=== PATIENT | female | born 1965 | race Caucasian/White ===

== ENCOUNTER 2018-08-25 11:34 | Outpatient (REF) | payer BC, MEDICAID, SELFPAY ==
[2018-08-25 15:22] LABS: Iron 40 ug/dL (50-175); Total Iron Binding Capacity 299 ug/dL (250-450); Transferrin Sat 13 % (15-50)
[2018-08-25 15:38] LABS: Anion Gap 6.8 mmol/L (3-11); BUN 13 mg/dL (7-18); CO2 30.2 mmol/L (21.0-32.0); CREATININE 1.04 mg/dL (0.55-1.02); Calcium 9.1 mg/dL (8.5-10.1); Chloride 105 mmol/L (98-107); Estimated GFR 55.65 (mL/min/1.73m2); Ferritin 47 ng/mL (8-388); Glucose 89 mg/dL (70-100); Magnesium 1.7 mg/dL (1.8-2.4); Sodium 142 mmol/L (136-145); TSH (W/Ref FT4) 1.64 uIU/mL (0.358-3.74); Vitamin B12 371 pg/mL (193-986)
== END 2018-08-25 11:54 ==
LOC: NCHCN 11:34
PROVIDERS: PCP Internal Medicine; Visit Provider Nurse Practitioner Family
DX: R10.30 Lower abdominal pain, unspecified (principal); G47.62 Sleep related leg cramps; R06.3 Periodic breathing; M54.89 Other dorsalgia; I10 Essential (primary) hypertension; F41.8 Other specified anxiety disorders; K30 Functional dyspepsia; E66.9 Obesity, unspecified; I50.9 Heart failure, unspecified; I25.2 Old myocardial infarction
CPT/HCPCS: 80048; 82607; 82728; 83540; 83550; 83735; 84443

== ENCOUNTER 2018-09-21 01:38 | Outpatient (CLI) | payer BC, MEDICAID, SELFPAY ==
--- NOTE | 2018-09-21 13:11 | DI.US_ITS ---
SYMPTOM/DIAGNOSIS: SUPRAPUBIC PAIN, R10.30 PELVIC ULTRASOUND: Transabdominal and transvaginal examination was performed. The uterus measures 7.5 cm long by 3/2 cm AP by 5.3 cm. transverse. There is an intrauterine device in good position within the endometrial canal. There is a 1.9 x 1.7 x 1.9 cm hypoechoic mass in the right fundal region of the uterus likely reflecting a fibroid The right ovary measures 1.9 x 1.1 x 1.0 cm. The left ovary measures 1.8 x 1 x 1.6 cm. The ovaries are unremarkable. No free pelvic fluid or hydronephrosis is identified. IMPRESSION: 1. 19 cm uterine fibroid 2. IUD in good position.
--- NOTE | 2018-09-21 13:56 | MERGE_ITS ---
*[facility]* *[facility]* [address] [place] [address] Date of study: 09/21/2018 Transthoracic Echocardiography M-mode, complete 2D, complete spectral Doppler, and color Doppler *STUDY CONCLUSIONS* Summary: 1. Left ventricle: The cavity size was normal. Wall thickness was at the upper limits of normal. Systolic function was normal. The estimated ejection fraction was 60-65%. Wall motion was normal; there were no regional wall motion abnormalities. 2. Right ventricle: The cavity size was normal. Systolic function was normal. 3. Left atrium: The atrium was moderately dilated. 4. Mitral valve: Mildly calcified annulus. Mildly thickened leaflets. There was mild regurgitation. 5. Pulmonary arteries: Pulmonary systolic pressure was increased, in the range of 40mm Hg to 45mm Hg. 6. Inferior vena cava: The vessel was patent and normal in size. The respirophasic diameter changes were in the normal range (greater than or equal to 50%), consistent with normal central venous pressure. *PATIENT PRESENTATION* Height: 152.4cm ((60in) ) S/D Pressure: 108 / 66 Weight: 99.8kg ((219.5lb) ) BSA: 2.12m^2 Test start time: 02:10 PM. Test stop time: 02:50 PM. CONSULTING Monty Gibbs MD PERFORMING Unknown ORDERING Leila Ayoub Aprn REFERRING Leila Ayoub Aprn PERFORMING [facility] [employer]TE[employer]CUITS INSPECTOR RT Pita (R)(CT), ADDY *PROCEDURE DATA* Procedure information: The patient was identified by two identifiers. This study was interpreted by [facility]. Pertinent images and digital data are archived for permanent storage and are available for subsequent review. No prior study was available for comparison. Study status: Routine. Transthoracic echocardiography. M-mode, complete 2D, complete spectral Doppler, and color Doppler. A Transthoracic Echocardiogram was performed. Scanning was performed from the parasternal, apical, subcostal, and suprasternal notch acoustic windows. Images were obtained using an [id number] cardiac ultrasound machine. Image quality was adequate. Study completion: The patient tolerated the procedure well. There were no complications. History: PMH: Impaired LV EF following NSTEMI ; LVRF40% I50.9 HX of NSTEMI due to hypoxia *CARDIAC ANATOMY* Left ventricle: The cavity size was normal. Wall thickness was at the upper limits of normal. Systolic function was normal. The estimated ejection fraction was 60-65%. Wall motion was normal; there were no regional wall motion abnormalities. Findings consistent with diastolic dysfunction. There was no evidence of elevated ventricular filling pressure by Doppler parameters. Aortic valve: Trileaflet; normal thickness leaflets. Mobility was not restricted. Doppler: Transvalvular velocity was within the normal range. There was no stenosis. There was no significant regurgitation. VTI ratio of LVOT to aortic valve: 0.64. Valve area (VTI): 2.1cm^2. Indexed valve area (VTI): 1cm^2/m^2. Peak velocity ratio of LVOT to aortic valve: 0.65. Valve area (Vmax): 2.1cm^2. Indexed valve area (Vmax): 1cm^2/m^2. Mean velocity ratio of LVOT to aortic valve: 0.65. Valve area (Vmean): 2.1cm^2. Indexed valve area (Vmean): 1cm^2/m^2. Mean gradient (S): 8.4mm Hg. Peak gradient (S): 15.8mm Hg. Aorta: Aortic root: The aortic root was normal in size. Ascending aorta: The ascending aorta was normal in size. Mitral valve: Mildly calcified annulus. Mildly thickened leaflets. Mobility was not restricted. Doppler: Transvalvular velocity was within the normal range. There was no evidence for stenosis. There was mild regurgitation. Valve area by pressure half-time: 2.9cm^2. Indexed valve area by pressure half-time: 1.4cm^2/m^2. Peak gradient (D): 4.5mm Hg. Left atrium: The atrium was moderately dilated. Right ventricle: The cavity size was normal. Systolic function was normal. Pulmonic valve: The pulmonary valve appears to be grossly normal. Doppler: Transvalvular velocity was within the normal range. There was no evidence for stenosis. There was trivial regurgitation. Tricuspid valve: Structurally normal valve. Doppler: Transvalvular velocity was within the normal range. There was no evidence for stenosis. There was mild regurgitation. Pulmonary artery: The main pulmonary artery was normal-sized. Pulmonary systolic pressure was increased, in the range of 40mm Hg to 45mm Hg. Right atrium: The atrium was normal in size. Pericardium: There was no pericardial effusion. Systemic veins: Inferior vena cava: Well visualized. The vessel was patent and normal in size. The respirophasic diameter changes were in the normal range (greater than or equal to 50%), consistent with normal central venous pressure. Baseline ECG: Normal sinus rhythm. Measurements Left ventricle Value Reference LV ID, ED, PLAX 5.5 cm 3.5 - 6.0 LV ID, ES, PLAX 3.7 cm 2.1 - 4.0 LV PW thickness, ED, PLAX 1.0 cm LV end-diastolic volume, 1-p A2C 108 ml LV ejection fraction, 1-p A2C 61 % LV end-diastolic volume, 1-p A4C 105 ml LV ejection fraction, 1-p A4C 68 % LV e', lateral 0.085 m/sec LV E/e', lateral 13 LV e', medial 0.078 m/sec LV E/e', medial 14 LV e', average 0.081 m/sec LV E/e', average 13 Ventricular septum Value Reference IVS thickness, ED, PLAX 1.1 cm LVOT Value Reference LVOT ID, A-P 2.0 cm LVOT area 3.2 cm^2 LVOT peak velocity, S 1.29 m/sec LVOT mean velocity, S 0.9 m/sec LVOT VTI, S 27.7 cm LVOT peak gradient, S 6.6 mm Hg LVOT mean gradient, S 3.7 mm Hg Stroke volume (SV), LVOT DP 90 ml Stroke index (SV/bsa), LVOT DP 42 ml/m^2 Aortic valve Value Reference Aortic valve peak velocity, S 2 m/sec Aortic valve mean velocity, S 1.39 m/sec Aortic valve VTI, S 43.0 cm Aortic mean gradient, S 8.4 mm Hg Aortic peak gradient, S 15.8 mm Hg VTI ratio, LVOT/AV 0.64 Aortic valve area, VTI 2.1 cm^2 Velocity ratio, peak, LVOT/AV 0.65 Aortic valve area, peak velocity 2.1 cm^2 Velocity ratio, mean, LVOT/AV 0.65 Aortic valve area, mean velocity 2.1 cm^2 Aortic valve area/bsa, mean velocity 1 cm^2/m^2 Aorta Value Reference Aortic root ID, ED 2.8 cm Ascending aorta ID, A-P, S 3.5 cm Left atrium Value Reference LA ID, A-P, ES 4.3 cm LA ID/bsa, A-P 2.0 cm/m^2 <=2.2 LA area, ES, A4C (H) 27.7 cm^2 8.8 - 23.4 LA volume/bsa, ES, 1-p A4C 50 ml/m^2 LA/aortic root ratio 1.5 Mitral valve Value Reference Mitral E-wave peak velocity 1.06 m/sec Mitral A-wave peak velocity 1.21 m/sec Mitral deceleration time (H) 263 ms 150 - 230 Mitral pressure half-time 76 ms Mitral peak gradient, D 4.5 mm Hg Mitral E/A ratio, peak 0.88 Mitral valve area, PHT, DP 2.9 cm^2 Pulmonary veins Value Reference Pulmonary vein peak velocity, S 0.53 m/sec Pulmonary vein peak velocity, D 0.34 m/sec Pulmonary vein velocity ratio, peak, 1.56 S/D Pulmonary vein A-wave reversal peak 0.26 m/sec velocity Pulmonary vein A-wave reversal 191 ms duration Tricuspid valve Value Reference Tricuspid regurg peak velocity 3.2 m/sec Tricuspid peak RV-RA gradient 41 mm Hg Right atrium Value Reference RA area, ES, A4C 16.6 cm^2 8.3 - 19.5 Legend: (L) and (H) torres values outside specified reference range. I have personally reviewed the images and have reviewed and edited the reported findings. Electronically signed by Lila Lawrence 09/21/2018 15:17
== END 2018-09-21 01:58 ==
PROVIDERS: PCP Internal Medicine; Visit Provider Nurse Practitioner Family
DX: I50.9 Heart failure, unspecified (principal); I34.0 Nonrheumatic mitral (valve) insufficiency; I25.2 Old myocardial infarction; R10.30 Lower abdominal pain, unspecified; D25.9 Leiomyoma of uterus, unspecified; Z97.5 Presence of (intrauterine) contraceptive device
CPT/HCPCS: 76830; 76856; 93306

== ENCOUNTER 2018-12-08 15:53 | Outpatient (REF) | payer BC, MEDICAID, SELFPAY ==
[2018-12-08 21:27] LABS: Magnesium 1.8 mg/dL (1.8-2.4)
== END 2018-12-08 16:13 ==
LOC: NCHCN 15:53
PROVIDERS: PCP Internal Medicine; Visit Provider Nurse Practitioner Family
DX: D25.9 Leiomyoma of uterus, unspecified (principal); I27.21 Secondary pulmonary arterial hypertension; R06.83 Snoring; E87.6 Hypokalemia; I10 Essential (primary) hypertension; K30 Functional dyspepsia; E66.9 Obesity, unspecified
CPT/HCPCS: 83735

== ENCOUNTER 2019-02-02 14:41 | Outpatient (REF) | payer BC, MEDICAID, SELFPAY ==
[2019-02-02 21:10] LABS: Magnesium 1.8 mg/dL (1.8-2.4); Potassium 3.9 mmol/L (3.5-5.1)
[2019-02-02 21:17] LABS: HCT 37.1 % (36.0-46.0); HGB 12.2 g/dL (12.0-15.5); Mean Corp. HGB Concentration 32.9 g/dL (32.0-36.0); Mean Corpuscular Hemoglobin 29.2 pg (27.0-33.0); Mean Corpuscular Volume 88.8 fL (80-95); Mean Platelet Volume 12.3 fL (8.0-11.0); Platelet Count 245 x1000/uL (130-400); RBC 4.18 m/cumm (4.00-5.20); RBC Distribution Width 13.3 % (11.7-14.6); White Blood Cell Count 8.36 k/cumm (4.4-10.8)
[2019-02-02 21:27] LABS: Iron 72 ug/dL (50-175)
== END 2019-02-02 15:01 ==
LOC: NCHCN 14:41
PROVIDERS: PCP Internal Medicine; Visit Provider Nurse Practitioner Family
DX: I10 Essential (primary) hypertension (principal); R51 Headache; E83.42 Hypomagnesemia; I27.21 Secondary pulmonary arterial hypertension; R42 Dizziness and giddiness; G47.62 Sleep related leg cramps
CPT/HCPCS: 85027; 83540; 83735; 84132

== ENCOUNTER 2019-02-23 01:05 | Outpatient (CLI) | payer BC, MEDICAID, SELFPAY ==
--- NOTE | 2019-02-23 13:41 | DI.MAMMO_ITS ---
SYMPTOM/DIAGNOSIS: SCREENING, Z12.31, FAMILY HX, Z80.3 MAMMOGRAMS: Mammograms were interpreted according to the usual protocol including computer analysis with CAD system, tomosynthesis and C view imaging. Comparison with prior examinations. Breast density B. No suspicious masses or microcalcifications are seen. There is no definite evidence of malignancy. IMPRESSION: Negative mammogram. Routine screening is recommended. Category I. MQSA ASSESSMENT OF FINDINGS: Negative. Category 1. Patient will receive a letter notifying them of these results. BI-RADS category B. There are scattered areas of fibroglandular density.
== END 2019-02-23 01:25 ==
PROVIDERS: PCP Internal Medicine; Visit Provider Nurse Practitioner Family
DX: Z12.31 Encounter for screening mammogram for malignant neoplasm of breast (principal); Z80.3 Family history of malignant neoplasm of breast
CPT/HCPCS: 77063; 77067

== ENCOUNTER 2019-04-21 00:44 | Outpatient (CLI) | payer BC, MEDICAID, SELFPAY ==
--- NOTE | 2019-04-21 09:03 | DI.MRI_ITS ---
SYMPTOM/DIAGNOSIS: LOW BACK PAIN WITH SCIATICA, HO FUSION, BILAT LEG PAIN LUMBAR SPINE MRI: Comparison is made with plain films dated 01/05/15. T 1, T 2 and STIR sagittal, T 1 coronal and T 1 and T 2 axial sequences were performed. Disc spaces are seen at the L 5-S 1 level which create mild artifact. The L 1-2 and L 2-3 disc levels appear normal. At L 3-4, there is mild loss of disc height and mild concentric disc bulging. There are mild facet degenerative changes but no significant neural foraminal narrowing. There is mild central canal stenosis mainly secondary to facet degenerative changes. At L 4-5, there is mild concentric disc bulging. There are prominent facet degenerative changes which cause mild neural foraminal encroachment on the right but no significant encroachment on the left. There is significant narrowing of the transverse dimension of the canal at this level. A laminectomy is noted at L 5. There is mild narrowing of the AP dimension of the central canal and mild bilateral neural foraminal narrowing. IMPRESSION: Mild central canal stenosis at L 3-4. Moderate central canal stenosis at L 4-5 secondary to prominent facet degenerative changes encroaching into the canal. Post surgical changes at L 5-S 1. There is mild central canal stenosis at this level as well.
== END 2019-04-21 01:04 ==
PROVIDERS: PCP Internal Medicine; Visit Provider Nurse Practitioner Family
DX: M54.40 Lumbago with sciatica, unspecified side (principal); M79.604 Pain in right leg; M79.605 Pain in left leg; M48.07 Spinal stenosis, lumbosacral region; M47.27 Other spondylosis with radiculopathy, lumbosacral region
CPT/HCPCS: 72148

== ENCOUNTER 2019-05-18 15:48 | Outpatient (REF) | payer BC, MEDICAID, SELFPAY ==
[2019-05-18 21:43] LABS: Abs Immature Grans 0.08 k/cumm (0.0-0.09); Absolute Basophil Count 0.05 k/cumm (0.0-0.2); Absolute Eosinophil Count 0.41 k/cumm (0.0-0.7); Absolute Lymphocyte Count 2.23 k/cumm (1.2-3.4); Absolute Monocyte Count 0.74 k/cumm (0.11-0.7); Absolute Neutrophil Count 5.78 k/cumm (1.2-6.7); Basophils % 0.5; Eosinophils % 4.4; HCT 33.7 % (36.0-46.0); HGB 10.6 g/dL (12.0-15.5); Immature Grans % 0.9; Mean Corp. HGB Concentration 31.5 g/dL (32.0-36.0); Mean Corpuscular Volume 92.1 fL (80-95); Mean Platelet Volume 11.5 fL (8.0-11.0); Neutrophils % 62.2; Platelet Count 222 x1000/uL (130-400); RBC 3.66 m/cumm (4.00-5.20); RBC Distribution Width 13.8 % (11.7-14.6); White Blood Cell Count 9.29 k/cumm (4.4-10.8)
[2019-05-18 21:51] LABS: Iron 56 ug/dL (50-175)
[2019-05-18 22:01] LABS: Hemoglobin A1C 5.9 % (4.5-6.2)
[2019-05-18 22:02] LABS: ALT 14 U/L (14-59); AST 16 U/L (15-37); Albumin 3.6 g/dL (3.4-5.0); Alkaline Phosphatase 141 U/L (46-116); Anion Gap 5.5 mmol/L (3-11); BUN 12 mg/dL (7-18); Bilirubin, Total 0.3 mg/dL (0.2-1.0); CO2 31.5 mmol/L (21.0-32.0); CREATININE 1.11 mg/dL (0.55-1.02); Calcium 8.6 mg/dL (8.5-10.1); Chloride 106 mmol/L (98-107); Cholesterol 192 mg/dL (50-200); Estimated GFR 51.42 (mL/min/1.73m2); Glucose 103 mg/dL (70-100); HDL Cholesterol 36 mg/dL (40-60); Magnesium 1.7 mg/dL (1.8-2.4); Sodium 143 mmol/L (136-145); TSH (W/Ref FT4) 2.62 uIU/mL (0.36-3.74); Total Protein 7.2 g/dL (6.4-8.2); Triglyceride 462 mg/dL (30-150)
[2019-05-18 22:14] LABS: LDL CHOLESTEROL 94 mg/dL (<100)
== END 2019-05-18 16:08 ==
LOC: NCHCN 15:48
PROVIDERS: Nurse Practitioner Family; PCP Internal Medicine; Visit Provider Nurse Practitioner Family
DX: E83.42 Hypomagnesemia (principal); I10 Essential (primary) hypertension; R51 Headache; I27.21 Secondary pulmonary arterial hypertension; R42 Dizziness and giddiness; R06.83 Snoring; J68.2 Upper respiratory inflammation due to chemicals, gases, fumes and vapors, not elsewhere classified; Z86.2 Personal history of diseases of the blood and blood-forming organs and certain disorders involving the immune mechanism
CPT/HCPCS: 80053; 80061; 83721; 83036; 83540; 83735; 84443; 85025

== ENCOUNTER 2019-06-22 07:55 | Outpatient (CLI) | payer BC, MEDICAID, SELFPAY ==
[2019-06-22 08:03] VITALS: BP 118/76; PULSE 87; RESP 22; TEMP 37.5; O2SAT 96
[2019-06-22 08:45] VITALS: BP 138/84; PULSE 83; RESP 22; O2SAT 97
--- NOTE | 2019-06-22 08:47 | PDOC.PAIN_ITS ---
Pain Clinic Procedure Note Procedure Note Procedure Note: PROCEDURE NOTE CAUDAL EPIDURAL STERIOID INJECTION Date of Service: June 22, 2019 Patient: SERG YATES Provider: CANDELARIO ADHIKARI MD SERG YATES has been [facility] for caudal epidural steroid injection. Pre-operative diagnosis: post laminectomy syndrome, lumbar radiculopathy Post-operative diagnosis: same as above COMMENTS: Referring provider: Adrianna Lgauna APRN Symptoms: back and leg pain, left more than right today Imaging reviewed: MRI L spine SERG was interviewed and the medical record was reviewed. There were no medical, pharmacologic, radiographic or other structural contraindications to attempting fluoroscopically guided epidural steroid injection. Risks and expected side effects as well as potential benefit of the procedure were reviewed with Ms YATES, and her voiced concerns were addressed. The printed consent form was signed and witnessed. Standard time-out procedure was performed. Ms YATES was placed in the prone position on the fluoroscopy table and automated blood pressure cuff and pulse oximeter applied. The skin entry point for entering/approaching the epidural space by a caudal approach through the sacral hiatus ed identified with surgical skin marking. Following thorough chlorhexidine preparation x 2 of the skin and draping and 1% lidocaine infiltration of the skin entry point and subcutaneous tissues, a 17 gauge Touhy needle was placed under fluoroscopic guidance into the epidural space. Needle tip placement and depth were aided and confirmed by fluoroscopy in the lateral and AP position. There was no paresthesia or return of blood or CSF through the needle. 1 cc of Omnipaque 240 was injected with clear epidural spread confirmed with fluoroscopy. An Arrow 19G radio-opaque epidural catheter was advanced into the epidural space to the L5-S1 level and 0.5 cc of Omnipaque 240 was injected with clear epidural spread. 80 mg of Depomedrol was injected. There was no unusual discomfort expressed by SERG . The needle and catheter were then flushed with 1 cc of 1% Lidocaine and 1cc of preservative free normal saline, they were removed without difficulty. (48 cc of Omnipaque was wasted) Ms YATES's vital signs were stable throughout the procedure and were as recorded in the docflowsheet by the nursing staff. If given, dosages of intravenous drugs for anxiolysis and analgesia were documented in MAR. Follow up plans and appointments were discussed with Ms ESPINOZAE. Post procedure instruction was given as documented in nursing documentation and mónica duarte met discharge criteria, she was [facility] from the [facility]. COMMENTS: No apparent complications. This procedure can be completed up to 3 times per 12 months. Follow-up with Adrianna Laguna on prn basis. I personally completed the entire procedure. CANDELARIO ADHIKARI MD [employer]/[facility] [employer] [facility] ABPN - Subspecialty board certification in Pain Medicine
--- NOTE | 2019-06-22 08:47 | DI.RAD_ITS ---
EXAM: XR PAIN CLINIC LUMBAR SP 2V CLINICAL HISTORY: lumbar epidural steroid injection, LUMBAR RADICULOPATHY TECHNIQUE: Realtime digital imaging was performed. COMPARISON: No exams were available for comparison FINDINGS: Fluoroscopy was utilized by Dr. Barriga during the performance of a lumbar epidural steroid injection. Pl ease refer to the procedure report for complete details. FLUORO TIME: 20.7 seconds
[2019-06-22] MEDS: Omnipaque 240 MG/ML 50 ML BTL IJ (08:55)
[2019-06-22] MEDS: methylPREDNISolone ACETATE 80 MG/ML VIAL IM (08:57)
== END 2019-06-22 08:15 ==
PROVIDERS: PCP Internal Medicine; Visit Provider Internal Medicine
DX: M54.16 Radiculopathy, lumbar region (principal); M96.1 Postlaminectomy syndrome, not elsewhere classified
CPT/HCPCS: 62323; 72100; J1040; Q9967

== ENCOUNTER 2019-10-07 08:01 | Day surgery (SDC) | payer BC, MEDICAID, SELFPAY ==
[2019-10-07 08:32] VITALS: BP 128/88; PULSE 96; RESP 20; TEMP 36.4; O2SAT 94
[2019-10-07] MEDS: Lactated Ringers 1,000 ML 80 ML IV (09:05)
--- NOTE | 2019-10-07 10:41 | NUR.NOTE ---
Addendum entered by Tiesha Cintron 10/07/19 10:52: 1015: Gustavo Hinojosa CRNA, cancelled pt's procedure today. [employer] in touch with pt's PCP and PCP to contact pt. with cardiology consult later today. [employer] educated pt. if she takes nitro or has chest pain she needs to call 911/go to ER. Pt. and sister aware. DC paperwork completed. Inhaler returned to pt. Pt. states she is ready to leave, pt. ambulated from [facility] accompanied by her sister. Original Note: Nursing Note:[id number]:: Gustavo Hinojosa CRNA, made aware of pt's report of chest pain on Friday10/03/19,pt. reporting she took one nitro with no relief , took one more and chest pain relieved. Pt. also reporting she is more SOB lately. Pt. states she is using her inhaler more and that she cant even walk to BR without getting SOB. 1015: Gustavo Carpenter
== END 2019-10-07 08:21 ==
PROVIDERS: PCP Internal Medicine; Visit Provider Urology
DX: R69 Illness, unspecified (principal)

== ENCOUNTER 2019-10-11 12:10 | Outpatient (REF) | payer BC, MEDICAID, SELFPAY ==
[2019-10-13 14:08] LABS: 2-Hydroxy Ethyl Flurazepam Not Detected ng/mL (Cutoff: 10); 6-monoacetylmorphine Not Detected ng/mL (Cutoff: 25); Alpha-Hydroxy Midazolam Not Detected ng/mL (Cutoff: 10); Alpha-Hydroxy Triazolam Not Detected ng/mL (Cutoff: 10); Alpha-Hydroxyalprazolam Not Detected ng/mL (Cutoff: 10); Alpha-OH-alprazolam Glucuronid Not Detected ng/mL (Cutoff: 50); Alprazolam Not Detected ng/mL (Cutoff: 10); Amphetamines Negative ng/mL (Cutoff: 500); Barbiturates Negative ng/mL (Cutoff: 200); Buprenorphine Not Detected ng/mL (Cutoff: 5); Chlordiazepoxide Not Detected ng/mL (Cutoff: 10); Clobazam Not Detected ng/mL (Cutoff: 10); Clonazepam Not Detected ng/mL (Cutoff: 10); Cocaine Negative ng/mL (Cutoff: 150); Codeine Not Detected ng/mL (Cutoff: 25); Comment Normal; Creatinine, U 62.8 mg/dL; Diazepam Not Detected ng/mL (Cutoff: 10); Dihydrocodeine Not Detected ng/mL (Cutoff: 25); EDDP Not Detected ng/mL (Cutoff: 25); Fentanyl Not Detected ng/mL (Cutoff: 2); Flurazepam Not Detected ng/mL (Cutoff: 10); Hydrocodone Not Detected ng/mL (Cutoff: 25); Hydromorphone Not Detected ng/mL (Cutoff: 25); Hydromorphone-3-beta-glucuroni Not Detected ng/mL (Cutoff: 100); Lorazepam Not Detected ng/mL (Cutoff: 10); Lorazepam Glucuronide Not Detected ng/mL (Cutoff: 50); Meperidine Not Detected ng/mL (Cutoff: 25); Methadone Not Detected ng/mL (Cutoff: 25); Midazolam Not Detected ng/mL (Cutoff: 10); Morphine Not Detected ng/mL (Cutoff: 25); N-Desmethylclobazam Not Detected ng/mL (Cutoff: 200); N-desmethyltapentadol Not Detected ng/mL (Cutoff: 50); Naloxone Not Detected ng/mL (Cutoff: 25); Norfentanyl Not Detected ng/mL (Cutoff: 2); Norhydrocodone Not Detected ng/mL (Cutoff: 25); Normeperidine Not Detected ng/mL (Cutoff: 25); Noroxycodone Not Detected ng/mL (Cutoff: 25); Noroxymorphone Not Detected ng/mL (Cutoff: 25); O-desmethyltramadol Not Detected ng/mL (Cutoff: 25); Oxazepam Glucuronide Not Detected ng/mL (Cutoff: 50); Phencyclidine Negative ng/mL (Cutoff: 25); Prazepam Not Detected ng/mL (Cutoff: 10); Propoxyphene Not Detected ng/mL (Cutoff: 25); Specific Gravity 1.006; Tapentadol Not Detected ng/mL (Cutoff: 25); Temazepam Not Detected ng/mL (Cutoff: 10); Temazepam Glucuronide Not Detected ng/mL (Cutoff: 50); Tetrahydrocannabinol Presumptive Positive ng/mL (Cutoff: 50); Tramadol Not Detected ng/mL (Cutoff: 25); Triazolam Not Detected ng/mL (Cutoff: 10); Zolpidem Phenyl-4-Carboxy acid Not Detected ng/mL (Cutoff: 10); pH 5.9
[2019-10-13 16:00] LABS: Carboxy-THC Interpretation Positive.; Delta-9 CarboxyThc by LC-MS/MS 158 ng/mL (Cutoff:<3)
== END 2019-10-11 12:30 ==
LOC: LBN 12:10
PROVIDERS: PCP Internal Medicine; Visit Provider Nurse Practitioner Family
DX: M96.1 Postlaminectomy syndrome, not elsewhere classified (principal); Z79.899 Other long term (current) drug therapy
CPT/HCPCS: 80307; 80347; 80349; 80364

== ENCOUNTER 2019-10-27 12:43 | Inpatient (IN) | payer BC, MEDICAID, SELFPAY ==
[2019-10-27] VITALS (89 sets, daily range): BP systolic 87–148; BP diastolic 43–90; PULSE 92–186; RESP 11–25; TEMP 36.3–37.3; O2SAT 88–100
--- NOTE | 2019-10-27 12:45 | DI.CT_ITS ---
EXAM: CT HEAD WO CLINICAL HISTORY: Alteredmental status COMPARISON: No exams were available for comparison FINDINGS: Noncontrast cranial CT was performed. No calvarial fracture seen. Orbital and temporal bone structu res appear intact. Mastoid air cells and paranasal sinuses are well aerated as visualized. Ventricu lar system is normal in appearance. No evidence of acute intracranial hemorrhage, mass effect, or mi dline shift. IMPRESSION: No evidence of acute intracranial process.
--- NOTE | 2019-10-27 12:55 | DI.RAD_ITS ---
EXAM: XR CHEST 1V IN DI DEPT CLINICAL HISTORY: altered TECHNIQUE: COMPARISON: PORTABLE AP CHEST from 06/14/2010 FINDINGS: Portable AP chest was obtained. There is a poor inspiration. There is crowding of pulmonary marking s, minimal interstitial process not entirely excluded. No focal consolidation seen. Question mild c ardiomegaly, probably normal cardiac size allowing for AP view and poor inspiration. IMPRESSION: No definite acute process.
--- NOTE | 2019-10-27 12:58 | W.ED.GENAD ---
Discharge Plan Disposition Patient Disposition: [facility] INPATIENT Condition: Stable Discharge Details Chief Complaint: GenMedical Clinical Impression: Overdose of sedative or hypnotic, Altered mental status Admit Date/Time: 10/27/19 15:34 Admit Provider: Fatimah Sheppard Attending Provider: Fatimah Sheppard Primary Care Provider: Monty Gibbs ED Provider: Sam Nash Discharge Data Discharge Date/Time-TO BE ENTERED AT DEPARTURE: 10/27/19 16:20 Medical Decision Making 53-year-old female with a past medical history of insomnia, hypertension, previous LA, mental health issues, depression, previous suicide attempts, obesity, presents today for altered mental status. Last known well was last night. This morning a wellness check was performed, the patient was noted by EMS to be found stuck between her bed and the wall which was a small enclosed space. She was altered. On the table near this area there was per EMS a bong or some form of smoking paraphernalia, as well as her clonazepam and her quetiapine, but EMS did not note that the bottles were empty. No other history is available. EMS did check blood sugar at the scene and this was normal. No evidence of foul play. No other complaints at this time. No other modifying factors. Exam demonstrates no focal evidence of trauma, GCS is 11, notably altered but she does respond to questioning painful stimuli. Gag reflex is intact. She does complain of pain in her left hip and knee, however it is difficult to ascertain more information in regards to this. Initially on her first presentation her blood pressure was low in the 90s systolic, however upon all subsequent checks it is been notably elevated in the 120s to 130s systolic. Bedside limited ultrasound shows a small trace pericardial effusion and fat pad, no signs of pericardial tamponade. Body habitus does make exam challenging. Differential is notably broad, but includes sepsis, overdose, intracranial pathology. Per EMS and family the patient's baseline does include chronic slurred speech. We will evaluate for potential is abnormalities and etiologies to cause her symptoms, monitor closely and reassess. This time there is no indication for intubation. 3 PM I have spoken with the patient's daughter, and patient's daughter states that the patient has a history of previous suicide attempts, in the past she has tried to take pills to end her life. Although the patient denies this in her slightly altered state at this time, with the clonazepam, quitaprine as well as the daughters high concern that she may have taken x-rays of her medications, I am concerned that this may certainly be the case. Currently I cannot see any source of clear infectious etiology. CT scan per radiology is negative for acute process. I did get a lumbar spine x-ray to evaluate for abscess or mass as upon review of records she has had some notably confrontational recent visits to the back pain clinic, however she is also received some injections but has not followed up secondary to her leaving the practice and the confrontational visits. However per radiology there is no evidence of significant abnormality. X-rays of the hip and knee are negative for acute process. Laboratory work-up does show a notably elevated lactic acid however anion gap is relatively unremarkable at 14, and pH is minimally acidotic at 7.3. Bicarb is 24. Carboxyhemoglobin normal, CPK normal, renal function is stable. Ammonia normal, troponin EKG are normal, QRS is not prolonged, QT is not overly prolonged. Salicylates and acetaminophen are negative. Flu negative. Urine drug screen is positive for tricyclics benzos and THC. Alcohol negative. Patient remains in a sedated state, she has sonorous respirations, gag reflex is intact. She still responds to questions and stimulation. Suspect that she overdosed on a sedative hypnotic combination. This time I do feel that she is still stable, I do not see an indication for intubating currently. We will contact the hospitalist and discussed for admission. 4 PM Discussed the case with Dr. Sheppard, she agrees with the assessment and plan. Dr. Sheppard will place orders for admission. Recommend ICU. I have extensively reviewed the treatment plan with the patient. I have addressed all patient concerns at this time. I have also discussed the plan with the admitting physician and they agree with the current assessment and plan and have agreed to assume responsibility for the patient. All parties demonstrate verbal understanding and agreement with our assessment and plan at this time. EKG 12: 49 Rate 100, sinus rhythm, WV 166, QTc 462, QRS 98, no significant ST elevations or depressions, no evidence of STEMI. HPI General Date/Time Provider Initiated Documentation: 10/27/19 12:58. HPI Narrative: 53-year-old female with a past medical history of insomnia, hypertension, previous LA, mental health issues, depression, previous suicide attempts, obesity, presents today for altered mental status. Last known well was last night. This morning a wellness check was performed, the patient was noted by EMS to be found stuck between her bed and the wall which was a small enclosed space. She was altered. On the table near this area there was per EMS a bong or some form of smoking paraphernalia, as well as her clonazepam and her quetiapine, but EMS did not note that the bottles were empty. No other history is available. EMS did check blood sugar at the scene and this was normal. No evidence of foul play. No other complaints at this time. No other modifying factors. Related Data Home Medications Medication Instructions Recorded Confirmed cholecalciferol (vitamin D3) 1,000 unit PO HS 03/02/13 10/27/19 Spiriva with HandiHaler 2 puff INHALATION DAILY 12/13/15 10/27/19 atorvastatin [Lipitor] 40 mg PO HS 12/13/15 10/27/19 Fish Oil 1 ea PO DAILY 02/02/18 10/27/19 Narcan 4 mg NS PRN #2 spray 02/02/18 10/07/19 Probiotic 1 ea PO DAILY 02/02/18 10/27/19 Vyvanse 70 mg PO QAM 02/02/18 10/27/19 albuterol sulfate [Proventil HFA] 1 - 2 puff INHALATION Q4H PRN 02/02/18 10/27/19 inhaler amlodipine 10 mg PO DAILY tab-cap 02/02/18 10/27/19 aspirin 81 mg PO DAILY tab 02/02/18 10/27/19 famotidine 20 mg PO DAILY tab-cap 02/02/18 10/27/19 fluticasone propion-salmeterol 1 puff INHALATION BID disk 02/02/18 10/27/19 [Advair Diskus] nitroglycerin [Nitrostat] 0.4 mg SUBLINGUAL DIRECTED PRN 02/02/18 10/27/19 omeprazole 20 mg PO DAILY tab-cap 02/02/18 10/27/19 propranolol 40 mg PO BID 02/02/18 10/28/19 darifenacin [Enablex] 15 mg PO DAILY 02/04/18 10/27/19 furosemide 20 mg tablet 10 mg PO DAILY tab 02/26/19 10/27/19 potassium chloride 20 mEq 20 meq PO BID 02/26/19 10/27/19 tablet,extended release zolpidem 5 mg tablet 5 mg PO QHS PRN 02/26/19 10/27/19 clonazepam 0.5 mg tablet 0.5 mg PO TID tab 04/14/19 10/27/19 quetiapine 400 mg tablet 200 mg PO QHS tab 04/14/19 10/27/19 mirabegron 50 mg tablet,extended 50 mg PO DAILY #90 tab-cap 09/28/19 10/27/19 release 24 hr vortioxetine [Trintellix] 10 mg PO DAILY 10/07/19 10/11/19 acetaminophen [Tylenol Arthritis 650 mg PO Q8H 10/27/19 10/27/19 Pain] magnesium chloride [Mag 64] 64 mg PO BID 10/27/19 10/27/19 elhdrihg-jis-oxig-FA-lutein 1 tab PO DAILY 10/27/19 10/27/19 [[employer]] topiramate [Topamax] 50 mg PO DAILY 10/27/19 10/27/19 pregabalin 100 mg PO TID 10/28/19 10/28/19 vilazodone 40 mg PO BID 10/28/19 10/28/19 Previous Rx's Medication Instructions Recorded mirabegron 50 mg tablet,extended 50 mg PO DAILY #90 tab-cap 09/28/19 release 24 hr Allergies Allergy/AdvReac Type Severity Reaction Status Date / Time sertraline [From Zoloft] Allergy Severe Agitation Verified 10/27/19 12:49 lisinopril Allergy Intermediate lips swell Unverified 10/27/19 12:49 General Stated Complaint: GenMedical IVAN: 3 Review of Systems All systems reviewed & are unremarkable except as noted in HPI and below PFSH Social History (Updated 10/11/19 @ 11:54 by Na Cannon) Smoking/Tobacco Use Status: Never Alcohol Intake: never Drug use: Daily Substance use type: marijuana Details: marijuana: half joint Household members: none Housing: apartment Do you feel safe at home: Yes Do you feel safe in your relationship?: Yes Exam Narrative Exam Narrative: 1.Const: Well-nourished, Well-developed, appearing stated age, obese 2.Eyes: PERRL, no conjunctival injection, and symmetrical lids. Pupils are not pinpoint 3.ENT: Atraumatic external nose and ears. Neck: Symmetric, trachea midline, No thyromegaly. Notably dry mucous membranes patient demonstrates good movement of cervical neck. There is no nuchal rigidity, no nuchal tenderness. Patient is able to flex the neck without any difficulty or significant pain. Negative Kernig's and Brudzinski sign. 4.CVS: +S1/S2, No murmurs or gallops. Peripheral pulses 2+ and equal in all extremities. Brisk capillary refill in all extremities. 5.RESP: Unlabored respiratory effort. Sonorous respirations, otherwise clear to auscultation bilaterally. 6.GI: Soft, Nontender/Nondistended, No hepatosplenomegaly. No guarding or rebound. 7.MSK: Normocephalic/Atraumatic, Extremities w/o deformity. No cyanosis or clubbing, Normal movement of all extremities. Patient does complain of pain in the left hip and left knee with movements, however due to mental status it is difficult to fully elicit focality to this. 8.Skin: Warm, Dry. No rashes or lesions. Negative Nikolsky sign. No large vesicles or bulla. No palpable purpura. No oral lesions. No mucosal lesions. No evidence of severe cellulitis. No evidence of vaccine preventable rash. 9.Neuro: GCS of 11 secondary to eye response only to pain, inappropriate words, and otherwise obeys commands and localizes the pain. Patient appears notably sedated, gag reflex is intact at this time. No upward movement of toes for Babinski reflex, no hyperreflexia. No asterixis. Patient is able to hold the upper extremities up for greater than 10 seconds, lower extremities are more difficult to elicit strength testing secondary to exam noncompliance. Words are slightly slurred. Course Vital Signs Vital signs: Vital Signs Temperature 37.3 C 10/27/19 12:43 Pulse 105 H 10/27/19 12:43 Respiratory Rate 18 10/27/19 12:43 Blood Pressure 92/58 L 10/27/19 12:43 Pulse Oximetry 97 10/27/19 12:43 Temperature 37.3 C 10/27/19 12:43 Temperature Source Tympanic 10/27/19 12:43 Pulse 105 H 10/27/19 12:43 Respiratory Rate 18 10/27/19 12:43 Blood Pressure 92/58 L 10/27/19 12:43 Blood Pressure Position Sitting 10/27/19 12:43 Pulse Oximetry 97 10/27/19 12:43 Oxygen Delivery Method Room Air 10/27/19 12:43 Oxygen Flow Rate 0 10/27/19 12:43 Pain Level 6 10/27/19 12:43 Lab/Test Results Lab/Test Results: 10/27/19 12:55 Blood Blood Culture - Pending 10/27/19 12:55 Blood Blood Culture - Pending
--- NOTE | 2019-10-27 13:00 | DI.CT_ITS ---
EXAM: CT LUMBAR SPINE WO CLINICAL HISTORY: altered, recent lumbar spine injections COMPARISON: No exams were available for comparison FINDINGS: Noncontrast CT examination of the lumbar spine was performed. Visualized lung bases show minimal ate lectasis. There are prominent hypertrophic degenerative changes of the facet joints and endplates th roughout the lumbar region. Vertebroplasty noted at L5-S1. Posterior laminectomy and fusion noted at the lumbosacral junction. No gross acute bony erosion, abscess, or space-occupying lesion identified. IMPRESSION: No evidence of acute process. If there is a clinical suspicion of epidural abscess, additional evalu ation with MRI would be recommended.
[2019-10-27] MEDS: Normal Saline 1,000 ML 1000 ML IV (13:05)
[2019-10-27] MEDS: Ondansetron 4 MG/2 ML VIAL IVP (13:10)
[2019-10-27 13:14] LABS: Carboxyhemoglobin 1.7 %; Lactate 6.2 mmol/L (0.6-1.4)
[2019-10-27 13:15] LABS: BE (Venous) -2.9 mmol/L (-3-3); HCO3 (Venous) 24 mmol/L (22-28); O2 Sat (Venous) 87 % (70-80); TCO2 (Venous) 22 mmol/L (22-29); pCO2 (Venous) 48 mm/Hg (34-47); pO2 (Venous) 61 mm/Hg (28-44)
[2019-10-27 13:18] LABS: Abs Immature Grans 0.06 k/cumm (0.0-0.09); Absolute Eosinophil Count 0.01 k/cumm (0.0-0.7); Absolute Lymphocyte Count 0.96 k/cumm (1.2-3.4); Basophils % 0.2; Eosinophils % 0.1; HCT 36.4 % (36.0-46.0); HGB 11.4 g/dL (12.0-15.5); Immature Grans % 0.5 %; Lymphocytes % 7.5; Mean Corp. HGB Concentration 31.3 g/dL (32.0-36.0); Mean Corpuscular Hemoglobin 27.8 pg (27.0-33.0); Mean Corpuscular Volume 88.8 fL (80-95); Mean Platelet Volume 10.7 fL (8.0-11.0); Monocytes % 6.3; Neutrophils % 85.4; Platelet Count 236 x1000/uL (130-400); RBC Distribution Width 15.4 % (11.7-14.6); White Blood Cell Count 12.77 k/cumm (4.4-10.8)
[2019-10-27 13:20] LABS: Absolute Basophil Count 0.03 k/cumm (0.0-0.2); Absolute Neutrophil Count 10.91 k/cumm (1.2-6.7)
[2019-10-27] MEDS: Naloxone 0.4 MG/ML VIAL IVP (13:20)
--- NOTE | 2019-10-27 13:26 | NUR.NOTE ---
narcan given as orderd , no change , pt continues to snore but does speak when spoken to Nursing Note:
[2019-10-27 13:29] LABS: Creatine Kinase 70 U/L (26-192)
[2019-10-27 13:32] LABS: Ammonia < 10 umol/L (11-32); Salicylate 2.8 mg/dL (2.8-20.0)
[2019-10-27 13:33] LABS: PTT Activated 25.7 sec (21.0-31.4); Prothrombin Time 10.4 sec (9.3-11.0)
[2019-10-27 13:37] LABS: ALT 21 U/L (14-59); AST 16 U/L (15-37); Albumin 3.3 g/dL (3.4-5.0); Alkaline Phosphatase 169 U/L (46-116); Anion Gap 14.7 mmol/L (3-11); BUN 13 mg/dL (7-18); Bilirubin, Total 0.4 mg/dL (0.2-1.0); CO2 24.3 mmol/L (21.0-32.0); CREATININE 1.27 mg/dL (0.55-1.02); Calcium 9.1 mg/dL (8.5-10.1); Chloride 105 mmol/L (98-107); ETHANOL BLOOD < 3.0 mg/dL (<3); Estimated GFR 44.02 (mL/min/1.73m2); Glucose 218 mg/dL (74-106); Lipase 61 U/L (73-393); NT-proBNP 296 pg/mL (<300); Potassium 3.6 mmol/L (3.5-5.1); Sodium 144 mmol/L (136-145); TSH (W/Ref FT4) 2.58 uIU/mL (0.36-3.74); Total Protein 7.9 g/dL (6.4-8.2)
[2019-10-27 13:42] LABS: Acetaminophen < 2 ug/mL (10-30)
[2019-10-27 13:47] LABS: Troponin I < 0.05 ng/Ml (<0.06)
[2019-10-27 13:53] LABS: Bilirubin Negative (Negative); Blood Negative (Negative); Clarity Clear (Clear); Glucose Negative (Negative); Ketones Negative (Negative); Leukocyte Esterase Negative (Negative); Nitrite Negative (Negative); Specific Gravity 1.025 (1.005-1.025); Urobilinogen 0.2 EU/dL (Up TO 0.2)
[2019-10-27 14:02] LABS: *AMPHETAMINES SCREEN URINE Negative (Negative); *BARBITURATES SCREEN URINE Negative (Negative); *BENZODIAZEPINES SCREEN URINE POSITIVE (Negative); Cannabinoids THC POSITIVE (Negative); Cocaine Screen,Urine Negative (Negative); METHADONE URINE SCREEN Negative (Negative); OPIATES URINE SCREEN Negative (Negative)
[2019-10-27 14:07] LABS: Tricyclic Antidepressants POSITIVE (Negative)
--- NOTE | 2019-10-27 14:55 | DI.RAD_ITS ---
EXAM: XR HIP LT COMPLETE AP PELVIS CLINICAL HISTORY: altered, left hip pain TECHNIQUE: COMPARISON: XR KNEE LT 3V AP,LAT,SONI from 10/27/2019 FINDINGS: Three views of the left hip and pelvis were obtained. There are bilateral hip replacements in positio n. The components appear well seated. No other significant bony abnormality seen. Three views of the knee were obtained. There is a total knee joint replacement in position. Component s appear well seated. No other significant bony abnormality seen. IMPRESSION:
--- NOTE | 2019-10-27 16:08 | NUR.NOTE ---
Nursing Note: PT care report transferred to Lynsey EPSTEIN in the ICU. All Pt care information, treatments, and interventions provided to receiving RN. At the time of transfer the patient is alert and oriented, vitals stable.
--- NOTE | 2019-10-27 16:10 | HPE_ITS ---
Date of service: 10/27/19 Time of Service: 16:10 Assessment and Plan Assessment and plan (1) Toxic metabolic encephalopathy: Status: Acute Assessment and plan: likely due to suspected overdose. Doubt [employer] pathology or underlying infection, but checking procalcitonin/CRP. Admitted to the ICU. NPO. Monitor mental status. I do not think that her pH/CO2 are big factors here - not in CO2 narcosis. Can protect airway - will monitor without intubation. No evidence to suggest a CVA. (2) Overdose: Status: Suspected Assessment and plan: Has history thereof. Will require a mental health evaluation once mental status improves. Obtain EKG. MOnitor on tele. Trend troponins, Lactate. (3) COPD (chronic obstructive pulmonary disease): Status: Chronic Assessment and plan: Not in acute exacerbation. Provide prn nebs. (4) CAD (coronary artery disease): Status: Chronic Assessment and plan: S/p NSTEMI. Trend troponins, checking EKG. Cardiac monitoring. (5) RADAMES on CPAP: Status: Chronic Assessment and plan: I think it will be safe to place the patient on CPAP tonight; however, for now, would abstain given recent vomiting in the ED. (6) Leucocytosis: Status: Acute Assessment and plan: No evidence of infection, but checking procalcitonin just in case. Could be simply a reactive process. Will hold off abx for now. (7) Elevated lactic acid level: Status: Acute Assessment and plan: Appears to be decreasing significantly with a little oxygen supplementation and otherwise on its own. Continue to trend. (8) Hyperglycemia: Status: Acute Assessment and plan: Check A1C. Provide SSI. Suspect has DM. (9) Depression: Status: Acute Assessment and plan: Mental health consult once awake/mental status improves (10) DVT prophylaxis: Status: Acute Assessment and plan: Heparin SC (11) Discharge planning issues: Status: Acute Assessment and plan: Full code. Admitted to ICU. Critical Care Time 45 minutes. History of Present Illness History of Present Illness Chief Complaint: Altered mental status Narrative: Ms Matson is a 53 year old female with PMHx of prior overdose attempt, depression/anxiety, COPD, RADAMES on CPAP, CAD s/p NSTEMI, morbid obesity, who was found wedged between the bed and the wall, altered. GCS score in the ED 11, arousable, but falls promptly asleep with snoring. When awake, was spitting at staff, so a face shield was placed on her. EMS did see a smoking device with wha t appears to be clonazepam and quetiapine. The patient is arousable enough to report hip pain to the ED provider, but falls promptly back asleep. She is arousable to loud voice and painful stimuli, but cannot answer any questions. Reported hip pain in ED, but not to me. Nausea/vomiting in ED x 1. I am unable to verify her medications. Review of Systems Unobtainable due to mental status [facility] Social History (Updated 10/11/19 @ 11:54 by Na Cannon) Smoking/Tobacco Use Status: Never Alcohol Intake: never Drug use: Daily Substance use type: marijuana Details: marijuana: half joint Household members: none Housing: apartment Do you feel safe at home: Yes Do you feel safe in your relationship?: Yes Meds Home Medications and Allergies Home Medications Medication Instructions Recorded Confirmed Type cholecalciferol (vitamin D3) 1,000 unit PO HS 03/02/13 10/27/19 History Spiriva with HandiHaler 2 puff INHALATION DAILY 12/13/15 10/27/19 History atorvastatin [Lipitor] 40 mg PO HS 12/13/15 10/27/19 History Fish Oil 1 ea PO DAILY 02/02/18 10/27/19 History Narcan 4 mg NS PRN #2 spray 02/02/18 10/07/19 History Probiotic 1 ea PO DAILY 02/02/18 10/27/19 History Vyvanse 70 mg PO QAM 02/02/18 10/27/19 History albuterol sulfate [Proventil HFA] 1 - 2 puff INHALATION Q4H PRN 02/02/18 10/27/19 History inhaler amlodipine 10 mg PO DAILY tab-cap 02/02/18 10/27/19 History aspirin 81 mg PO DAILY tab 02/02/18 10/27/19 History famotidine 20 mg PO DAILY tab-cap 02/02/18 10/27/19 History fluticasone propion-salmeterol 1 puff INHALATION BID disk 02/02/18 10/27/19 History [Advair Diskus] nitroglycerin [Nitrostat] 0.4 mg SUBLINGUAL DIRECTED PRN 02/02/18 10/27/19 History omeprazole 20 mg PO DAILY tab-cap 02/02/18 10/27/19 History propranolol 20 mg PO BID 02/02/18 10/27/19 History darifenacin [Enablex] 15 mg PO DAILY 02/04/18 10/27/19 History furosemide 20 mg tablet 10 mg PO DAILY tab 02/26/19 10/27/19 History potassium chloride 20 mEq 20 meq PO BID 02/26/19 10/27/19 History tablet,extended release zolpidem 5 mg tablet 5 mg PO QHS PRN 02/26/19 10/27/19 History clonazepam 0.5 mg tablet 0.5 mg PO TID tab 04/14/19 10/27/19 History quetiapine 400 mg tablet 200 mg PO QHS tab 04/14/19 10/27/19 History mirabegron 50 mg tablet,extended 50 mg PO DAILY #90 tab-cap 09/28/19 10/27/19 Rx release 24 hr vortioxetine [Trintellix] 10 mg PO DAILY 10/07/19 10/11/19 History acetaminophen [Tylenol Arthritis 650 mg PO Q8H 10/27/19 10/27/19 History Pain] magnesium chloride [Mag 64] 64 mg PO BID 10/27/19 10/27/19 History owmveeog-sxm-ohlq-FA-lutein 1 tab PO DAILY 10/27/19 10/27/19 History [[employer]] topiramate [Topamax] 50 mg PO DAILY 10/27/19 10/27/19 History Allergies Allergy/AdvReac Type Severity Reaction Status Date / Time sertraline [From Zoloft] Allergy Severe Agitation Verified 10/27/19 12:49 lisinopril Allergy Intermediate lips swell Unverified 10/27/19 12:49 Exam Narrative Exam Narrative: General: Obese female, asleep, arousable, not answering coherently, falls back asleep, snoring loudly. Does not appear to have any apneic episodoes. Neurological: Lethargic, arousable, not staying awake long enough to answer questions, no obvious focal deficits Psychiatric: difficult to assess given mental status Skin: dry/intact HEENT: Atraumatic, normocephalic, opens eyes to command, EOMI, pupils equal, round, not constricted, 3 mm in diameter, dry MM, unable to perform a good oropharyngeal exam due to mental status, no goiter or JVD Cardiovascular: RRR, no m/r/g Lungs: CTAB, snoring loudly Gastrointestinal: soft, nontender, nondistended Genitourinary: did not yet have a davis Extremities: trace edema B feet, no c/c. 1+ pedal pulses B Results Imaging Additional studies: CT head: official read pending; per my read, wnl. CXR: official read pending; per my read, No obvious infiltrate; ?mild vs poor inspiratory effort CT lumbar spine: official read pending. Per ED provider conversation with radiology, reportedly nml study - specifically, no abscess. XR hip, pelvis, knee: official reads pending. Per my read, XR L knee shows intact hardware with preserved joint space, and xr L hip/pelvis shows intact B hip replacements, ? [address]? EKG: reportedly wnl; it is unavailable for my review. I am ordering a repeat EKG. Labs Result diagrams: 10/27/19 13:00 10/27/19 13:00 Labs: Laboratory Results - last 24 hr 10/27/19 10/27/19 10/27/19 13:00 13:00 13:00 WBC RBC Hgb Hct MCV MCH MCHC RDW Plt Count MPV Immature Gran % Neutrophils % Lymphocytes % Monocytes % Eosinophils % Basophils % Absolute Neutrophils Absolute Lymphocytes Absolute Monocytes Absolute Eosinophils Absolute Basophils PT INR APTT VBG pH VBG pCO2 VBG pO2 VBG HCO3 VBG Total CO2 VBG O2 Saturation VBG Base Excess Carboxyhemoglobin % Sodium 144 Potassium 3.6 Chloride 105 Carbon Dioxide 24.3 Anion Gap 14.7 H BUN 13 Creatinine 1.27 H Estimated GFR/1.73 m2 44.02 Glucose 218 H Lactate Calcium 9.1 Total Bilirubin 0.4 AST 16 ALT 21 Alkaline Phosphatase 169 H Ammonia < 10 L Creatine Kinase Troponin I < 0.05 NT-Pro-B Natriuret Pep Total Protein 7.9 Albumin 3.3 L Lipase 61 TSH Urine Color Urine Clarity Urine pH Ur Specific [place] Urine Protein Urine Ketones Urine Blood Urine Nitrite Urine Bilirubin Urine Urobilinogen Ur Leukocyte Esterase Urine Glucose Salicylates 2.8 Urine Opiates Screen Urine Methadone Screen Acetaminophen < 2 Ur Barbiturates Screen Ur Tricyclics Screen Ur Amphetamines Screen U Benzodiazepines Scrn Urine Cocaine Screen Ur THC Screen Ethyl Alcohol < 3.0 10/27/19 10/27/19 10/27/19 13:00 13:00 13:00 WBC RBC Hgb Hct MCV MCH MCHC RDW Plt Count MPV Immature Gran % Neutrophils % Lymphocytes % Monocytes % Eosinophils % Basophils % Absolute Neutrophils Absolute Lymphocytes Absolute Monocytes Absolute Eosinophils Absolute Basophils PT INR APTT VBG pH 7.30 L VBG pCO2 48 H VBG pO2 61 H VBG HCO3 24 VBG Total CO2 22 VBG O2 Saturation 87 H VBG Base Excess -2.9 Carboxyhemoglobin % Sodium Potassium Chloride Carbon Dioxide Anion Gap BUN Creatinine Estimated GFR/1.73 m2 Glucose Lactate 6.2 H* Calcium Total Bilirubin AST ALT Alkaline Phosphatase Ammonia Creatine Kinase Troponin I NT-Pro-B Natriuret Pep 296 Total Protein Albumin Lipase TSH 2.58 Urine Color Urine Clarity Urine pH Ur Specific [place] Urine Protein Urine Ketones Urine Blood Urine Nitrite Urine Bilirubin Urine Urobilinogen Ur Leukocyte Esterase Urine Glucose Salicylates Urine Opiates Screen Urine Methadone Screen Acetaminophen Ur Barbiturates Screen Ur Tricyclics Screen Ur Amphetamines Screen U Benzodiazepines Scrn Urine Cocaine Screen Ur THC Screen Ethyl Alcohol 10/27/19 10/27/19 10/27/19 13:00 13:00 13:00 WBC 12.77 H RBC 4.10 Hgb 11.4 L Hct 36.4 MCV 88.8 MCH 27.8 MCHC 31.3 L RDW 15.4 H Plt Count 236 MPV 10.7 Immature Gran % 0.5 Neutrophils % 85.4 Lymphocytes % 7.5 Monocytes % 6.3 Eosinophils % 0.1 Basophils % 0.2 Absolute Neutrophils 10.91 H Absolute Lymphocytes 0.96 L Absolute Monocytes 0.80 H Absolute Eosinophils 0.01 Absolute Basophils 0.03 PT 10.4 INR 1.0 APTT 25.7 VBG pH VBG pCO2 VBG pO2 VBG HCO3 VBG Total CO2 VBG O2 Saturation VBG Base Excess Carboxyhemoglobin % 1.7 Sodium Potassium Chloride Carbon Dioxide Anion Gap BUN Creatinine Estimated GFR/1.73 m2 Glucose Lactate Calcium Total Bilirubin AST ALT Alkaline Phosphatase Ammonia Creatine Kinase Troponin I NT-Pro-B Natriuret Pep Total Protein Albumin Lipase TSH Urine Color Urine Clarity Urine pH Ur Specific [place] Urine Protein Urine Ketones Urine Blood Urine Nitrite Urine Bilirubin Urine Urobilinogen Ur Leukocyte Esterase Urine Glucose Salicylates Urine Opiates Screen Urine Methadone Screen Acetaminophen Ur Barbiturates Screen Ur Tricyclics Screen Ur Amphetamines Screen U Benzodiazepines Scrn Urine Cocaine Screen Ur THC Screen Ethyl Alcohol 10/27/19 10/27/19 10/27/19 13:00 13:20 13:20 WBC RBC Hgb Hct MCV MCH MCHC RDW Plt Count MPV Immature Gran % Neutrophils % Lymphocytes % Monocytes % Eosinophils % Basophils % Absolute Neutrophils Absolute Lymphocytes Absolute Monocytes Absolute Eosinophils Absolute Basophils PT INR APTT VBG pH VBG pCO2 VBG pO2 VBG HCO3 VBG Total CO2 VBG O2 Saturation VBG Base Excess Carboxyhemoglobin % Sodium Potassium Chloride Carbon Dioxide Anion Gap BUN Creatinine Estimated GFR/1.73 m2 Glucose Lactate Calcium Total Bilirubin AST ALT Alkaline Phosphatase Ammonia Creatine Kinase 70 Troponin I NT-Pro-B Natriuret Pep Total Protein Albumin Lipase TSH Urine Color Yellow Urine Clarity Clear Urine pH 6.0 Ur Specific [place] 1.025 Urine Protein Negative Urine Ketones Negative Urine Blood Negative Urine Nitrite Negative Urine Bilirubin Negative Urine Urobilinogen 0.2 Ur Leukocyte Esterase Negative Urine Glucose Negative Salicylates Urine Opiates Screen Negative Urine Methadone Screen Negative Acetaminophen Ur Barbiturates Screen Negative Ur Tricyclics Screen Positive A Ur Amphetamines Screen Negative U Benzodiazepines Scrn Positive A Urine Cocaine Screen Negative Ur THC Screen Positive A Ethyl Alcohol Last Vital Signs Temp 37.3 C 10/27/19 12:43 Pulse 96 H 10/27/19 16:00 Resp 14 10/27/19 16:01 BP 127/72 10/27/19 16:00 Pulse Ox 95 10/27/19 16:01
[2019-10-27 16:25] LABS: HCO3 28 mmol/L (22-28); pCO2 50 mmHg (34-47); pH 7.35 (7.35-7.45); pO2 84 mmHg (83-108); sO2 95 % (94-98); tCO2 26 mmol/L (22-29)
[2019-10-27 16:29] LABS: FIO2 21 %; Site Left Radial
[2019-10-27 16:33] LABS: Lactate 2.5 mmol/L (0.6-1.4)
[2019-10-27 18:08] LABS: Procalcitonin < 0.1 ng/mL
[2019-10-27 18:11] LABS: Magnesium 1.9 mg/dL (1.8-2.4)
[2019-10-27] MEDS: Heparin 5,000 UNITS/ML VIAL 5000 UNITS SC (18:34)
[2019-10-27] MEDS: Normal Saline 1,000 ML 100 ML IV (18:45)
[2019-10-27 19:11] LABS: Lactate 1.2 mmol/L (0.6-1.4)
[2019-10-28] VITALS (31 sets, daily range): BP systolic 96–155; BP diastolic 57–107; PULSE 51–109; RESP 1–25; TEMP 36.7–37.5; O2SAT 88–97
[2019-10-28] MEDS: Normal Saline 1,000 ML 100 ML IV ×2 (04:22→13:54)
[2019-10-28] MEDS: Heparin 5,000 UNITS/ML VIAL 5000 UNITS SC ×3 (06:20→21:25)
[2019-10-28 07:02] LABS: Abs Immature Grans 0.06 k/cumm (0.0-0.09); Absolute Basophil Count 0.01 k/cumm (0.0-0.2); Absolute Eosinophil Count 0.08 k/cumm (0.0-0.7); Absolute Lymphocyte Count 1.58 k/cumm (1.2-3.4); Absolute Monocyte Count 0.85 k/cumm (0.11-0.7); Absolute Neutrophil Count 7.52 k/cumm (1.2-6.7); Basophils % 0.1; Eosinophils % 0.8; HCT 30.8 % (36.0-46.0); HGB 9.5 g/dL (12.0-15.5); Immature Grans % 0.6 %; Lymphocytes % 15.6; Mean Corp. HGB Concentration 30.8 g/dL (32.0-36.0); Mean Corpuscular Hemoglobin 27.7 pg (27.0-33.0); Mean Corpuscular Volume 89.8 fL (80-95); Mean Platelet Volume 10.8 fL (8.0-11.0); Monocytes % 8.4; Neutrophils % 74.5; Platelet Count 213 x1000/uL (130-400); RBC 3.43 m/cumm (4.00-5.20); RBC Distribution Width 15.6 % (11.7-14.6)
[2019-10-28 07:21] LABS: Anion Gap 7.6 mmol/L (3-11); BUN 12 mg/dL (7-18); CO2 27.4 mmol/L (21.0-32.0); CREATININE 1.06 mg/dL (0.55-1.02); Calcium 8.2 mg/dL (8.5-10.1); Chloride 110 mmol/L (98-107); Estimated GFR 54.23 (mL/min/1.73m2); Glucose 119 mg/dL (74-106); Magnesium 1.8 mg/dL (1.8-2.4); Potassium 3.7 mmol/L (3.5-5.1); Sodium 145 mmol/L (136-145)
[2019-10-28 07:31] LABS: Hemoglobin A1C 6.6 % (3.8-5.6)
[2019-10-28 08:23] LABS: Diff Comment RBC Morph Reviewed
[2019-10-28 08:24] LABS: Anisocytosis 1+; Hypochromasia 1+; Polychromasia Present
[2019-10-28] MEDS: Acetaminophen 650 MG SUPP PR (09:05)
[2019-10-28] MEDS: Normal Saline Flush 10 ML SYR IVP ×2 (09:06→12:32)
[2019-10-28] MEDS: Albuterol/Ipratropium 3 ML UPD VIAL UPD ×2 (09:06→12:32)
--- NOTE | 2019-10-28 11:04 | PGE_ITS ---
Date of Service Date of service: 10/28/19 Time of Service: 11:04 Assessment and Plan Assessment and plan (1) Toxic metabolic encephalopathy: Status: Acute Assessment and plan: due to overdose of clonazepam, quetiapine, and zolpidem. Markedly improved. No evidence for infection or [employer] pathology. Ok to start feeding after RUQ US. Consult mental health. Will likely need inpatient psychiatric hospitalization. (2) Overdose: Status: Acute Assessment and plan: Patient admits to intentional overdose of clonazepam, seroquel, ambien with the intent to kill herself. Per my conversation with Olga at [facility] [employer], the patient's anticholinergic and [employer] depression symptoms should indeed be resolving right now. She did recommend us monitoring her for tachycardia, urinary retention, constipation. Continue IVF. Mental health consulted. Repeat EKG. Continue cardiac monitoring. Will keep in ICU at this time. (3) COPD (chronic obstructive pulmonary disease): Status: Chronic Assessment and plan: Not in acute exacerbation. Provide prn nebs. (4) CAD (coronary artery disease): Status: Chronic Assessment and plan: with h/o NSTEMI. No evidence of ACS on this admission. (5) RADAMES on CPAP: Status: Chronic Assessment and plan: Written for CPAP at night. (6) Leucocytosis: Status: Resolved Assessment and plan: Reactive. No indication to start abx at this time. (7) Elevated lactic acid level: Status: Resolved Assessment and plan: Likely result of overdose/transient hypoxia/dehydration. Resolved. (8) Hyperglycemia: Status: Acute Assessment and plan: Does have DM based on A1C. Will require diabetes education. Not a candidate for metformin due to h/o lactic acidosis. (9) Depression: Status: Acute Assessment and plan: S/p suicide attempt. Mental health consulted (10) DVT prophylaxis: Status: Acute Assessment and plan: Heparin SC (11) Discharge planning issues: Status: Acute Assessment and plan: Full code. Keep in ICU. Critical Care Time 60 minutes. Subjective Subjective Interval history since last seen: Ms Matson is awake today and is able to tell what happened. She states that 2 days ago she took a bunch of clonopin (we are calculating 74 pills or 37 mg) and 28 of the 400 mg and 32 x 50 mg (a total of 11 grams) of seroquel. To me, she denies taking anything else not the way that she was prescribed it, but our calculations show she may have taken 25 mg of zolpidem as well. She did this intentionally in an attempt to kill herself because she just discovered that her boyfriend was cheating on her. Obviously, my antidepressant wasn't working. Trintellix or whatever. She reports RUQ pain x 2 weeks. Denies dizziness, chest pain, shortness of breath, nausea. Last BM 3 days ago, she states. In ventricular quadrogeminy at this time, asymptomatic. Exam Narrative Exam Narrative: General: Obese female, awake, able to tell her story, does still see somewhat sleepy. A&Ox2 Neurological: no focal deficits Psychiatric: anxious/depressed Skin: dry/intact HEENT: EOMI, dry MM, clear oropharynx, no submandibular or cervical lymphadenopathy, no goiter or JVD Cardiovascular: RRR, no m/r/g Lungs: CTAB Gastrointestinal: soft, tender in RUQ, nondistended Genitourinary: has a davis - clear yellow urine Extremities: trace edema B feet, no c/c. 1+ pedal pulses B Objective Objective Clinical Data: Abnormal lab results 10/27/19 10/27/19 10/27/19 Range/Units 13:00 13:00 13:00 WBC (4.4-10.8) k/cumm RBC (4.00-5.20) m/cumm Hgb (12.0-15.5) g/dL Hct (36.0-46.0) % MCHC (32.0-36.0) g/dL RDW (11.7-14.6) % Absolute Neutrophils (1.2-6.7) k/cumm Absolute Lymphocytes (1.2-3.4) k/cumm Absolute Monocytes (0.11-0.7) k/cumm ABG pCO2 (34-47) mmHg VBG pH (7.35-7.45) VBG pCO2 (34-47) mm/Hg VBG pO2 (28-44) mm/Hg VBG O2 Saturation (70-80) % Chloride (98-107) mmol/L Anion Gap 14.7 H (3-11) mmol/L Creatinine 1.27 H (0.55-1.02) mg/dL Glucose 218 H (74-106) mg/dL Hemoglobin A1c (3.8-5.6) % Lactate 6.2 H* (0.6-1.4) mmol/L Calcium (8.5-10.1) mg/dL Alkaline Phosphatase 169 H (46-116) U/L Ammonia < 10 L (11-32) umol/L C-Reactive Protein (0.0-0.3) mg/dL Albumin 3.3 L (3.4-5.0) g/dL Ur Tricyclics Screen (Negative) U Benzodiazepines Scrn (Negative) Ur THC Screen (Negative) 10/27/19 10/27/19 10/27/19 Range/Units 13:00 13:00 13:20 WBC 12.77 H (4.4-10.8) k/cumm RBC (4.00-5.20) m/cumm Hgb 11.4 L (12.0-15.5) g/dL Hct (36.0-46.0) % MCHC 31.3 L (32.0-36.0) g/dL RDW 15.4 H (11.7-14.6) % Absolute Neutrophils 10.91 H (1.2-6.7) k/cumm Absolute Lymphocytes 0.96 L (1.2-3.4) k/cumm Absolute Monocytes 0.80 H (0.11-0.7) k/cumm ABG pCO2 (34-47) mmHg VBG pH 7.30 L (7.35-7.45) VBG pCO2 48 H (34-47) mm/Hg VBG pO2 61 H (28-44) mm/Hg VBG O2 Saturation 87 H (70-80) % Chloride (98-107) mmol/L Anion Gap (3-11) mmol/L Creatinine (0.55-1.02) mg/dL Glucose (74-106) mg/dL Hemoglobin A1c (3.8-5.6) % Lactate (0.6-1.4) mmol/L Calcium (8.5-10.1) mg/dL Alkaline Phosphatase (46-116) U/L Ammonia (11-32) umol/L C-Reactive Protein (0.0-0.3) mg/dL Albumin (3.4-5.0) g/dL Ur Tricyclics Screen Positive A (Negative) U Benzodiazepines Scrn Positive A (Negative) Ur THC Screen Positive A (Negative) 10/27/19 10/27/19 10/27/19 Range/Units 16:13 16:13 16:22 WBC (4.4-10.8) k/cumm RBC (4.00-5.20) m/cumm Hgb (12.0-15.5) g/dL Hct (36.0-46.0) % MCHC (32.0-36.0) g/dL RDW (11.7-14.6) % Absolute Neutrophils (1.2-6.7) k/cumm Absolute Lymphocytes (1.2-3.4) k/cumm Absolute Monocytes (0.11-0.7) k/cumm ABG pCO2 50 H (34-47) mmHg VBG pH (7.35-7.45) VBG pCO2 (34-47) mm/Hg VBG pO2 (28-44) mm/Hg VBG O2 Saturation (70-80) % Chloride (98-107) mmol/L Anion Gap (3-11) mmol/L Creatinine (0.55-1.02) mg/dL Glucose (74-106) mg/dL Hemoglobin A1c (3.8-5.6) % Lactate 2.5 H* (0.6-1.4) mmol/L Calcium (8.5-10.1) mg/dL Alkaline Phosphatase (46-116) U/L Ammonia (11-32) umol/L C-Reactive Protein 9.10 H (0.0-0.3) mg/dL Albumin (3.4-5.0) g/dL Ur Tricyclics Screen (Negative) U Benzodiazepines Scrn (Negative) Ur THC Screen (Negative) 10/28/19 10/28/19 10/28/19 Range/Units 06:08 06:08 06:08 WBC (4.4-10.8) k/cumm RBC 3.43 L (4.00-5.20) m/cumm Hgb 9.5 L (12.0-15.5) g/dL Hct 30.8 L (36.0-46.0) % MCHC 30.8 L (32.0-36.0) g/dL RDW 15.6 H (11.7-14.6) % Absolute Neutrophils 7.52 H (1.2-6.7) k/cumm Absolute Lymphocytes (1.2-3.4) k/cumm Absolute Monocytes 0.85 H (0.11-0.7) k/cumm ABG pCO2 (34-47) mmHg VBG pH (7.35-7.45) VBG pCO2 (34-47) mm/Hg VBG pO2 (28-44) mm/Hg VBG O2 Saturation (70-80) % Chloride 110 H (98-107) mmol/L Anion Gap (3-11) mmol/L Creatinine 1.06 H (0.55-1.02) mg/dL Glucose 119 H D (74-106) mg/dL Hemoglobin A1c 6.6 H (3.8-5.6) % Lactate (0.6-1.4) mmol/L Calcium 8.2 L (8.5-10.1) mg/dL Alkaline Phosphatase (46-116) U/L Ammonia (11-32) umol/L C-Reactive Protein (0.0-0.3) mg/dL Albumin (3.4-5.0) g/dL Ur Tricyclics Screen (Negative) U Benzodiazepines Scrn (Negative) Ur THC Screen (Negative) Vital Signs Temperature 37.4 C 10/28/19 08:09 Temperature Source Tympanic 10/28/19 08:09 Pulse 99 H 10/28/19 06:01 Pulse 101 H 10/28/19 06:02 Respiratory Rate 20 10/28/19 06:02 Respiratory Effort 10/28/19 08:09 Respiratory Depth Normal 10/28/19 08:09 Respiratory Pattern Normal 10/28/19 00:09 Blood Pressure 140/80 10/28/19 06:01 Blood Pressure Mean 95 10/28/19 06:01 Blood Pressure Position Supine 10/28/19 04:08 Pulse Oximetry 94 L 10/28/19 06:02 Oxygen Delivery Method Nasal Cannula 10/28/19 08:09 Oxygen Flow Rate 1 10/28/19 04:08 Pain Level 6 10/28/19 08:09 Intake & Output 10/27/19 10/27/19 10/28/19 11:59 23:59 11:59 Intake Total 1000 / 1000 961.667 / 961.667 Output Total 675 / 675 600 / 600 Balance 325 / 325 361.667 / 361.667 Weight 123.8 kg 124.7 kg Intake: IV 1000 / 1000 961.667 / 961.667 Output: Urine 675 / 675 600 / 600 Other: Urine Color Yellow Light Dian Straw Urine Appearance Clear Clear Comment Davis cath in place draining clear light dian urine. davis cath in place and patent. Laboratory Results WBC 10.10 k/cumm (4.4-10.8) 10/28/19 06:08 RBC 3.43 m/cumm (4.00-5.20) L 10/28/19 06:08 Hgb 9.5 g/dL (12.0-15.5) L 10/28/19 06:08 Hct 30.8 % (36.0-46.0) L 10/28/19 06:08 MCV 89.8 fL (80-95) 10/28/19 06:08 MCH 27.7 pg (27.0-33.0) 10/28/19 06:08 MCHC 30.8 g/dL (32.0-36.0) L 10/28/19 06:08 RDW 15.6 % (11.7-14.6) H 10/28/19 06:08 Plt Count 213 x1000/uL (130-400) 10/28/19 06:08 MPV 10.8 fL (8.0-11.0) 10/28/19 06:08 Immature Gran % 0.6 % 10/28/19 06:08 Neutrophils % 74.5 10/28/19 06:08 Lymphocytes % 15.6 10/28/19 06:08 Monocytes % 8.4 10/28/19 06:08 Eosinophils % 0.8 10/28/19 06:08 Basophils % 0.1 10/28/19 06:08 Absolute Neutrophils 7.52 k/cumm (1.2-6.7) H 10/28/19 06:08 Absolute Lymphocytes 1.58 k/cumm (1.2-3.4) 10/28/19 06:08 Absolute Monocytes 0.85 k/cumm (0.11-0.7) H 10/28/19 06:08 Absolute Eosinophils 0.08 k/cumm (0.0-0.7) 10/28/19 06:08 Absolute Basophils 0.01 k/cumm (0.0-0.2) 10/28/19 06:08 Differential Comment Rbc morph reviewed 10/28/19 06:08 RBC Morphology See below 10/28/19 06:08 Polychromasia Present 10/28/19 06:08 Hypochromasia 1+ 10/28/19 06:08 Anisocytosis 1+ 10/28/19 06:08 PT 10.4 sec (9.3-11.0) 10/27/19 13:00 INR 1.0 (0.9-1.1) 10/27/19 13:00 APTT 25.7 sec (21.0-31.4) 10/27/19 13:00 ABG Sample Site Left radial 10/27/19 16:22 ABG pH 7.35 (7.35-7.45) 10/27/19 16:22 ABG pCO2 50 mmHg (34-47) H 10/27/19 16:22 ABG pO2 84 mmHg (83-108) 10/27/19 16:22 ABG HCO3 28 mmol/L (22-28) 10/27/19 16:22 ABG Total CO2 26 mmol/L (22-29) 10/27/19 16:22 ABG O2 Saturation 95 % (94-98) 10/27/19 16:22 ABG Base Excess 2.0 mmol/L (-3-3) 10/27/19 16:22 VBG pH 7.30 (7.35-7.45) L 10/27/19 13:00 VBG pCO2 48 mm/Hg (34-47) H 10/27/19 13:00 VBG pO2 61 mm/Hg (28-44) H 10/27/19 13:00 VBG HCO3 24 mmol/L (22-28) 10/27/19 13:00 VBG Total CO2 22 mmol/L (22-29) 10/27/19 13:00 VBG O2 Saturation 87 % (70-80) H 10/27/19 13:00 VBG Base Excess -2.9 mmol/L (-3-3) 10/27/19 13:00 Carboxyhemoglobin % 1.7 % 10/27/19 13:00 FiO2 21 % 10/27/19 16:22 Sodium 145 mmol/L (136-145) 10/28/19 06:08 Potassium 3.7 mmol/L (3.5-5.1) 10/28/19 06:08 Chloride 110 mmol/L (98-107) H 10/28/19 06:08 Carbon Dioxide 27.4 mmol/L (21.0-32.0) 10/28/19 06:08 Anion Gap 7.6 mmol/L (3-11) 10/28/19 06:08 BUN 12 mg/dL (7-18) 10/28/19 06:08 Creatinine 1.06 mg/dL (0.55-1.02) H 10/28/19 06:08 Estimated GFR/1.73 m2 54.23 (mL/min/1.73m2) 10/28/19 06:08 Glucose 119 mg/dL (74-106) H D 10/28/19 06:08 Hemoglobin A1c 6.6 % (3.8-5.6) H 10/28/19 06:08 Lactate 1.2 mmol/L (0.6-1.4) 10/27/19 19:02 Calcium 8.2 mg/dL (8.5-10.1) L 10/28/19 06:08 Magnesium 1.8 mg/dL (1.8-2.4) 10/28/19 06:08 Total Bilirubin 0.4 mg/dL (0.2-1.0) 10/27/19 13:00 AST 16 U/L (15-37) 10/27/19 13:00 ALT 21 U/L (14-59) 10/27/19 13:00 Alkaline Phosphatase 169 U/L (46-116) H 10/27/19 13:00 Ammonia < 10 umol/L (11-32) L 10/27/19 13:00 Creatine Kinase 70 U/L (26-192) 10/27/19 13:00 Troponin I < 0.05 ng/Ml (<0.06) 10/27/19 13:00 C-Reactive Protein 9.10 mg/dL (0.0-0.3) H 10/27/19 16:13 NT-Pro-B Natriuret Pep 296 pg/mL (<300) 10/27/19 13:00 Total Protein 7.9 g/dL (6.4-8.2) 10/27/19 13:00 Albumin 3.3 g/dL (3.4-5.0) L 10/27/19 13:00 Lipase 61 U/L (73-393) 10/27/19 13:00 Procalcitonin < 0.1 ng/mL 10/27/19 16:13 TSH 2.58 uIU/mL (0.36-3.74) 10/27/19 13:00 Urine Color Yellow (Yellow) 10/27/19 13:20 Urine Clarity Clear (Clear) 10/27/19 13:20 Urine pH 6.0 (5-8) 10/27/19 13:20 Ur Specific [place] 1.025 (1.005-1.025) 10/27/19 13:20 Urine Protein Negative mg/dL (Negative) 10/27/19 13:20 Urine Ketones Negative mg/dL (Negative) 10/27/19 13:20 Urine Blood Negative (Negative) 10/27/19 13:20 Urine Nitrite Negative (Negative) 10/27/19 13:20 Urine Bilirubin Negative (Negative) 10/27/19 13:20 Urine Urobilinogen 0.2 EU/dL (Up TO 0.2) 10/27/19 13:20 Ur Leukocyte Esterase Negative (Negative) 10/27/19 13:20 Urine Glucose Negative mg/dL (Negative) 10/27/19 13:20 Salicylates 2.8 mg/dL (2.8-20.0) 10/27/19 13:00 Urine Opiates Screen Negative (Negative) 10/27/19 13:20 Urine Methadone Screen Negative (Negative) 10/27/19 13:20 Acetaminophen < 2 ug/mL (10-30) 10/27/19 13:00 Ur Barbiturates Screen Negative (Negative) 10/27/19 13:20 Ur Tricyclics Screen Positive (Negative) A 10/27/19 13:20 Ur Amphetamines Screen Negative (Negative) 10/27/19 13:20 U Benzodiazepines Scrn Positive (Negative) A 10/27/19 13:20 Urine Cocaine Screen Negative (Negative) 10/27/19 13:20 Ur THC Screen Positive (Negative) A 03/18/20 13:20 Ethyl Alcohol < 3.0 mg/dL (<3) 10/27/19 13:00 EKG pending
[2019-10-28] MEDS: Nystatin POWDER 60 GM JAR TP ×2 (11:54→21:26)
--- NOTE | 2019-10-28 11:54 | PHA.ADMREV ---
Pharmacy Clinical Review - Admission Clinical Review (Last Reviewed 10/11/19 @ 11:53 by Na Cannon) Hyperglycemia (Acute) Discharge planning issues (Acute) DVT prophylaxis (Acute) Overdose (Acute) Toxic metabolic encephalopathy (Acute) Depression (Acute 03/02/13) sertraline [From Zoloft] Allergy (Severe, Verified 10/27/19 12:49) Agitation lisinopril Allergy (Intermediate, Unverified 10/27/19 12:49) lips swell Weight 124.7 kg ENCEPHALOPATHY, SUSPECTED OVERDOSE - Renal Dosing Renal Dosing: BUN 12 mg/dL (7-18) 10/28/19 06:08 Creatinine 1.06 mg/dL (0.55-1.02) H 10/28/19 06:08 Medications needing adjustments: Reviewed (No present inpatient med adjustments) - Anticoagulation Anticoagulation: Hgb 9.5 g/dL (12.0-15.5) L 10/28/19 06:08 Hct 30.8 % (36.0-46.0) L 10/28/19 06:08 Plt Count 213 x1000/uL (130-400) 10/28/19 06:08 INR 1.0 (0.9-1.1) 10/27/19 13:00 Creatinine 1.06 mg/dL (0.55-1.02) H 10/28/19 06:08 DVT Prohphylaxis: Reviewed Medications: Heparin Therapeutic Anticoagulation: N/A - Opiate Usage Evaluate Pain Scale/Pains Meds: Reviewed (pain 6/10...pt very obtunded, no pain meds, suspected overdose) Scheduled Bowel Reg ordered if on Opiates?: Yes (Senna, Docusate) - Relevant Labs Sodium 145 mmol/L (136-145) 10/28/19 06:08 Potassium 3.7 mmol/L (3.5-5.1) 10/28/19 06:08 Chloride 110 mmol/L (98-107) H 10/28/19 06:08 Magnesium 1.8 mg/dL (1.8-2.4) 10/28/19 06:08 C-Reactive Protein 9.10 mg/dL (0.0-0.3) H 10/27/19 16:13 Electrolytes, C-Reactive P, ESR: Reviewed (Alk Phos elevated 169, Probnp 296, TOXICOLOGY: Positive for Tricyclics, Benzos, THC, Lactate level was elevated and has improved) - Antimicrobial Stewardship Antibiotic appropriateness: N/A Surgical Abx d/c within 24 hr: N/A Culture review/Resistance: Reviewed (Flu negative, blood and urine pending) - DM Control DM Control: Glucose 119 mg/dL (74-106) H D 10/28/19 06:08 Hemoglobin A1c 6.6 % (3.8-5.6) H 10/28/19 06:08 Finger Stick Blood Glucose 132 Finger Stick Blood Glucose 132 Insulin Dosing: Reviewed (Novolog scale, BG 119) - Heart Failure/OR Heart Failure/OR: Troponin I < 0.05 ng/Ml (<0.06) 10/27/19 13:00 NT-Pro-B Natriuret Pep 296 pg/mL (<300) 10/27/19 13:00 EF%, KIRILL's, B-Blockers, Diuretics: N/A - BP Control BP Control: Blood Pressure [Right Arm] 96/57 Blood Pressure [Left Arm] 129/68 Blood Pressure 135/72 Blood Pressure 155/107 Blood Pressure 136/67 Blood Pressure 140/80 Blood Pressure 129/68 Blood Pressure 130/84 If elevated: N/A - QTc Review If Elevated: Reviewed (QTC 474 (Seroquel possible overdose, Trintellix on home med also, Symbicort mdi)) - IV to PO Switch IV Medications: N/A - Home Meds Home Med List reviewed: Reviewed (some QT prolonging meds, most home meds NOT entered at this time, suspected intentional overdose, patient drowsy, not speaking clearly & confused) - Comments Comments/Follow Ups: Poison control being contacted by MD, will need Psych eval, watch for restart of some home meds. Family brought in a very large bag/tote of meds from home which was last being evaluated by MD on ICU..not store in pharmacy at this time. Uses CPAP at home-may see if her machine can be brought in. MD progress note states patient was able to confess of intentional overdose of Clonazepam and Seroquel
--- NOTE | 2019-10-28 12:01 | INITIAL_ITS ---
- If Service Date Differs Date of service: 10/28/19 Time of Service: 12:01 Care Management Initial Assess REASON FOR HOSPITALIZATION:: Encephalopathy, suspected overdose. PAST MEDICAL HISTORY/PAST SURGICAL HISTORY:: Medical/Surgical History: Hyperglycemia, elevated lactic acid level, leucocytosis, DVT prophylaxis, RADAMES on CPAP, coronary artery disease, COPD, overdose, toxic metabolic encephalopathy, mixed stress and urge urinary incontinence, abnormal uterine bleeding, anemia, depression, history of acute myocardial infarction, hypertension, Intrinsic sphincter deficiency (ISD), menorrhagia, migraine with aura, obesity, and urinary incontinence, mixed. PREVIOUS FUNCTIONAL STATUS/SOCIAL/FAMILY SUPPORTS:: Na lives alone in an apartment in [facility]. 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 She reports she has two daughters and one son and names her daughters as sources of family supports. She is , shares the divorce was contentious, and states her relationship with her son is strained as he sided with his father when she and her split up. Na reports she is independent at baseline. She drives, cooks, cleans, goes to the gym with one of her daughters, and walks around [facility] with her landlord. CURRENT FUNCTIONAL STATUS:: Na is lying in bed when CM meets with her. She is pleasant and easily engages in conversation. Her speech is clear but she sometimes forgets what she is saying and her thoughts are somewhat tangential. She readily admits taking an overdose of medications yesterday in a suicide attempt. CM will continue to follow. ADVANCE DIRECTIVES:: None on file. Has patient been provided with information about the portal?: No Did the patient sign up for the portal?: No CODE STATUS:: Full Code INSURANCE COVERAGE / FINANCIAL ISSUES:: BS and Medicaid. CURRENT HOME/COMMUNITY SERVICES/EQUIPMENT:: Na has a CPAP at home. She denies any other medical equipment. She sees Maddy Bowers aprn at [facility] for medication management of her psych meds. She currently does not have a therapist and denies having any other community services. PRIMARY CARE PHYSICIAN:: Coty Davis MD ([facility]). POTENTIAL DISCHARGE NEEDS:: Follow-up with PCP and discharge plan of care. Na will likely benefit from mental health counseling as well. PATIENT/FAMILY EDUCATION NEEDS:: Discharge plan, limitations, follow-up plan of care, including [facility]. ANTICIPATED BARRIERS TO DISCHARGE:: No barriers anticipated at this time. TRANSPORTATION:: To be determined depending on outcome of mental health evaluation. PLAN:: A [facility] mental health consult has been ordered. Plan remains to be determined at this time and will depend on the outcome of the mental health evaluation. CM continues to follow.
[2019-10-28] MEDS: Senna TAB 1 TAB PO ×2 (12:33→21:26)
[2019-10-28] MEDS: Docusate Sodium 100 MG CAP PO ×2 (12:33→21:26)
--- NOTE | 2019-10-28 13:31 | DI.US_ITS ---
EXAM: US ABDOMEN LIMITED CLINICAL HISTORY: RUQ pain TECHNIQUE: Ultrasound performed using standard protocol. FINDINGS: Abdominal ultrasound was performed utilizing right upper quadrant protocol. Liver is incompletely vis ualized and appears enlarged and heterogeneous. Increased echogenicity of hepatic parenchyma presuma brian represents hepatic steatosis. Note is made of cholelithiasis. There is a negative sonographic Walton's sign and the gallbladder wa ll is of normal thickness. No pericholecystic fluid collection seen. No biliary dilatation seen. The pancreas is unremarkable in appearance as visualized although incompletely seen. Right kidney is unremarkable in appearance with no evidence of hydronephrosis, nephrolithiasis, or re nal mass. Abdominal aorta and IVC are of normal diameter. IMPRESSION: Cholelithiasis without evidence of acute cholecystitis. Hepatomegaly and probable hepatic steatosis. Liver incompletely visualized. DATA REPOSITORY:
--- NOTE | 2019-10-28 13:39 | W.INDIABCONS ---
Date of service: 10/28/19 Time of Service: 13:39 Diabetes Inpatient Consult DESCRIPTION/ASSESSMENT: Appreciate diabetes consult for Na Matson who is 53 and newly diagnosed with type 2 diabetes with A1c 6.6. She is hospitalized with Toxic Metabolic encephalopathy. BMI 53 Here diabetes is managed with insulin correction only and she has not needed this secondary to blood sugars less than 132. H&P indicate she is not alert to engage in conversation. Given that she just meets diagnostic criteria and does not need medication intervention at this time, in intervention suggested at this time. PLAN: Will follow blood sugars and her ability to engage in conversation. Time Spent in Nutritional Counseling and Treatment: 0 minutes face to face
[2019-10-28] MEDS: Acetaminophen 325 MG TAB 650 MG PO (13:49)
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
--- NOTE | 2019-10-28 17:30 | CMSP_ITS ---
- If Service Date Differs Date of service: 10/28/19 Time of Service: 17:30 Care Management Safety Plan Chief Complaint: Na was admitted to the ICU for toxic metabolic encephalopathy r/t to admitted intentional overdose of clonazepam, quetiapine, and zolpidem. Na has not been evaluated by [facility] due to medical clearance, [facility] has contacted [facility] and sent referral to [facility] for review. Na will be evaluated by crisis when she is cleared. [facility] has communicated plan with MD, asbestos removal supervisor RN and ENROLLMENT ELIGIBILITY REPRESENTATIVE. CM will respond to ED to assess patient after patient has been medically cleared and assessed by screener. If screener deems patient meets criteria for psychiatric stabilization CM will facilitate interdepartmental huddle with [facility] screener for safety planning considerations and meet with patient to review [facility] policy and safety plan, establish individual wishes for treatment and maintain patient rights. In the interim; please note safety plan below to guide patient care while awaiting medical clearance and Crisis evaluation. SAFETY PLAN: 1. Will remain on suicide precautions and in paper clothes. 2. Will remain in room under direct supervision of one-on-one staff at all times provided by SERENA, WAYBILL CLERK timekeeping supervisor. 3. May have paper cups, plates, finger foods as well as a cardboard spoon with which to eat meals. 4. Follow [facility] Management of the Admitted Behavioral Health Patient policy. 5. Comfort wipe bath system only. 6. No personal belongings 7. Visitors at the discretion of primary nurse 8. Phone at the discretion of staff. 9. Due to VOLUNTARY status, if patient wishes to leave [facility], the [facility] die try out worker must be contacted to re-evaluate patient prior to patient exiting the building. If deemed appropriate for inpatient psychiatric care, safety plan will be established with patient, and care team, to adhere to patient goals, identify restrictions based on behavioral status, address nutrition, and determine allowed personal belongings, tools for hygiene and personal care. As well plan will determine level of activity including ambulation, level of supervision, visitors, and determine privileges based on level of acuity, behaviors and level of engagement by patient.
[2019-10-29] VITALS (17 sets, daily range): BP systolic 125–176; BP diastolic 83–109; PULSE 83–97; RESP 1–40; TEMP 36.8–37.1; O2SAT 93–99
[2019-10-29] MEDS: Normal Saline 1,000 ML 100 ML IV ×2 (00:06→10:26)
[2019-10-29 07:09] LABS: Abs Immature Grans 0.13 k/cumm (0.0-0.09); Absolute Basophil Count 0.03 k/cumm (0.0-0.2); Absolute Eosinophil Count 0.17 k/cumm (0.0-0.7); Absolute Lymphocyte Count 2.01 k/cumm (1.2-3.4); Absolute Monocyte Count 0.81 k/cumm (0.11-0.7); Absolute Neutrophil Count 5.09 k/cumm (1.2-6.7); Basophils % 0.4; Eosinophils % 2.1; HCT 30.4 % (36.0-46.0); HGB 9.5 g/dL (12.0-15.5); Immature Grans % 1.6 %; Lymphocytes % 24.4; Mean Corp. HGB Concentration 31.3 g/dL (32.0-36.0); Mean Corpuscular Hemoglobin 27.8 pg (27.0-33.0); Mean Corpuscular Volume 88.9 fL (80-95); Mean Platelet Volume 10.3 fL (8.0-11.0); Monocytes % 9.8; Neutrophils % 61.7; Platelet Count 227 x1000/uL (130-400); RBC 3.42 m/cumm (4.00-5.20)
[2019-10-29 07:21] LABS: Anion Gap 8.6 mmol/L (3-11); BUN 10 mg/dL (7-18); CO2 27.4 mmol/L (21.0-32.0); CREATININE 0.95 mg/dL (0.55-1.02); Calcium 8.5 mg/dL (8.5-10.1); Chloride 105 mmol/L (98-107); Glucose 108 mg/dL (74-106); Magnesium 1.8 mg/dL (1.8-2.4); Potassium 3.4 mmol/L (3.5-5.1); Sodium 141 mmol/L (136-145)
[2019-10-29] MEDS: Docusate Sodium 100 MG CAP PO (07:55)
[2019-10-29] MEDS: Heparin 5,000 UNITS/ML VIAL 5000 UNITS SC (07:56)
[2019-10-29] MEDS: Senna TAB 1 TAB PO (07:56)
[2019-10-29] MEDS: Albuterol/Ipratropium 3 ML UPD VIAL UPD ×2 (07:56→12:50)
[2019-10-29] MEDS: Potassium Chloride 20 MEQ TABCR 40 MEQ PO (08:46)
[2019-10-29] MEDS: Nystatin POWDER 60 GM JAR TP ×2 (09:53→13:25)
[2019-10-29] MEDS: Budesonide/Formoterol 160/4.5 6 GM 60 PUFF INH IH (09:57)
--- NOTE | 2019-10-29 12:14 | PT.INTREAT ---
PT Notes Visit Reasons: ENCEPHALOPATHY, SUSPECTED OVERDOSE Inpatient Physical Therapy Treatment Note [facility] Date: 10/29/2019 PRECAUTIONS: Standard SUBJECTIVE: Na states that she is feeling better today. Her foot pain remains present, although less severe. She describes a sensation of numbness in her toes. OBJECTIVE: BED MOBILITY/TRANSFERS Rolling L/R: Supervision Supine-sit: Supervision with HOB at 30 degrees Sit-stand: CGA Stand-sit: CGA GAIT Assistive Device: FW W Weight bearing: WBAT Assist: Supervision Distance: 10 feet Deviation: Patient additionally completes lateral stepping with upper extremity support to FW W, without increase in foot pain THEREX: Patient was instructed in open and close chain strengthening activities. Tolerated addition of standing marching and FW W, in addition to both seated and supine exercises. See flow sheet for full program. Palpation: Patient has continued tenderness to palpation throughout the plantar fascia left greater than right. She has significant nonpitting edema throughout bilateral feet. Manual therapy: Patient received gentle soft tissue mobilization throughout the plantar fascia, followed by mobilization between the metatarsals, bilaterally. This was followed by sustained stretching to the plantar fascia and to bilateral calves prior to ambulation. Balance: Static sitting: Good Dynamic sitting: Good Static standing: Fair Dynamic standing: Fair ASSESSMENT: Significant improvements in mobility today. Patient was able to initiate ambulation with use of FW W, although continues to be primarily limited by bilateral foot pain. PLAN: Continue progressing strengthening and cardiovascular activity as patient tolerates TREATMENT CODE/TIME: 40 minutes (05738, [id number] 0?2) Oksana Parkinson, PT, DPT [facility]
[2019-10-29] MEDS: Bisacodyl 5 MG TABEC PO (12:42)
--- NOTE | 2019-10-29 12:45 | W.NUTCONSULT ---
Date of service: 10/29/19 Time of Service: 12:45 Nutritional Consult ASSESSMENT: 53 year old female admitted wt overdose of sedative or hypnotic, hyperglycemia, elevated lactic acid level, attempted suicide. Labs include elevated blood sugars, CDE provided Dm consult. BMI indicates morbid obesity. Diet advanced today at lunch to Diabetic meal plan with > 50% meal completion. Not considered at nutritional risk at this time. MONITORING AND EVALUATION: weight, po intake, labs Time Spent in Nutritional Counseling and Treatment: 5 min spent face to face
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
--- NOTE | 2019-10-29 14:10 | DSE_ITS ---
Date of service: 10/29/19 Time of Service: 14:10 DS: Diagnosis Discharge Diagnosis (1) Overdose: Status: Acute Asessment and Plan: intentional, in a suicide attempt, by taking clonazepam and seroquel (2) Toxic metabolic encephalopathy: Status: Acute (3) COPD (chronic obstructive pulmonary disease): Status: Chronic Asessment and Plan: not in acute exacerbation (4) CAD (coronary artery disease): Status: Chronic Asessment and Plan: no evidence of ACS (5) RADAMES on CPAP: Status: Chronic (6) Leucocytosis: Status: Resolved Asessment and Plan: reactive, no evidence of infection (7) Elevated lactic acid level: Status: Resolved (8) Hyperglycemia: Status: Acute (9) Depression: Status: Acute (10) Newly diagnosed diabetes: Status: Acute (11) Morbid obesity with BMI of 50.0-59.9, adult: Status: Acute Discharge Plan Disposition Patient Disposition: HOME Condition: Stable Discharge Details Chief Complaint: GenMedical Clinical Impression: Overdose of sedative or hypnotic, Altered mental status Reason For Visit: ENCEPHALOPATHY, SUSPECTED OVERDOSE Admit Date/Time: 10/27/19 15:34 Admit Provider: Fatimah Sheppard Attending Provider: Fatimah Sheppard Primary Care Provider: Monty Gibbs ED Provider: Sam Nash Hospital Course Hospital Course: Ms Ramos is a 53 year old female with PMHx of depression with h/o prior suicide attempt as well as h/o CAD, COPD, not on oxygen, and RADAMES on CPAP at home, who was admitted to [facility] ICU on 10/27/2019 after being found wedged between her bed and the wall, lethargic, having attempted to commit suicide by intentional overdose on clonazepam and seroquel. The patient's mental status got progressively better due to her hospitalization, and Poison Control did not recommend any further interventions other than IVF and monitoring cardiac and mental status. There was no evidence of QT prolongation or QRS widening on her cardiac monitoring. The patient's mental status is normal today. She was evaluated by mental health to help determine whether she would require inpatient psychiatric hospitalization. While this note is not available for my review, the patient was in fact cleared to go home with a safety plan in place and psychiatry follow up on 11/01/2019. She is being discharged home today with 2 days worth of clonazepam and her seroquel prescription is discontinued. She was diagnosed with diabetes on this admission. She is being discharged on januvia (had elevated lactate on admission.) She will need to follow up with her PCP in regards to further management of this. She is medically stable for discharge home today. Care for patient as well as completion of her discharge summary on day of discharge took 45 minutes. Home Meds and New Rx's Prescriptions: New Januvia 100 mg tablet 100 mg PO DAILY Qty: 30 RF: 0 Continued furosemide 20 mg tablet 10 mg PO DAILY RF: 0 potassium chloride 20 mEq tablet extended release 20 meq PO BID RF: 0 Myrbetriq 50 mg tablet extended release 24 hr 50 mg PO DAILY Qty: 90 RF: 3 cholecalciferol (vitamin D3) 1,000 UNIT tablet 1,000 unit PO HS RF: 0 Vyvanse 70 MG capsule 70 mg PO QAM RF: 0 aspirin 81 MG tablet,delayed release (DR/EC) 81 mg PO DAILY RF: 0 omeprazole 20 MG capsule,delayed release(DR/EC) 20 mg PO DAILY RF: 0 amlodipine 10 MG tablet 10 mg PO DAILY RF: 0 nitroglycerin [Nitrostat] 0.4 MG tablet, sublingual 0.4 mg Sublingual DIRECTED PRNRF: 0 fluticasone propion-salmeterol [Advair Diskus] 1 EACH blister with device 1 puff Inhalation BID RF: 0 albuterol sulfate [Proventil HFA] 6.7 GM HFA aerosol inhaler 1 - 2 puff Inhalation Q4H PRN RF: 0 Fish Oil 1 EACH capsule 1 ea PO DAILY RF: 0 Probiotic 1 EACH capsule 1 ea PO DAILY RF: 0 atorvastatin [Lipitor] 40 MG tablet 40 mg PO HS RF: 0 Spiriva with HandiHaler 18 MCG capsule, w/inhalation device 2 puff Inhalation DAILY RF: 0 acetaminophen [Tylenol Arthritis Pain] 650 mg Tablet Extended Release 650 mg PO Q8H RF: 0 [employer] Mature 8 mg iron-400 mcg-300 mcg Tablet 1 tab PO DAILY RF: 0 pregabalin 100 mg Capsule 100 mg PO TID RF: 0 propranolol 40 mg Tablet 40 mg PO BID RF: 0 magnesium L-lactate 84 mg tablet extended release 84 mg PO BID RF: 0 Viibryd 20 mg tablet 20 mg PO DAILY RF: 0 clonazepam 0.5 mg tablet 0.5 mg PO TID Qty: 6 RF: 0 Discontinued zolpidem [Ambien] 5 mg tablet 5 mg PO QHS PRNRF: 0 quetiapine [Seroquel] 400 mg tablet 800 mg PO QHS RF: 0 quetiapine 50 mg tablet extended release 24 hr 100 mg PO HS RF: 0 Discharge Instructions Instructions: Sitagliptin (By mouth), Depression (DC), Diabetes Mellitus Type 2 in Adults (GEN), Suicide Prevention for Adults (DC) Additional Instructions: Return to the hospital with any fever, bleeding, chest pain, shortness of breath. Follow a diabetic diet. Activity:: Activity as Tolerated Equipment/Supplies:: No Equipment Needed Diet:: Carb Counting Discharge Orders Discharge Orders: Discharge Order (Routine); Ordered 10/29/19 Ordered By: Fatimah Sheppard DS: Summary Status at Discharge Functional status at discharge: independent ambulation Overall status at discharge: patient is back to baseline Mental Status: mental status grossly normal Speech and Movement: speech and movement normal Mood: congruent mood Affect: normal affect Exam Narrative Exam Narrative: General: Obese female, A&Ox3, no acute distress, pleasant, cooperative Psychiatric: pleasant, cooperative, appropriate Skin: dry/intact HEENT: EOMI, MMM Cardiovascular: RRR, no m/r/g Lungs: CTAB Gastrointestinal: soft, nontender, nondistended Extremities: trace edema B feet, no c/c. 1+ pedal pulses B Psych Mental Status: mental status grossly normal Speech and Movement: speech and movement normal Mood: congruent mood Affect: normal affect DS: Data Vitals/I&O Vitals and I&O: Vital Signs Temperature 37.1 C 10/29/19 08:42 Temperature Source Tympanic 10/29/19 08:42 Pulse 94 H 10/29/19 13:14 Pulse 96 H 10/29/19 13:14 Respiratory Rate 16 10/29/19 13:02 Respiratory Effort Non-Labored 10/29/19 08:42 Respiratory Depth Normal 10/29/19 08:42 Respiratory Pattern Normal 10/29/19 08:42 Blood Pressure 164/109 H 10/29/19 13:14 Blood Pressure Mean 122 10/29/19 13:14 Blood Pressure Position Supine 10/29/19 08:42 Pulse Oximetry 93 L 10/29/19 13:14 Oxygen Delivery Method Room Air 10/29/19 12:50 Oxygen Flow Rate 0 10/29/19 12:50 Fraction of Inspired Oxygen (FIO2) 40 10/29/19 01:00 Pain Level 0 10/29/19 03:30 Intake & Output 10/28/19 10/29/19 10/29/19 23:59 11:59 23:59 Intake Total 2903.333 / 3865.000 1709 300 / 2010 Output Total 850 / 1450 3775 / 3775 Balance 2053.333 / 2415.000 -2065 / -1765 300 / -1765 Intake: IV 1953.333 / 2915.000 1000 / 1300 300 / 1300 Oral 950 / 950 710 / 710 Output: Urine 850 / 1450 3775 / 3775 Other: Urine Color Straw Yellow Urine Appearance Clear Clear Comment Bryan intact,draining clear yellow urine. Bryan intact and draining clear yellow urine. Data Completed and Pending Completed studies during hospitalization [Text1]: CT head: No evidence of acute intracranial process. CXR: No definite acute process. CT lumbar spine: No evidence of acute process. If there is a clinical suspicion of epidural abscess, additional evaluation with MRI would be recommended. XR L knee: Three views of the knee were obtained. There is a total knee joint replacement in position. Components appear well seated. No other significant bony abnormality seen. XR L hip/pelvis: Three views of the left hip and pelvis were obtained. There are bilateral hip replacements in position. The components appear well seated. No other significant bony abnormality seen. US RUQ: Cholelithiasis without evidence of acute cholecystitis. Hepatomegaly and probable hepatic steatosis. Liver incompletely visualized. Labs on day of discharge: Labs from last 24 hours 10/29/19 10/29/19 06:50 06:50 WBC 8.24 RBC 3.42 L Hgb 9.5 L Hct 30.4 L MCV 88.9 MCH 27.8 MCHC 31.3 L RDW 15.0 H Plt Count 227 MPV 10.3 Immature Gran % 1.6 Neutrophils % 61.7 Lymphocytes % 24.4 Monocytes % 9.8 Eosinophils % 2.1 Basophils % 0.4 Absolute Neutrophils 5.09 Absolute Lymphocytes 2.01 Absolute Monocytes 0.81 H Absolute Eosinophils 0.17 Absolute Basophils 0.03 Sodium 141 Potassium 3.4 L Chloride 105 Carbon Dioxide 27.4 Anion Gap 8.6 BUN 10 Creatinine 0.95 Estimated GFR/1.73 m2 >= 60.00 Glucose 108 H Calcium 8.5 Magnesium 1.8 Preliminary micro results at discharge 10/27/19 13:34 Blood Culture - Preliminary Blood NO GROWTH 24 HOURS 10/27/19 13:00 Blood Culture - Preliminary Blood NO GROWTH 24 HOURS [facility] Social History (Updated 10/11/19 @ 11:54 by Na Cannon) Smoking/Tobacco Use Status: Never Alcohol Intake: never Drug use: Daily Substance use type: marijuana Details: marijuana: half joint Household members: none Housing: apartment Do you feel safe at home: Yes Do you feel safe in your relationship?: Yes
--- NOTE | 2019-10-29 16:27 | W.DIABETESNO ---
Date of service: 10/29/19 Time of Service: 16:27 Diabetes Note NOTE: Visited Na prior to discharge to review her diabetes status. Reviewed A1c and diagnostic criteria for diabetes. Blood sugars here all at goal (less than 127mg/dl this visit). Reviewed diabetes food guide with sugar intake as well as weight loss and discussed physical activity as the Diabetes Prevention goals. PLAN: She will cut sugar in coffee and iced tea by half as a first step; will increase non-carbohydrate foods; she will go to the gym with her daughter. She has our contact information and is informed about self management support follow up. Time Spent in Nutritional Counseling and Treatment: 10 minutes face to face
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
[2019-11-01 15:30] LABS: White Blood Cell Count 8.24 k/cumm (4.4-10.8)
== END 2019-10-29 15:55 | disposition home or self-care (01) | DRG 917 ==
LOC: ER 16:01 → ICU 16:41
PROVIDERS: Admitting Provider Internal Medicine; Emergency Provider Student in an Organized Health Care Education/Training Program; PCP Internal Medicine; Visit Provider Internal Medicine
DX: T43.592A Poisoning by other antipsychotics and neuroleptics, intentional self-harm, initial encounter (principal); G92 Toxic encephalopathy; Z68.43 Body mass index [BMI] 50.0-59.9, adult; E87.2 Acidosis; T42.4X2A Poisoning by benzodiazepines, intentional self-harm, initial encounter; T42.6X2A Poisoning by other antiepileptic and sedative-hypnotic drugs, intentional self-harm, initial encounter; D72.829 Elevated white blood cell count, unspecified; E11.65 Type 2 diabetes mellitus with hyperglycemia; R40.2422 Glasgow coma scale score 9-12, at arrival to emergency department; I10 Essential (primary) hypertension; I25.2 Old myocardial infarction; F32.9 Major depressive disorder, single episode, unspecified; E66.01 Morbid (severe) obesity due to excess calories; G47.00 Insomnia, unspecified; I25.10 Atherosclerotic heart disease of native coronary artery without angina pectoris; J44.9 Chronic obstructive pulmonary disease, unspecified; G47.33 Obstructive sleep apnea (adult) (pediatric); Z91.5 Personal history of self-harm
CPT/HCPCS: 36415; 36416; 51701; 73562; 80048; 80053; 80307; 81025; 82375; 82550; 82805; 82962; 83690; 84145; 87040; 87449; 93005; 96361; 96374; 96375; 97110; 97162; 97530; 99239; 99285; 99291; 70450; 71045; 72131; 73502; 76705; 80320; 80329; 81003; 82140; 83036; 83605; 83735; 83880; 84443; 84484; 85025; 85610; 85730; 86140; 87086; 93010; 94640; 94660; J1644; J2310; J2405; J7620

== ENCOUNTER 2020-01-26 18:25 | Emergency (ER) | payer MEDICAID, SELFPAY ==
[2020-01-26 18:29] VITALS: BP 116/79; PULSE 87; RESP 16; TEMP 36.9; O2SAT 96
--- NOTE | 2020-01-26 18:36 | ED.GENADUL_ITS ---
Discharge Plan Disposition Patient Disposition: HOME Condition: Stable Discharge Details Chief Complaint: Chest Pain Clinical Impression: Chest wall pain Primary Care Provider: Monty Gibbs ED Provider: Nestor Landaverde Peever Meds and New Rx's Prescriptions: New lidocaine [Lidoderm] 5 % adhesive patch,medicated 1 patch TP DAILY PRN (Reason: pain) Qty: 15 RF: 0 Continued furosemide 20 mg tablet 10 mg PO DAILY RF: 0 potassium chloride 20 mEq tablet extended release 20 meq PO BID RF: 0 Myrbetriq 50 mg tablet extended release 24 hr 50 mg PO DAILY Qty: 90 RF: 3 cholecalciferol (vitamin D3) 1,000 UNIT tablet 1,000 unit PO HS RF: 0 Vyvanse 70 MG capsule 70 mg PO QAM RF: 0 aspirin 81 MG tablet,delayed release (DR/EC) 81 mg PO DAILY RF: 0 omeprazole 20 MG capsule,delayed release(DR/EC) 20 mg PO DAILY RF: 0 amlodipine 10 MG tablet 10 mg PO DAILY RF: 0 nitroglycerin [Nitrostat] 0.4 MG tablet, sublingual 0.4 mg Sublingual DIRECTED PRNRF: 0 fluticasone propion-salmeterol [Advair Diskus] 1 EACH blister with device 1 puff Inhalation BID RF: 0 albuterol sulfate [Proventil HFA] 6.7 GM HFA aerosol inhaler 1 - 2 puff Inhalation Q4H PRN RF: 0 Fish Oil 1 EACH capsule 1 ea PO DAILY RF: 0 Probiotic 1 EACH capsule 1 ea PO DAILY RF: 0 atorvastatin [Lipitor] 40 MG tablet 40 mg PO HS RF: 0 Spiriva with HandiHaler 18 MCG capsule, w/inhalation device 2 puff Inhalation DAILY RF: 0 acetaminophen [Tylenol Arthritis Pain] 650 mg Tablet Extended Release 650 mg PO Q8H RF: 0 [employer] [employer] Mature 8 mg iron-400 mcg-300 mcg Tablet 1 tab PO DAILY RF: 0 pregabalin 100 mg Capsule 100 mg PO TID RF: 0 propranolol 40 mg Tablet 40 mg PO BID RF: 0 magnesium L-lactate 84 mg tablet extended release 84 mg PO BID RF: 0 Viibryd 20 mg tablet 20 mg PO DAILY RF: 0 Januvia 100 mg tablet 100 mg PO DAILY Qty: 30 RF: 0 clonazepam 0.5 mg tablet 0.5 mg PO TID Qty: 6 RF: 0 Discharge Instructions Instructions: Chest Wall Pain (ED) Additional Instructions: Drink plenty of fluids and get plenty of rest. Alternate tylenol and motrin as needed and directed for pain. Take Lidoderm patch as needed and directed for pain. Follow-up with your primary care doctor in 1 week. Return to the emergency department with any worsening or new concerning symptoms. Referrals: Monty Gibbs MD [Primary Care Provider] - Discharge Data Discharge Physician: Mirela Enriquez Medical Decision Making <Mirela Enriquez DO - Last Filed: 01/26/20 20:16> 1845 -- 54-year-old female with a history of morbid obesity, coronary artery disease, MO, anxiety, depression, GERD, COPD, hypertension, hyperlipidemia who presents for left-sided pleuritic chest pain since this morning. Initial EKG noted artifact. Repeat EKG noted a rate of 70, sinus without acute ST ischemic changes. She has some left lateral chest wall tenderness. Pain is reproducible with movement of her left arm down to her side. There is no evidence of trauma, rash or cellulitis. Her lungs are clear. Abdomen soft nontender. No lower extremity edema. Suspect most likely musculoskeletal, but considering patient's history, will obtain a cardiac work-up and CT chest to rule out PE. Will place Lidoderm patch and give a dose of Toradol and reassess. Labs reviewed and note a white blood cell count of 11. Troponin negative. CT negative for PE or other acute disease. 2009 --patient reassessed -she admitted to improvement of pain but states now returning. Vitals within normal limits. Will give a dose of morphine and anahi ssess. Plan for repeat troponin and EKG at 9:45 PM. 2014 --Case endorsed to Dr. Landaverde to follow-up on repeat troponin and final disposition. If repeat troponin and EKG unchanged, and patient's pain improved, okay to discharge home for likely chest wall pain. Medical Records Medical records reviewed: Yes I reviewed the patient's medical records. Imaging Data Radiologic Study: Radiologist's impression: CT Angiography Chest With Contrast Exam date and time: 01/26/2020 6:53 PM Age: 54 years old Clinical indication: Chest pain; Type not specified; Patient HX: HX of mi TECHNIQUE: Imaging protocol: Computed tomographic angiography of the chest with intravenous contrast. 3D rendering: MIP and/or 3D reconstructed images were created by the technologist. Radiation optimization: All CT scans at this facility use at least one of these dose optimization techniques: automated exposure control; mA and/or kV adjustment per patient size (includes targeted exams where dose is matched to clinical indication); or iterative reconstruction. Contrast material: OMNIPAQUE 350; Contrast volume: 100 ml; Contrast route: INTRAVENOUS (IV); COMPARISON: CR XR CHEST 1V IN DI DEPT 10/27/2019 2:50 PM FINDINGS: Pulmonary arteries: No evidence of acute pulmonary embolism. Pulmonary arteries well opacified. Aorta: Thoracic aorta is normal in configuration. No dissection. No aneurysm. Lungs: Minor right lung base atelectasis. Pleural space: Unremarkable. No pneumothorax. No pleural effusion. Heart: Mild cardiomegaly. No pericardial effusion. Lymph nodes: Unremarkable. No enlarged lymph nodes. Gallbladder and bile ducts: Incidental finding of gallstones. These are seen in a limited fashion on the lowest cut of the study. Bones/joints: Degenerative thoracic spine changes. Soft tissues: Unremarkable. IMPRESSION: 1. No pulmonary arterial embolism. 2. Minor posterior right lung base atelectasis. 3. Mild cardiomegaly. 4. Gallstones. 5. Degenerative thoracic spine disease. Lab Data Lab results reviewed: Yes I reviewed the patient's lab results. ECG Data Attestation: I personally reviewed and interpreted this ECG (s) as follows: Interpretation: Rate of 70, sinus, no acute ST elevation or depression. IN 158. QTc 425. QRS 94. <Nestor Landaverde MD - Last Filed: 01/26/20 22:09> Patient signed out to me pending repeat troponin and EKG. Had presented with chest pain with negative initial work-up. Please see Dr. Enriquez's note. Patient has been stable pending second EKG and troponin. Repeat EKG is normal with a rate of 65. Second troponin negative. Patient to be discharged home with presumed chest wall pain. Lidoderm patches prescribed by Dr. Enriquez. Tylenol and Motrin if needed. Follow-up with primary care. Return to ED for new or worsening pain, fever, shortness of breath, other concerns problems. Lab Data Lab results reviewed: Yes I reviewed the patient's lab results. ECG Data Attestation: I personally reviewed and interpreted this ECG (s) as follows: Prior ECG tracings: not available for review Interpretation: Sinus rhythm at 65. Normal axis, intervals, ST segments. Normal EKG. HPI <Mirela Enriquez DO - Last Filed: 01/26/20 20:16> General Mode of arrival: ambulatory . Date/Time Provider Initiated Documentation: 01/26/20 18:32 . Limitations to Documentation: no limitations . Information obtained by: patient . HPI Narrative: Patient is a 54-year-old female with a history of morbid obesity, COPD, coronary artery disease, MO, anxiety, depression, GERD, previous suicide attempts who presents with left- sided chest pain that started at 10 AM this morning while lying in bed. Patient states she laid in bed all day and then the pain became worse this evening. She denies any known injury. She states the pain is worse with moving her arm down near her chest and with deep breath. She states the pain is currently 8/10. She took 2 nitro at home without relief. She denies fever, cough, shortness of breath, dizziness. Related Data Home Medications Medication Instructions Recorded Confirmed cholecalciferol (vitamin D3) 1,000 unit PO HS 03/02/13 10/27/19 Spiriva with HandiHaler 2 puff INHALATION DAILY 12/13/15 10/27/19 atorvastatin [Lipitor] 40 mg PO HS 12/13/15 10/27/19 Fish Oil 1 ea PO DAILY 02/02/18 10/27/19 Probiotic 1 ea PO DAILY 02/02/18 10/27/19 Vyvanse 70 mg PO QAM 02/02/18 10/27/19 albuterol sulfate [Proventil HFA] 1 - 2 puff INHALATION Q4H PRN 02/02/18 10/27/19 inhaler amlodipine 10 mg PO DAILY tab-cap 02/02/18 10/27/19 aspirin 81 mg PO DAILY tab 02/02/18 10/27/19 fluticasone propion-salmeterol 1 puff INHALATION BID disk 02/02/18 10/27/19 [Advair Diskus] nitroglycerin [Nitrostat] 0.4 mg SUBLINGUAL DIRECTED PRN 02/02/18 10/27/19 omeprazole 20 mg PO DAILY tab-cap 02/02/18 10/27/19 furosemide 20 mg tablet 10 mg PO DAILY tab 02/26/19 10/27/19 potassium chloride 20 mEq 20 meq PO BID 02/26/19 10/27/19 tablet,extended release mirabegron 50 mg tablet,extended 50 mg PO DAILY #90 tab-cap 09/28/19 10/27/19 release 24 hr [facility] Mature 1 tab PO DAILY 10/27/19 10/27/19 acetaminophen [Tylenol Arthritis 650 mg PO Q8H 10/27/19 10/27/19 Pain] Viibryd 20 mg PO DAILY 10/28/19 10/28/19 magnesium L-lactate 84 mg PO BID 10/28/19 10/28/19 pregabalin 100 mg PO TID 10/28/19 10/28/19 propranolol 40 mg PO BID 10/28/19 10/28/19 Januvia 100 mg PO DAILY #30 tab 10/29/19 clonazepam 0.5 mg PO TID #6 tab 10/29/19 lidocaine [Lidoderm] 1 patch TP DAILY PRN #15 each 01/26/20 Previous Rx's Medication Instructions Recorded mirabegron 50 mg tablet,extended 50 mg PO DAILY #90 tab-cap 09/28/19 release 24 hr Januvia 100 mg PO DAILY #30 tab 10/29/19 clonazepam 0.5 mg PO TID #6 tab 10/29/19 lidocaine [Lidoderm] 1 patch TP DAILY PRN #15 each 01/26/20 Allergies Allergy/AdvReac Type Severity Reaction Status Date / Time sertraline [From Zoloft] Allergy Severe Agitation Verified 01/26/20 18:33 lisinopril Allergy Intermediate lips swell Unverified 01/26/20 18:33 General Stated Complaint: Chest Pain IVAN: 2 Review of Systems <Mirela Enriquez DO - Last Filed: 01/26/20 20:16> All systems reviewed & are unremarkable except as noted in HPI and below Constitutional Constitutional: Reports as per HPI, Denies chills and Denies fever(s) Eyes Eyes: Denies blurry vision ENT Ears, Nose, Mouth, and Throat: Denies dizziness, Denies sore throat and Denies throat swelling Cardiovascular Cardiovascular: Reports chest pain and Denies dyspnea Respiratory Respiratory: Denies cough and Denies dyspnea Gastrointestinal Gastrointestinal: Denies abdominal pain, Denies diarrhea and Denies vomiting Genitourinary Genitourinary: Denies hematuria and Denies dysuria Musculoskeletal Musculoskeletal: Denies back pain and Denies numbness Integumentary/Breasts Skin/Breast: Denies lesions and Denies rash Neurologic Neurologic: Denies dizziness, Denies localized weakness and Denies numbness Allergic/Immunologic Allergic/Immunologic: Denies throat swelling PFSH <Mirela Enriquez DO - Last Filed: 01/26/20 20:16> Social History (Updated 10/11/19 @ 11:54 by Na Cannon) Smoking/Tobacco Use Status: Never Alcohol Intake: never Drug use: Daily Substance use type: marijuana Details: marijuana: half joint Household members: none Housing: apartment Do you feel safe at home: Yes Do you feel safe in your relationship?: Yes Exam <Mirela Enriquez DO - Last Filed: 01/26/20 20:16> Const General: cooperative, no acute distress and other (Keeps eyes closed during exam) Orientation: alert, awake and oriented x3 HENMT Head: normal to inspection Face and sinus: normal facial exam Eyes General: appearance normal, both eyes and all related structures EOM: EOM intact bilaterally Neck Neck: normal visual inspection and No submandibular swelling Lymphatic: no lymphadenopathy noted Chest Chest: normal inspection of the chest, no crepitus and tenderness (Left lateral chest wall) Resp Effort & Inspection: normal respiratory effort and able to speak in complete sentences Auscultation: clear to auscultation bilaterally Cardio Rate: regular rate Rhythm: regular rhythm GI Inspection: normal to inspection Palpation: soft, not firm, not rigid and nontender Auscultation: normal bowel sounds Skin General skin exam: no rashes or lesions noted Neuro General: patient alert, patient awake and patient oriented x3 Cognition: normal cognition Speech: speech normal Motor: muscle tone normal throughout Sensory Exam: no sensory deficits noted Extrem General: normal to inspection, full ROM, capillary refill normal, no calf tenderness bilaterally and no edema Psych Appearance: grossly normal Mental Status: mental status grossly normal Speech and Movement: speech and movement normal Affect: normal affect Course <DO Hitesh Vargas Last Filed: 01/26/20 20:16> Vital Signs Vital signs: Vital Signs Temperature 98.4 F 01/26/20 18:29 Pulse 87 01/26/20 18:29 Respiratory Rate 16 01/26/20 18:29 Blood Pressure 116/79 01/26/20 18:29 Pulse Oximetry 96 01/26/20 18:29 Temperature 98.4 F 01/26/20 18:29 Temperature Source Skin 01/26/20 18:29 Pulse 87 01/26/20 18:29 Respiratory Rate 16 01/26/20 18:29 Respiratory Effort Non-Labored 01/26/20 18:29 Blood Pressure 116/79 01/26/20 18:29 Pulse Oximetry 96 01/26/20 18:29 Oxygen Delivery Method Room Air 01/26/20 18:29 Oxygen Flow Rate 0 01/26/20 18:29 Pain Level 9 01/26/20 18:29 Sign Out <Mirela Enriquez DO - Last Filed: 01/26/20 20:16> Sign Out Data: Sign Out Comment: Follow-up on repeat troponin and EKG. If negative okay to discharge home. Last updated by Mirela Enriquez DO at 01/26/20 20:07
[2020-01-26 18:54] LABS: Abs Immature Grans 0.07 k/cumm (0.0-0.09); Absolute Basophil Count 0.02 k/cumm (0.0-0.2); Absolute Eosinophil Count 0.35 k/cumm (0.0-0.7); Absolute Lymphocyte Count 3.21 k/cumm (1.2-3.4); Absolute Monocyte Count 0.51 k/cumm (0.11-0.7); Absolute Neutrophil Count 7.26 k/cumm (1.2-6.7); Basophils % 0.2; Eosinophils % 3.1; HCT 36.1 % (36.0-46.0); HGB 11.5 g/dL (12.0-15.5); Immature Grans % 0.6 %; Lymphocytes % 28.1; Mean Corp. HGB Concentration 31.9 g/dL (32.0-36.0); Mean Corpuscular Hemoglobin 27.9 pg (27.0-33.0); Mean Corpuscular Volume 87.6 fL (80-95); Monocytes % 4.5; Neutrophils % 63.5; Platelet Count 261 x1000/uL (130-400); RBC 4.12 m/cumm (4.00-5.20); RBC Distribution Width 14.9 % (11.7-14.6); White Blood Cell Count 11.43 k/cumm (4.4-10.8)
[2020-01-26] MEDS: Lidocaine 5% Patch 1 PATCH TP (18:58)
[2020-01-26] MEDS: Normal Saline 1,000 ML 1000 ML IV (18:58)
[2020-01-26] MEDS: Ketorolac 30 MG/ML VIAL IVP (18:58)
[2020-01-26 19:10] LABS: ALT 20 U/L (14-59); AST 19 U/L (15-37); Albumin 3.5 g/dL (3.4-5.0); Alkaline Phosphatase 149 U/L (46-116); Anion Gap 9.8 mmol/L (3-11); BUN 15 mg/dL (7-18); Bilirubin, Total 0.4 mg/dL (0.2-1.0); CO2 28.2 mmol/L (21.0-32.0); CREATININE 1.19 mg/dL (0.55-1.02); Chloride 103 mmol/L (98-107); Estimated GFR 47.27 (mL/min/1.73m2); Glucose 143 mg/dL (74-106); Magnesium 1.8 mg/dL (1.8-2.4); Potassium 4.1 mmol/L (3.5-5.1); Sodium 141 mmol/L (136-145); Total Protein 7.3 g/dL (6.4-8.2)
[2020-01-26 19:12] LABS: Troponin I < 0.05 ng/mL (<0.06)
[2020-01-26] MEDS: Omnipaque 350 MG/ML 100 ML BTL IJ (19:36)
[2020-01-26] MEDS: Normal Saline - Diluent 50 ML VIAL IV (19:36)
--- NOTE | 2020-01-26 19:37 | DI.CT_ITS ---
EXAM: CT CHEST PE CTA CLINICAL HISTORY: L chest pleuritic pain, r/o PE. TECHNIQUE: Imaging Protocol: Axial CT angiography was performed with multi-slice acquisition and mu lti-planar and/or 3D reconstructions. CONTRAST MATERIAL: Intravenous: Omnipaque 350 Contrast volume:100 cc COMPARISON: CR XR CHEST 1V IN DI DEPT from 10/27/2019 CR XR CHEST 1V IN DI DEPT from 10/27/2019 FINDINGS: Pulmonary Arteries: No evidence of filling defect to suggest pulmonary emboli. Tracheobronchial tree: Patent where visualized. Mediastinum and Caitlyn: No dominant adenopathy or fluid collection. Pulmonary parenchyma: No consolidation or dominant measurable mass. Minimal basilar atelectasis. Pleura: No effusion or pneumothorax. Heart: The heart is mildly dilated. No coronary artery calcifications are seen. Aorta: Thoracic aorta non-dilated. Upper abdomen: Enlarged fatty liver. Question of gallstones.. Bones: Degenerative changes in the thoracic spine IMPRESSION: No evidence of pulmonary embolism or other acute abnormality.. RADIATION DOSE DELIVERED: 658.72mGy.cm Total DLP DATA REPOSITORY: All CT scans at this facility are submitted to the National Radiology Data Registry (NRDR) Dose Index Registry (DIR) with the [employer] (ACR). RADIATION OPTIMIZATION: All CT scans at this facility use at least one of these dose optimization te chniques: automated exposure control; mA and/or kV adjustment per patient size (includes targeted exa ms where dose is matched to clinical indication); or iterative reconstruction.
--- NOTE | 2020-01-26 19:49 | DI.VRAD_ITS ---
PROCEDURE INFORMATION: Exam: CT Angiography Chest With Contrast Exam date and time: 01/26/2020 6:53 PM Age: 54 years old Clinical indication: Chest pain; Type not specified; Patient HX: HX of mi TECHNIQUE: Imaging protocol: Computed tomographic angiography of the chest with intravenous contrast. 3D rendering: MIP and/or 3D reconstructed images were created by the technologist. Radiation optimization: All CT scans at this facility use at least one of these dose optimization techniques: automated exposure control; mA and/or kV adjustment per patient size (includes targeted exams where dose is matched to clinical indication); or iterative reconstruction. Contrast material: OMNIPAQUE 350; Contrast volume: 100 ml; Contrast route: INTRAVENOUS (IV); COMPARISON: CR XR CHEST 1V IN DI DEPT 10/27/2019 2:50 PM FINDINGS: Pulmonary arteries: No evidence of acute pulmonary embolism. Pulmonary arteries well opacified. Aorta: Thoracic aorta is normal in configuration. No dissection. No aneurysm. Lungs: Minor right lung base atelectasis. Pleural space: Unremarkable. No pneumothorax. No pleural effusion. Heart: Mild cardiomegaly. No pericardial effusion. Lymph nodes: Unremarkable. No enlarged lymph nodes. Gallbladder and bile ducts: Incidental finding of gallstones. These are seen in a limited fashion on the lowest cut of the study. Bones/joints: Degenerative thoracic spine changes. Soft tissues: Unremarkable. IMPRESSION: 1. No pulmonary arterial embolism. 2. Minor posterior right lung base atelectasis. 3. Mild cardiomegaly. 4. Gallstones. 5. Degenerative thoracic spine disease. Dictated and Authenticated by: Jordy Gamino MD. Ordering:MARSHA Dietz MD
--- NOTE | 2020-01-26 20:15 | NUR.NOTE ---
Assumed care of pt. Reports continued 04/20 dull left chest pain. non-radiating. Plan for EKG and trop at 5. Pt aware of plan.
[2020-01-26 20:38] VITALS: BP 147/94; PULSE 68; RESP 17; O2SAT 94
[2020-01-26 21:58] LABS: Troponin I < 0.05 ng/mL (<0.06)
[2020-01-26 22:19] VITALS: BP 138/83; PULSE 70; RESP 14; O2SAT 96
== END 2020-01-26 22:20 | disposition home or self-care (01) ==
LOC: ER 20:20
PROVIDERS: Physician Assistant; Emergency Provider Emergency Medicine; PCP Internal Medicine
DX: R07.81 Pleurodynia (principal); J10.00 Influenza due to other identified influenza virus with unspecified type of pneumonia; J44.9 Chronic obstructive pulmonary disease, unspecified; I25.10 Atherosclerotic heart disease of native coronary artery without angina pectoris
CPT/HCPCS: 36415; 71275; 80053; 93005; 96361; 96374; 96375; 99285; 83735; 84484; 85025; 93010; J1885; J3490

== ENCOUNTER 2020-08-07 13:15 | Emergency (ER) | payer MEDICAID, SELFPAY ==
[2020-08-07 13:19] VITALS: BP 138/93; PULSE 89; RESP 20; TEMP 36.3; O2SAT 96
--- OUTSIDE RECORDS SUMMARY | 2020-08-07 13:20 | XMS_ITS ---
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 ? Active ? 75118 RxNorm Zoloft ? ? Active ? Medications Name Status Start Date Stop Date ? ? Advair Diskus 100 mcg-50 mcg/dose powder for inhalation Active ? Not available Inhale 1 puff twice a day by inhalation route. Ambien 5 mg tablet Active ? Not available Take 1 tablet every day by oral route. amlodipine 10 mg tablet Active ? Not avai lable Take 1 tablet every day by oral route. aspirin 81 mg tablet,delayed release Active ? Not available Take 1 tablet every day by oral route. atorvastatin 40 mg tablet Active ? Not av ailable Take 1 tablet every day by oral route. Centrum Silver Active ? Not available clonazepam 0.5 mg tablet Completed ? 020 Take 1 tablet 3 times a day by oral route. Enablex 15 mg tablet,extended release Active ? Not available Take 1 tablet every day by oral route. famotidine 20 mg tablet Active ? Not avai lable Take 1 tablet twice a day by oral route. ferrous sulfate 325 mg (65 mg iron) tablet Active ? Not available Take 1 tablet every day by oral route. Fish Oil 1,000 mg (120 mg-180 mg) capsule Active ? Not available Take by oral route. fluoxetine 40 mg capsule Completed ? 020 Take 2 capsules every day by oral route. furosemide 20 mg tablet Active ? Not avai lable Take 0.5 tablets every day by oral route. metformin Active ? Not available Myrbetriq 50 mg tablet,extended release Active ? Not available Take 1 tablet every day by oral route. Narcan 4 mg/actuation nasal spray Active ? Not available Take by nasal route. Nitrostat 0.4 mg sublingual tablet Active ? Not available Place 1 tablet by sublingual route. omeprazole 20 mg capsule,delayed release Active ? Not available Take 1 capsule every day by oral route. potassium chloride ER 20 mEq tablet,extended release Active ? Not available Take 1 tablet twice a day by oral route. Probiotic Active ? Not available Proventil HFA 90 mcg/actuation aerosol inhaler Active ? Not available Inhale 2 puffs every 4 hours by inhalation route. Seroquel 200 mg tablet Active ? Not avail able Take 2 tablets every day by oral route at bedtime. Spiriva with HandiHaler 18 mcg and inhalation capsules Active ? Not available Inhale 1 capsule every day by inhalation route. topiramate 50 mg tablet Active ? Not avai lable Take 1 tablet twice a day by oral route. trazodone 100 mg tablet Active ? Not avai lable Take 1 tablet every day by oral route. Trintellix 20 mg tablet Active ? Not avai lable Take 1 tablet every day by oral route. Tylenol 8 Hour 650 mg tablet,extended release Active ? Not available Take 1 tablet every 8 hours by oral route. Vitamin D3 25 mcg (1,000 unit) capsule Active ? Not available Take by oral route. Vyvanse 70 mg capsule Active ? Not availa ble Take 1 capsule every day by oral route. Problems Name Status Onset Date Source ? Uterine Leiomyoma Active 04/26/2019 ? Hypomagnesemia Active 04/26/2019 ? Obesity Active 04/26/2019 ? Mixed Anxiety and Depressive Disorder Active 04/26/2019 ? Hypertensive Disorder Active 04/26/2019 ? Acute non-ST Segment Elevation Myocardial Active 2018 ? Infarction Pulmonary Hypertension Active 04/26/2019 ? Upper Respiratory Infection Active 04/26/2019 ? Indigestion Active 04/26/2019 ? Genuine Stress Incontinence Active 04/26/2019 ? Chronic Back Pain Active 04/26/2019 ? Cramp in Lower Limb Active 04/26/2019 ? Dizziness Active 04/26/2019 ? Snoring Active 04/26/2019 ? Suprapubic Pain Active 04/26/2019 ? Insomnia Active 07/13/2019 ? Parasomnia Active 07/13/2019 ? Daytime Somnolence Active 07/13/2019 ? Dream Enactment Behavior Active 07/13/2019 ? Diabetes Mellitus Active 11/08/2019 ? Obstructive Sleep Apnea Syndrome Active ? ? Procedures Date Name Performed by ? 07/13/2019 Polysomnogram Information not avai lable Results Lab Results None recorded. 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 11/08/2019 Obstructive Sleep Apnea Syndrome Paty Shepherd TRADE RECRUITER: [address] [place] [phone], Ph. 08/12/2019 Obstructive Sleep Apnea Syndrome; Dream Enactment Behavior Paty Shepherd TRADE RECRUITER: [address] [place] [phone], Ph. 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 Social History Tobacco Smoking Status Never Smoker Vaccine List None recorded. Plan of Care Reminders Provider Appointments None ? ? recorded. Lab None ? ? recorded. Referral None ? ? recorded. Procedures None ? ? recorded. Surgeries None ? ? recorded. Imaging None ? ? recorded. Vitals 04/06/2020 09:00AM Office 15 Height Weight BMI Blood Pressure 152.4 cm 119.75 kg 51.6 kg/m2 128/72 mm[Hg] 11/08/2019 10:00AM Office 30 Height Weight BMI 152.4 cm 119.29 kg 51.4 kg/m2 08/12/2019 01:45PM Office 30 Height Weight BMI Blood Pressure 152.4 cm 116.57 kg 50.2 kg/m2 145/85 mm[Hg] 07/13/2019 09:00AM New Patient 45 Height Weight BMI Blood Pressure 152.4 cm 119.84 kg 51.6 kg/m2 130/90 mm[Hg]
[2020-08-07] MEDS: Penicillin V POTASSIUM 500 MG TAB PO (14:22)
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
== END 2020-08-07 14:22 | disposition home or self-care (01) ==
PROVIDERS: Emergency Provider Student in an Organized Health Care Education/Training Program; PCP Internal Medicine
DX: R22.0 Localized swelling, mass and lump, head (principal); K04.7 Periapical abscess without sinus; E11.9 Type 2 diabetes mellitus without complications; Z79.84 Long term (current) use of oral hypoglycemic drugs; I10 Essential (primary) hypertension; J44.9 Chronic obstructive pulmonary disease, unspecified
CPT/HCPCS: 99283

== ENCOUNTER 2020-11-07 15:00 | Outpatient (REF) | payer MEDICAID, SELFPAY ==
[2020-11-07 21:17] LABS: Abs Immature Grans 0.26 10^3/uL (0.0-0.06); Absolute Basophil Count 0.07 10^3/uL (0.0-0.2); Absolute Lymphocyte Count 2.54 10^3/uL (1.2-3.4); Absolute Monocyte Count 0.53 10^3/uL (0.1-0.8); Absolute Neutrophil Count 7.65 10^3/uL (1.2-6.7); Basophils % 0.6; HCT 37.6 % (36.0-46.0); HGB 11.6 g/dL (11.2-15.7); Immature Grans % 2.3; Lymphocytes % 22.5; MCH 27.7 pg (27.0-33.0); MCHC 30.9 % (32.0-36.0); MCV 89.7 fL (80-95); MPV 11.2 fL (8.0-11.0); Monocytes % 4.7; Neutrophils % 67.9; Nucleated RBC 0 %; Platelet Count 268 10^3/uL (130-400); RBC 4.19 10^6/uL (3.93-5.22); RDW 13.7 % (11.7-14.6); RDW-SD 44.7 fL; WBC 11.27 10^3/uL (4.4-10.8)
[2020-11-07 21:28] LABS: Absolute Eosinophil Count 0.23 10^3/uL (0.0-0.7)
[2020-11-07 21:35] LABS: Iron 58 ug/dL (50-170); Total Iron Binding Capacity 366 ug/dL (250-450); Transferrin Sat 16 % (15-50)
[2020-11-07 21:50] LABS: Hemoglobin A1C 6.7 % (<5.7)
[2020-11-07 21:58] LABS: ALT 23 U/L (14-59); AST 16 U/L (15-37); Albumin 3.8 g/dL (3.4-5.0); Alkaline Phosphatase 189 U/L (46-116); Anion Gap 9.1 mmol/L (3-11); BUN 9 mg/dL (7-18); Bilirubin, Total 0.4 mg/dL (0.2-1.0); CO2 30.9 mmol/L (21.0-32.0); CREATININE 1.1 mg/dL (0.55-1.02); Calcium 8.8 mg/dL (8.5-10.1); Calculated LDL 106 mg/dL (<100); Chloride 102 mmol/L (98-107); Cholesterol 203 mg/dL (<200); Estimated GFR 51.76 (mL/min/1.73m2); Ferritin 56 ng/mL (8-252); GGT 46 U/L (5-55); Glucose 102 mg/dL (74-106); HDL Cholesterol 44 mg/dL (40-60); Magnesium 1.7 mg/dL (1.8-2.4); Sodium 142 mmol/L (136-145); TSH (W/Ref FT4) 1.63 uIU/mL (0.36-3.74); Total Protein 7.6 g/dL (6.4-8.2); Triglyceride 269 mg/dL (<150); Vitamin B12 370 pg/mL (193-986)
[2020-11-09 09:28] LABS: HIV-1/2 Ag & Ab Screen Negative (Negative)
[2020-11-09 09:56] LABS: Hepatitis C Ab w Rflx HCV PCR Negative (Negative)
[2020-11-09 12:04] LABS: Vitamin D 25 Total 34.2 ng/mL (30-100)
== END 2020-11-07 15:01 | disposition home or self-care (01) ==
LOC: NCHCN 15:00
PROVIDERS: PCP Internal Medicine; Visit Provider Nurse Practitioner Family
DX: I10 Essential (primary) hypertension (principal); E11.9 Type 2 diabetes mellitus without complications; R74.8 Abnormal levels of other serum enzymes; R51.9 Headache, unspecified; K30 Functional dyspepsia; G93.41 Metabolic encephalopathy; R06.09 Other forms of dyspnea; Z11.4 Encounter for screening for human immunodeficiency virus [HIV]; Z11.59 Encounter for screening for other viral diseases; Z79.84 Long term (current) use of oral hypoglycemic drugs
CPT/HCPCS: 80053; 80061; 82306; 86803; 87389; 82607; 82728; 82977; 83036; 83540; 83550; 83735; 84443; 85025

== ENCOUNTER 2020-11-28 17:23 | Outpatient (REF) | payer MEDICAID, SELFPAY ==
--- NOTE | 2020-11-28 15:00 | PAPFT_PTH ---
PATIENT: Na Matson LOC: [facility] U#:[id number] AGE/SX: 54/F ROOM: RE11/28/[address]: RANDY Albright : 1965 BED: DIS: 11/28/2020 SPEC #: [id number] RECD: 11/28/20 17:43 STATUS: SHUBHAM REQ #: [id number] DENISA: 11/28/20 15:[address]: Alfreda Hurley DEPT: [facility] Cytology RECD BY: Yaneth Park ENTERED: 11/28/20 17:43 SP TYPE: PAPFT OTHR DR: Monty Gibbs Tissues: 1 - CX/ENDOCX FOR PAP SMEARS Procedures: PAP THIN PREP/UVM Screening HPV DNA PROBE Comments: [id number]
== END 2020-11-28 17:24 | disposition home or self-care (01) ==
LOC: LBN 17:23
PROVIDERS: PCP Internal Medicine; Visit Provider Nurse Practitioner Family
DX: Z12.4 Encounter for screening for malignant neoplasm of cervix (principal); Z11.51 Encounter for screening for human papillomavirus (HPV)
CPT/HCPCS: 88142; 87624

== ENCOUNTER 2020-11-29 14:04 | Outpatient (CLI) | payer MEDICAID, SELFPAY ==
--- NOTE | 2020-11-29 15:32 | DI.MAMMO_ITS ---
EXAM: MG MAMMO SCREENING CLINICAL HISTORY: SCREENING, Z12.31, FAM HX, Z80.3. TECHNIQUE: Bilateral full field digital CC and MLO mammographic images were obtained with 3D tomosyn thesis and utilizing computer aided detection (CAD). COMPARISON: Prior mammograms dating back to 2010, the most recent being February 2019. FINDINGS: No new significant radiograph findings in the right breast. In the left breast there is a new well-defined 2 millimeter noncalcified nodule in the medial aspect located approximately 8 cm in from the nipple, in the inferior aspect of the breast, medially. No ma lignant-appearing microcalcification groups in this region or elsewhere in either breast There is no significant architectural distortion nor skin thickening-retraction. IMPRESSION: No radiographic evidence of malignancy in the right breast. New small 2 millimeter noncalcified nodule in the inferomedial aspect of the left breast. Spot compr ession view and ultrasound recommended. BI-RADS Category 0 - Assessment Incomplete: Need additional imaging evaluation Breast Density - Category A - Almost entirely fatty Breast density Category C or D implies that the patient has dense breast tissue. Dense breast tissue can make it harder to find cancer on a mammogram. Dense breast tissue is also associated with an incr eased risk of breast cancer. This information about the result of the mammogram report was provided to the patient to raise their awareness. Use this report when you speak with the patient about their risks for breast cancer, which includes their family history. At that time, you may recommend additional screening tests (Ultrasoun d or MRI) as these tests may add significant information. A negative radiographic report should not delay biopsy if a dominant or clinically suspicious mass is present. Up to ten percent of cancers are not identified on mammography. A negative report may reinforce clinical impression. Adenosis and dense breasts may obscure an underlying neoplasm. False positive reports average 6 to 10%. Patient will receive a letter notifying them of these results.
== END 2020-11-29 14:24 ==
PROVIDERS: PCP Internal Medicine; Visit Provider Nurse Practitioner Family
DX: Z12.31 Encounter for screening mammogram for malignant neoplasm of breast (principal); R92.8 Other abnormal and inconclusive findings on diagnostic imaging of breast; Z80.3 Family history of malignant neoplasm of breast
CPT/HCPCS: 77063; 77067

== ENCOUNTER 2020-12-15 04:17 | Outpatient (CLI) | payer MEDICAID, SELFPAY ==
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
[2020-12-14 17:19] VITALS: BMI 56.3
--- NOTE | 2020-12-15 | DI.MAMMO_ITS ---
Exam(s) MG MAMMO SCREEN CALL BACK UNI US BREAST LT LIMITED EXAM: MG MAMMO SCREEN CALL BACK UNI and U/S breast LT limited CLINICAL HISTORY: F/U MAMMO, NEW LT NODULE. TECHNIQUE: Craniocaudal and mediolateral oblique Full Field Digital Mammography views of the left br east with Computer Aided Diagnosis followed by Tomosynthesis and left breast ultrasound. COMPARISON: Comparison is made with prior examinations. FINDINGS: Mammography/Tomosynthesis: Masses/Architectural Distortion: None seen. Microcalcifictions: No suspicious pleomorphic-type are seen. Skin Thickening/Nipple Retraction: None. Left breast US: Echotexture: Normal appearance of the glandular tissue. Shadowing: No suspicious foci. Cyst: None. Solid lesions: None seen. Ductal dilation: None. IMPRESSION: 1. No evidence of malignancy is noted. 2. Unless there is more urgent need, follow-up screening mammography is recommended, as per [place] [employer] guidelines. 3. The findings were discussed with the patient on the date of the examination. BI-RADS Category 1 - Negative Breast Density - Category A - Almost entirely fatty Breast density Category C or D implies that the patient has dense breast tissue. Dense breast tissue can make it harder to find cancer on a mammogram. Dense breast tissue is also associated with an incr eased risk of breast cancer. This information about the result of the mammogram report was provided to the patient to raise their awareness. Use this report when you speak with the patient about their risks for breast cancer, which includes their family history. At that time, you may recommend additional screening tests (Ultrasoun d or MRI) as these tests may add significant information. A negative radiographic report should not delay biopsy if a dominant or clinically suspicious mass is present. Up to ten percent of cancers are not identified on mammography. A negative report may reinforce clinical impression. Adenosis and dense breasts may obscure an underlying neoplasm. False positive reports average 6 to 10%. Patient will receive a letter notifying them of these results.
== END 2020-12-15 04:37 ==
PROVIDERS: PCP Internal Medicine; Visit Provider Nurse Practitioner Family
DX: Z12.31 Encounter for screening mammogram for malignant neoplasm of breast (principal); R92.8 Other abnormal and inconclusive findings on diagnostic imaging of breast; N64.59 Other signs and symptoms in breast
CPT/HCPCS: 76642; 77063; 77067

== ENCOUNTER 2020-12-15 13:36 | Outpatient (CLI) | payer MEDICAID, SELFPAY ==
--- NOTE | 2020-12-15 13:30 | RT.EKG_ITS ---
APPROVED REPORT Exam: Resting ECG Reason for Exam: old myocardial infarction Patient Location: O HR:90 bpm ECG Measurements Heart Rate 90 AXIS KS 172 P -2 QRSd 100 QRS 4 QT 353 T 62 QTc 432 Conclusion Sinus rhythm...normal P axis, V-rate 50- 99 Low voltage, precordial leads...precordial leads <1.0mV Nonspecific T abnrm, anterolateral leads...T <-0.10mV, I aVL V2-V6
== END 2020-12-15 13:37 | disposition home or self-care (01) ==
LOC: DI.CARD 13:38
PROVIDERS: PCP Internal Medicine; Visit Provider Internal Medicine Cardiovascular Disease
DX: I25.2 Old myocardial infarction (principal)
CPT/HCPCS: 93010

== ENCOUNTER 2021-03-06 17:10 | Inpatient (IN) | payer MEDICAID, SELFPAY ==
[2021-03-06] VITALS (35 sets, daily range): BP systolic 122–158; BP diastolic 61–89; PULSE 71–83; RESP 14–24; TEMP 36.6–36.9; O2SAT 73–99
--- NOTE | 2021-03-06 17:15 | RT.EKG_ITS ---
APPROVED REPORT Exam: Resting ECG Reason for Exam: sob Patient Location: E HR:83 bpm ECG Measurements Heart Rate 83 AXIS CA 184 P 43 QRSd 93 QRS 14 QT 381 T 63 QTc 447 Conclusion Sinus rhythm...normal P axis, V-rate 60- 99. No STEMI. I have reviewed and interpreted ECG and agree with software generated interpretation.
--- NOTE | 2021-03-06 17:30 | DI.RAD_ITS ---
Exam(s) XR PORTABLE CHEST AP EXAM: XR PORTABLE CHEST AP CLINICAL HISTORY: PUI, SOB, Hx COPD. TECHNIQUE: 2D digital imaging was performed. COMPARISON: CR XR CHEST 1V IN DI DEPT from 10/27/2019 FINDINGS: Chest leads in place. Cardiomegaly again noted. The mediastinum is not widened. No obvious infiltr ates in the upper lung zones. Slight increased density both lower lung zones but this may just be re lated to portable technique. No obvious pleural effusions. No pneumothorax. IMPRESSION: As above. Recommend nonportable PA and lateral views when clinically possible. DATA REPOSITORY: RADIATION DOSE DELIVERED: All CT scans at this facility use at least one of these dose optimization techniques: automated exposure control; mA and/or kV adjustment per patient size (includes targeted e xams where dose is matched to clinical indication); or iterative reconstruction.
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
[2021-03-06 17:46] LABS: Source Nasal/Nares
[2021-03-06 17:51] LABS: Abs Immature Grans 0.25 10^3/uL (0.0-0.06); Absolute Basophil Count 0.06 10^3/uL (0.0-0.2); Absolute Eosinophil Count 0.35 10^3/uL (0.0-0.7); Absolute Monocyte Count 0.61 10^3/uL (0.1-0.8); Absolute Neutrophil Count 8.06 10^3/uL (1.2-6.7); Basophils % 0.5; HCT 36.2 % (36.0-46.0); HGB 10.6 g/dL (11.2-15.7); Immature Grans % 2.2; Lymphocytes % 19.1; MCH 26.4 pg (27.0-33.0); MCHC 29.3 % (32.0-36.0); MCV 90.3 fL (80-95); MPV 10.2 fL (8.0-11.0); Monocytes % 5.3; Neutrophils % 69.9; Nucleated RBC 0 %; Platelet Count 205 10^3/uL (130-400); RBC 4.01 10^6/uL (3.93-5.22); RDW-SD 52.1 fL; WBC 11.53 10^3/uL (4.4-10.8)
[2021-03-06] MEDS: methylPREDNISolone SUCC 125 MG VIAL IVP (18:04)
[2021-03-06] MEDS: Albuterol/Ipratropium 3 ML UPD VIAL UPD ×2 (18:04→20:30)
[2021-03-06 18:09] LABS: ALT 21 U/L (14-59); AST 13 U/L (15-37); Albumin 3.6 g/dL (3.4-5.0); Alkaline Phosphatase 154 U/L (46-116); Anion Gap 7.1 mmol/L (3-11); BUN 14 mg/dL (7-18); Bilirubin, Total 0.4 mg/dL (0.2-1.0); CO2 32.9 mmol/L (21.0-32.0); CREATININE 1.1 mg/dL (0.55-1.02); Calcium 8.7 mg/dL (8.5-10.1); Chloride 104 mmol/L (98-107); Estimated GFR 51.57 (mL/min/1.73m2); Glucose 139 mg/dL (74-106); Magnesium 1.7 mg/dL (1.8-2.4); Potassium 3.7 mmol/L (3.5-5.1); Sodium 144 mmol/L (136-145); Total Protein 7.8 g/dL (6.4-8.2)
[2021-03-06 18:14] LABS: Troponin I < 0.05 ng/mL (<0.06)
[2021-03-06 18:17] LABS: NT-proBNP 394 pg/mL (<300)
--- NOTE | 2021-03-06 18:22 | DI.VRAD_ITS ---
PROCEDURE INFORMATION: Exam: XR Chest Exam date and time: 03/06/2021 5:39 PM Age: 55 years old Clinical indication: Shortness of breath; Patient HX: Pui, SOB, HX of copd TECHNIQUE: Imaging protocol: XR of the chest. Views: 1 view. COMPARISON: CR XR CHEST 1V IN DI DEPT 10/27/2019 2:50 PM FINDINGS: Lungs: Mild interstitial prominence over the bases. Pleural spaces: Unremarkable. No pleural effusion. No pneumothorax. Heart/Mediastinum: Heart is mildly enlarged. Bones/joints: Unremarkable. Other findings: Underpenetration. IMPRESSION: Question CHF with mild interstitial edema Dictated and Authenticated by: Cuong Lee MD. Ordering:PHIL Ferrera MD
[2021-03-06 18:27] LABS: D-Dimer 983 ng/mlFEU (<500)
--- NOTE | 2021-03-06 18:31 | DI.CT_ITS ---
Exam(s) CT CHEST PE CTA EXAM: CT CHEST PE CTA CLINICAL HISTORY: SOB, Hx COPD, Elevated Dimer. TECHNIQUE: Imaging Protocol: CT angiography of the chest was performed using pulmonary embolus natividad col. Multi planar reconstructions were performed. CONTRAST MATERIAL: Intravenous: Omnipaque 350 Contrast volume: 100 cc COMPARISON: CT CT CHEST PE CTA from 01/26/2020 FINDINGS: CHEST: PULMONARY ARTERIES: There are no intraluminal filling defects to suggest acute pulmonary emboli. LUNGS: There are patchy bilateral infiltrates, more prominent on the right side. Most prominent of t hese areas of infiltrate is in the lateral aspect of the right upper lobe.. There are no associated pleural effusions. No focal findings in trachea and mainstem bronchi. MEDIASTINUM: There is no hilar nor mediastinal adenopathy. Visualized thyroid unremarkable. CARDIAC: Heart size is upper normal. There is no pericardial effusion.Caliber of the thoracic aorta is within normal limits. There is no significant shift of the interventricular septum. PARTIALLY VISUALIZED UPPERMOST ABDOMEN: Gallstone noted in the gallbladder neck. No obvious gallblad ivone wall edema. The entire gallbladder is not included in the field of view. No adrenal masses. No splenomegaly OSSEOUS: No significant osseous lesions.Fusion plate in the lower cervical spine noted.. IMPRESSION: 1. No evidence of acute pulmonary emboli. 2. Scattered bilateral infiltrates, probably infectious; largest of these in the peripheral aspect of the right upper lobe. No associated pleural effusions and there is no significant intrathoracic blake nopathy evident. 3. Cholelithiasis incidentally noted. RADIATION DOSE DELIVERED: 765.2mGy.cm Total DLP DATA REPOSITORY: All CT scans at this facility are submitted to the National Radiology Data Registry (NRDR) Dose Index Registry (DIR) with the [employer] (A[employer]). RADIATION OPTIMIZATION: All CT scans at this facility use at least one of these dose optimization te chniques: automated exposure control; mA and/or kV adjustment per patient size (includes targeted exa ms where dose is matched to clinical indication); or iterative reconstruction.
[2021-03-06 18:51] LABS: COVID-19 PCR Negative (Negative)
[2021-03-06] MEDS: Omnipaque 350 MG/ML 100 ML BTL IV (19:09)
[2021-03-06] MEDS: Normal Saline - Diluent 50 ML VIAL IV (19:10)
[2021-03-06] MEDS: Normal Saline Flush 10 ML SYR IVP ×2 (19:10→23:02)
--- NOTE | 2021-03-06 19:35 | DI.VRAD_ITS ---
PROCEDURE INFORMATION: Exam: CTA Chest With Contrast Exam date and time: 03/06/2021 7:08 PM Age: 55 years old Clinical indication: Other: SOB, HX copd, elevated dimer TECHNIQUE: Imaging protocol: Computed tomographic angiography of the chest with contrast. 3D rendering (Not supervised by radiologist): MIP and/or 3D reconstructed images were created by the technologist. Radiation optimization: All CT scans at this facility use at least one of these dose optimization techniques: automated exposure control; mA and/or kV adjustment per patient size (includes targeted exams where dose is matched to clinical indication); or iterative reconstruction. Contrast material: OMNIPAQUE 350; Contrast volume: 100 ml; Contrast route: INTRAVENOUS (IV); COMPARISON: CT CHEST PE CTA 01/26/2020 7:27 PM FINDINGS: Pulmonary arteries: No evidence of pulmonary embolus to the segmental level and subsegmental level in some cases Aorta: Unremarkable. No aortic aneurysm. No aortic dissection. Lungs: Mild bilateral atelectasis. Some patchy airspace opacities are seen scattered and worst in the right upper lobe. Pleural spaces: Unremarkable. No pneumothorax. No pleural effusion. Heart: Mild cardiac enlargement. Lymph nodes: Unremarkable. No enlarged lymph nodes. Gallbladder and bile ducts: Gallstones again noted. Bones/joints: Unremarkable. No acute fracture. Soft tissues: Unremarkable. IMPRESSION: 1. No evidence of pulmonary embolus 2. Mild scattered airspace opacities may represent infection Dictated and Authenticated by: Cuong Lee MD. Ordering:PHIL Ferrera MD
[2021-03-06] MEDS: DOXYCYCLINE 100 MG in Normal Saline 100 ML IVPB (20:26)
--- NOTE | 2021-03-06 20:45 | RT.EKG_ITS ---
APPROVED REPORT Exam: Resting ECG Reason for Exam: sob Patient Location: E HR:80 bpm ECG Measurements Heart Rate 80 AXIS TX 179 P 34 QRSd 91 QRS 9 QT 391 T 57 QTc 452 Conclusion Sinus rhythm...normal P axis, V-rate 60- 99 Normal [place] I have reviewed and interpreted ECG and agree with software generated interpretation. There are no significant changes compared to prior EKG performed on 03/06/2021 at 17:27.
[2021-03-06 20:48] LABS: Troponin I < 0.05 ng/mL (<0.06)
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
[2021-03-06] MEDS: Atorvastatin 40 MG TAB PO (23:02)
[2021-03-06] MEDS: traZODone 100 MG TAB PO (23:03)
[2021-03-06] MEDS: cefTRIAXone 1 GM/50 ML BAG IVPB (23:03)
[2021-03-06] MEDS: Enoxaparin 40 MG/0.4 ML SYR SC (23:03)
[2021-03-06] MEDS: Docusate Sodium 100 MG CAP PO (23:03)
[2021-03-06] MEDS: Normal Saline 500 ML 30 ML IV (23:04)
[2021-03-06] MEDS: Insulin Aspart 300 UNITS/3 ML PEN SC (23:42)
[2021-03-07] VITALS (17 sets, daily range): BP systolic 117–152; BP diastolic 74–89; PULSE 68–93; RESP 1–20; TEMP 36.6–37.4; O2SAT 86–95
[2021-03-07 00:44] LABS: Troponin I < 0.05 ng/mL (<0.06)
[2021-03-07] MEDS: methylPREDNISolone SUCC 125 MG VIAL 80 MG IVP ×3 (02:16→18:21)
[2021-03-07 07:38] LABS: Abs Immature Grans 0.48 10^3/uL (0.0-0.06); Absolute Basophil Count 0.03 10^3/uL (0.0-0.2); Absolute Lymphocyte Count 1.02 10^3/uL (1.2-3.4); Absolute Neutrophil Count 11.24 10^3/uL (1.2-6.7); Basophils % 0.2; HCT 36.5 % (36.0-46.0); Immature Grans % 3.7; Lymphocytes % 7.9; MCH 26.7 pg (27.0-33.0); MCHC 30.1 % (32.0-36.0); MCV 88.6 fL (80-95); MPV 10.3 fL (8.0-11.0); Monocytes % 0.8; Neutrophils % 87.4; Nucleated RBC 0 %; Platelet Count 223 10^3/uL (130-400); RBC 4.12 10^6/uL (3.93-5.22); RDW 15.8 % (11.7-14.6); RDW-SD 50.4 fL; WBC 12.86 10^3/uL (4.4-10.8)
[2021-03-07] MEDS: Insulin Aspart 300 UNITS/3 ML PEN SC ×4 (07:47→22:12)
[2021-03-07] MEDS: Omeprazole 20 MG CAPCR PO (07:48)
[2021-03-07] MEDS: Aspirin E.C. 81 MG TABEC PO (07:48)
[2021-03-07] MEDS: DOXYCYCLINE 100 MG in Normal Saline 100 ML IVPB ×2 (07:48→20:11)
[2021-03-07] MEDS: amLODIPine 10 MG TAB PO (07:48)
[2021-03-07] MEDS: ALPRAZolam 0.5 MG TAB PO ×3 (07:49→20:10)
[2021-03-07] MEDS: Potassium Chloride 20 MEQ TABCR PO ×2 (07:49→20:11)
[2021-03-07 07:59] LABS: ALT 19 U/L (14-59); AST 13 U/L (15-37); Albumin 3.4 g/dL (3.4-5.0); Alkaline Phosphatase 153 U/L (46-116); Anion Gap 6.7 mmol/L (3-11); BUN 11 mg/dL (7-18); Bilirubin, Total 0.4 mg/dL (0.2-1.0); CO2 32.3 mmol/L (21.0-32.0); Calcium 9.1 mg/dL (8.5-10.1); Chloride 104 mmol/L (98-107); Estimated GFR 57.56 (mL/min/1.73m2); Glucose 175 mg/dL (74-106); Magnesium 1.8 mg/dL (1.8-2.4); Sodium 143 mmol/L (136-145); Total Protein 7.7 g/dL (6.4-8.2)
[2021-03-07 08:02] LABS: Troponin I < 0.05 ng/mL (<0.06)
[2021-03-07] MEDS: Mirabegron 50 MG TABCR PO (08:26)
[2021-03-07] MEDS: Magnesium Lactate-SR 84 MG TABCR PO ×2 (08:26→20:11)
[2021-03-07] MEDS: Propranolol 40 MG TAB PO ×2 (08:27→20:10)
[2021-03-07] MEDS: Normal Saline Flush 10 ML SYR IVP ×3 (08:30→20:11)
--- NOTE | 2021-03-07 11:01 | RESPIRATORY ---
RT spoke with Pt's home DME ([facility] [employer] [phone]), her current home prescription is Max IPAP [id number] / Min EPAP 18 cmH2O, PS 4cmH2O, no O2 bleed in. Pt currently has, and owns outright, a Respironics DreamStation unit that is being recalled and is not allowed to use in the hospital. Pt stated that she is currently waiting on her replacement unit to arrive. While admitted here, RT department will offer pt our [facility] BiPAP unit.
--- NOTE | 2021-03-07 11:49 | W.PM.PROGNOT ---
Date of Service Date of service: 03/07/21 Time of Service: 11:49 Assessment and Plan Assessment and plan (1) Pneumonia: Status: Acute Assessment and plan: Continue Rocephin and doxycycline day 2/5 to treat CAP She is not on chronic O2 supplement at home, wean as able. continue duonebs qid, add mucinex. Qualifiers: Pneumonia type: due to unspecified organism Laterality: right Lung location: upper lobe of lung Qualified Code(s): J18.9 - Pneumonia, unspecified organism (2) Hypoxia: Status: Acute Assessment and plan: O2 supplementation weaning as tolerated with patient being aggressively treated for asthma exacerbation and pneumonia. (3) RADAMES on CPAP: Status: Chronic Assessment and plan: Patient has not been using her CPAP machine recently but will be offered this treatment during this hospital stay. She should follow-up with pulmonology on this issue. Weight loss would help. (4) CAD (coronary artery disease): Status: Chronic Assessment and plan: stable , with no evidence of acute exacerbation with monitoring while hospitalized. Qualifiers: Coronary Disease-Associated Artery/Lesion type: [place] artery [place] vs. transplanted heart: [place] heart Associated angina: without angina Qualified Code(s): I25.10 - Atherosclerotic heart disease of [place] coronary artery without angina pectoris (5) COPD (chronic obstructive pulmonary disease): Status: Chronic Assessment and plan: Continue current inhalers and IV steroids acutely for exacerbation which may exacerbate her hyperglycemia. Qualifiers: COPD type: COPD with acute lower respiratory infection Qualified Code(s): J44.0 - Chronic obstructive pulmonary disease with (acute) lower respiratory infection (6) Diabetes type 2, controlled: Status: Chronic Assessment and plan: Patient has history of prediabetes now being treated for type 2 diabetes with glucometers before meals and at bedtime and short acting insulin during her hospital stay. This may be exacerbated by IV steroids for exacerbation of asthma/COPD. hemoglobin A1C in October of 2020 was 6.7. will recheck. 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 care management following discussed with DR Sheppard Subjective Subjective Patient reports: no new complaints, feels better, tolerating liquids well, shortness of breath and afebrile Interval history since last seen: still with oxygen requirements, coughing with productive cough. Exam Const General: cooperative, comfortable and no acute distress Nutritional Appearance: obese Orientation: alert, awake and oriented x3 HENMT Head: normal to inspection, normocephalic and atraumatic Mouth: oral mucosae normal Resp Effort & Inspection: normal respiratory effort Auscultation: diminished lung sounds bilaterally, no rhonchi and no wheezes Cardio Rate: regular rate Rhythm: regular rhythm GI Inspection: normal to inspection and obesity Palpation: soft Auscultation: normal bowel sounds Skin General skin exam: no rashes or lesions noted Neuro General: patient alert, patient awake, patient oriented x3 and no focal motor deficits Cognition: normal cognition Speech: speech normal Extrem General: normal to inspection, full ROM and pedal edema Objective Last Vital Signs Temp 37.4 C 03/07/21 11:17 Pulse 68 03/07/21 11:17 Resp 20 03/07/21 11:17 BP 137/83 03/07/21 11:17 Pulse Ox 93 03/07/21 09:00 Laboratory Results - last 24 hr 03/06/21 03/06/21 03/06/21 17:40 17:40 17:40 WBC 11.53 H RBC 4.01 Hgb 10.6 L Hct 36.2 MCV 90.3 MCH 26.4 L MCHC 29.3 L RDW 16.0 H Plt Count 205 MPV 10.2 Immature Gran % 2.2 Neutrophils % 69.9 Lymphocytes % 19.1 Monocytes % 5.3 Eosinophils % 3.0 Basophils % 0.5 Nucleated RBC % 0 Absolute Neutrophils 8.06 H Absolute Lymphocytes 2.20 Absolute Monocytes 0.61 Absolute Eosinophils 0.35 Absolute Basophils 0.06 D-Dimer Sodium 144 Potassium 3.7 Chloride 104 Carbon Dioxide 32.9 H Anion Gap 7.1 BUN 14 Creatinine 1.1 H Estimated GFR/1.73 m2 51.57 Glucose 139 H Calcium 8.7 Magnesium 1.7 L Total Bilirubin 0.4 AST 13 L ALT 21 Alkaline Phosphatase 154 H Troponin I < 0.05 NT-Pro-B Natriuret Pep 394 H Total Protein 7.8 Albumin 3.6 COVID-19 Source SARS-CoV-2 (PCR) 03/06/21 03/06/21 03/06/21 17:40 17:43 20:28 WBC RBC Hgb Hct MCV MCH MCHC RDW Plt Count MPV Immature Gran % Neutrophils % Lymphocytes % Monocytes % Eosinophils % Basophils % Nucleated RBC % Absolute Neutrophils Absolute Lymphocytes Absolute Monocytes Absolute Eosinophils Absolute Basophils D-Dimer 983 H Sodium Potassium Chloride Carbon Dioxide Anion Gap BUN Creatinine Estimated GFR/1.73 m2 Glucose Calcium Magnesium Total Bilirubin AST ALT Alkaline Phosphatase Troponin I < 0.05 NT-Pro-B Natriuret Pep Total Protein Albumin COVID-19 Source Nasal/Nares SARS-CoV-2 (PCR) Negative 03/07/21 03/07/21 03/07/21 00:20 07:23 07:23 WBC 12.86 H RBC 4.12 Hgb 11.0 L Hct 36.5 MCV 88.6 MCH 26.7 L MCHC 30.1 L RDW 15.8 H Plt Count 223 MPV 10.3 Immature Gran % 3.7 Neutrophils % 87.4 Lymphocytes % 7.9 Monocytes % 0.8 Eosinophils % 0.0 Basophils % 0.2 Nucleated RBC % 0 Absolute Neutrophils 11.24 H Absolute Lymphocytes 1.02 L Absolute Monocytes 0.10 Absolute Eosinophils 0.00 Absolute Basophils 0.03 D-Dimer Sodium 143 Potassium 4.0 Chloride 104 Carbon Dioxide 32.3 H Anion Gap 6.7 BUN 11 Creatinine 1.0 Estimated GFR/1.73 m2 57.56 Glucose 175 H Calcium 9.1 Magnesium 1.8 Total Bilirubin 0.4 AST 13 L ALT 19 Alkaline Phosphatase 153 H Troponin I < 0.05 < 0.05 NT-Pro-B Natriuret Pep Total Protein 7.7 Albumin 3.4 COVID-19 Source SARS-CoV-2 (PCR)
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
[2021-03-07] MEDS: Albuterol/Ipratropium 3 ML UPD VIAL UPD ×3 (12:18→20:10)
[2021-03-07 12:20] LABS: Hemoglobin A1C 6.7 % (<5.7)
[2021-03-07] MEDS: guaiFENesin 600 MG TABCR PO ×2 (12:31→20:10)
--- NOTE | 2021-03-07 16:20 | CHAPLAIN ---
I had a short visit with Na, She said she is touch with her kids, who are upset with her because she didn't notify them that she was admitted last night.
[2021-03-07] MEDS: Docusate Sodium 100 MG CAP PO (20:11)
[2021-03-07] MEDS: cefTRIAXone 1 GM/50 ML BAG IVPB (22:11)
[2021-03-07] MEDS: Enoxaparin 40 MG/0.4 ML SYR SC (22:13)
[2021-03-07] MEDS: Atorvastatin 40 MG TAB PO (22:14)
[2021-03-07] MEDS: traZODone 100 MG TAB PO (22:14)
[2021-03-07] MEDS: Lidocaine 5% Patch 1 PATCH TP (23:34)
[2021-03-08] VITALS (13 sets, daily range): BP systolic 124–136; BP diastolic 64–87; PULSE 60–103; RESP 1–28; TEMP 36.7–37.4; O2SAT 85–96
[2021-03-08] MEDS: methylPREDNISolone SUCC 125 MG VIAL 80 MG IVP ×2 (02:32→10:18)
[2021-03-08] MEDS: Normal Saline Flush 10 ML SYR IVP (02:33)
[2021-03-08] MEDS: Propranolol 40 MG TAB PO ×2 (08:17→20:13)
[2021-03-08] MEDS: Omeprazole 20 MG CAPCR PO (08:17)
[2021-03-08] MEDS: amLODIPine 10 MG TAB PO (08:17)
[2021-03-08] MEDS: Magnesium Lactate-SR 84 MG TABCR PO ×2 (08:18→20:14)
[2021-03-08] MEDS: Aspirin E.C. 81 MG TABEC PO (08:18)
[2021-03-08] MEDS: guaiFENesin 600 MG TABCR PO ×2 (08:18→20:13)
[2021-03-08] MEDS: Insulin Aspart 300 UNITS/3 ML PEN SC ×4 (08:18→21:35)
[2021-03-08] MEDS: Potassium Chloride 20 MEQ TABCR PO ×2 (08:18→20:14)
[2021-03-08] MEDS: ALPRAZolam 0.5 MG TAB PO ×3 (08:18→20:14)
[2021-03-08] MEDS: Mirabegron 50 MG TABCR PO (08:18)
[2021-03-08] MEDS: Albuterol/Ipratropium 3 ML UPD VIAL UPD ×4 (08:23→20:13)
[2021-03-08] MEDS: DOXYCYCLINE 100 MG in Normal Saline 100 ML IVPB ×2 (08:24→20:14)
--- NOTE | 2021-03-08 08:55 | PDOC.CMPRO ---
- If Service Date Differs Date of service: 03/08/21 Time of Service: 08:55 Care Management Progress Note S/O: Na remains inpatient at this time, she continues to be closely monitored and per RT is showing progress with respiratory status and may be able to return home without orders for new home O2; CM continues to follow. A: 55 year old female admitted to [facility] 03/06/21 for Pneumonia, Hypoxemia, RADAMES, Obesity P: Na remains inpatient at this time, anticipate she will return home when ready per MD and follow up with her PCP and plan of care as prescribed. She will transport via private vehicle with family. CM continues to follow.
--- NOTE | 2021-03-08 11:35 | DM INPTCON_ITS ---
Date of service: 03/08/21 Time of Service: 11:35 Diabetes Inpatient Consult DESCRIPTION/ASSESSMENT: 55 year old female admitted with COPD, PNA with hx of morbid obesity and DM2. Most recent A1c: 6.7%, home DM meds include januvia 100 mg qd. Blood glucose elevated with IV steriods. Dm well controlled with current DM meds when not on steriods. Met with Na today. She reports gaining 100 lbs in last couple of years, interested in information for bariatric surgery. Reviewed process for [facility] [place] [place] bariatric program and encouraged her to follow up with technical publications writer in outpatient setting for weight loss counseling prior to surgery. INTERVENTION: reviewed diet for optimal weight loss Pt to follow up as outpatient in preparation for bariatric surgery at [facility] [place] Provided written information and contact info PLAN: will follow as needed. Time Spent in Nutritional Counseling and Treatment: 15
--- NOTE | 2021-03-08 14:48 | PGE_ITS ---
Date of Service Date of service: 03/08/21 Time of Service: 14:48 Assessment and Plan Assessment and plan (1) Pneumonia: Status: Acute Assessment and plan: Continue Rocephin and doxycycline day 3/5 to treat CAP She is not on chronic O2 supplement at home, wean as able. continue duonebs qid, add mucinex. Qualifiers: Pneumonia type: due to unspecified organism Laterality: right Lung location: upper lobe of lung Qualified Code(s): J18.9 - Pneumonia, unspecified organism (2) Hypoxia: Status: Acute Assessment and plan: O2 supplementation weaning as tolerated with patient being aggressively treated for asthma exacerbation and pneumonia. (3) RADAMES on CPAP: Status: Chronic Assessment and plan: Patient has not been using her CPAP machine recently but will be offered this treatment during this hospital stay. She should follow-up with pulmonology on this issue. Weight loss would help. (4) CAD (coronary artery disease): Status: Chronic Assessment and plan: stable , with no evidence of acute exacerbation with monitoring while hospitalized. Qualifiers: Coronary Disease-Associated Artery/Lesion type: [place] artery [place] vs. transplanted heart: [place] heart Associated angina: without angina Qualified Code(s): I25.10 - Atherosclerotic heart disease of [place] coronary artery without angina pectoris (5) COPD (chronic obstructive pulmonary disease): Status: Chronic Assessment and plan: Continue current inhalers and IV steroids acutely for exacerbation which may exacerbate her hyperglycemia. Qualifiers: COPD type: COPD with acute lower respiratory infection Qualified Code(s): J44.0 - Chronic obstructive pulmonary disease with (acute) lower respiratory infection (6) Diabetes type 2, controlled: Status: Chronic Assessment and plan: continue diabetic diet with before meals and at bedtime and short acting insulin during her hospital stay. Anticipate higher blood sugars in setting of IV steroids for exacerbation of asthma. hemoglobin A1C in October of 2020 was 6.7. recheck shows 6.7 again. 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 care management following discussed with DR Sheppard Subjective Subjective Patient reports: no new complaints, feels better, tolerating liquids well, tolerating a regular diet, shortness of breath (with activity, desatting into the mid 80's but recovers) and afebrile Exam Const General: cooperative, comfortable and no acute distress Nutritional Appearance: obese Orientation: alert, awake and oriented x3 HENMT Head: normal to inspection, normocephalic and atraumatic Mouth: oral mucosae normal Resp Effort & Inspection: normal respiratory effort Auscultation: diminished lung sounds bilaterally, no rhonchi and no wheezes Cardio Rate: regular rate Rhythm: regular rhythm GI Inspection: normal to inspection and obesity Palpation: soft Auscultation: normal bowel sounds Skin General skin exam: no rashes or lesions noted Neuro General: patient alert, patient awake, patient oriented x3 and no focal motor deficits Cognition: normal cognition Speech: speech normal Extrem General: normal to inspection, full ROM and pedal edema Objective Last Vital Signs Temp 37.4 C 03/08/21 11:38 Pulse 68 03/08/21 11:38 Resp 18 03/08/21 11:38 BP 125/79 03/08/21 11:38 Pulse Ox 90 L 03/08/21 11:38
--- NOTE | 2021-03-08 16:20 | RESPIRATORY ---
Spoke with Pt about obtaining new BiPAP and pt stated that she has done all the steps necessary and that she will be receiving a new one at an unknown time.
[2021-03-08] MEDS: traZODone 100 MG TAB PO (21:34)
[2021-03-08] MEDS: Atorvastatin 40 MG TAB PO (21:34)
[2021-03-08] MEDS: Enoxaparin 40 MG/0.4 ML SYR SC (21:38)
[2021-03-08] MEDS: cefTRIAXone 1 GM/50 ML BAG IVPB (21:48)
[2021-03-09] VITALS (7 sets, daily range): BP systolic 132–158; BP diastolic 83–98; PULSE 18–108; RESP 1–24; TEMP 36.4–37; O2SAT 83–94
[2021-03-09 07:32] LABS: Abs Immature Grans 0.31 10^3/uL (0.0-0.06); Absolute Basophil Count 0.03 10^3/uL (0.0-0.2); Absolute Lymphocyte Count 2.98 10^3/uL (1.2-3.4); Absolute Neutrophil Count 11.83 10^3/uL (1.2-6.7); Basophils % 0.2; HCT 33.4 % (36.0-46.0); HGB 9.9 g/dL (11.2-15.7); Immature Grans % 1.9; Lymphocytes % 17.8; MCH 26.9 pg (27.0-33.0); MCHC 29.6 % (32.0-36.0); MCV 90.8 fL (80-95); MPV 10.6 fL (8.0-11.0); Monocytes % 9.4; Neutrophils % 70.7; Nucleated RBC 0 %; Platelet Count 229 10^3/uL (130-400); RBC 3.68 10^6/uL (3.93-5.22); RDW 15.9 % (11.7-14.6); RDW-SD 51.8 fL; WBC 16.73 10^3/uL (4.4-10.8)
[2021-03-09 07:40] LABS: Anion Gap 4.6 mmol/L (3-11); BUN 24 mg/dL (7-18); CO2 33.4 mmol/L (21.0-32.0); CREATININE 0.9 mg/dL (0.55-1.02); Calcium 8.8 mg/dL (8.5-10.1); Chloride 106 mmol/L (98-107); Glucose 121 mg/dL (74-106); Sodium 144 mmol/L (136-145)
[2021-03-09 07:41] LABS: Absolute Monocyte Count 1.57 10^3/uL (0.1-0.8)
[2021-03-09] MEDS: Magnesium Lactate-SR 84 MG TABCR PO (08:36)
[2021-03-09] MEDS: Propranolol 40 MG TAB PO (08:36)
[2021-03-09] MEDS: Aspirin E.C. 81 MG TABEC PO (08:36)
[2021-03-09] MEDS: ALPRAZolam 0.5 MG TAB PO ×2 (08:36→14:16)
[2021-03-09] MEDS: Potassium Chloride 20 MEQ TABCR PO (08:36)
[2021-03-09] MEDS: guaiFENesin 600 MG TABCR PO (08:37)
[2021-03-09] MEDS: predniSONE 20 MG TAB 60 MG PO (08:37)
[2021-03-09] MEDS: amLODIPine 10 MG TAB PO (08:37)
[2021-03-09] MEDS: Mirabegron 50 MG TABCR PO (08:37)
[2021-03-09] MEDS: Omeprazole 20 MG CAPCR PO (08:37)
[2021-03-09] MEDS: DOXYCYCLINE 100 MG in Normal Saline 100 ML IVPB (09:10)
[2021-03-09] MEDS: Albuterol/Ipratropium 3 ML UPD VIAL UPD ×2 (11:53→17:08)
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
[2021-03-09] MEDS: Insulin Aspart 300 UNITS/3 ML PEN SC (12:26)
[2021-03-09] MEDS: Doxycycline Hyclate 100 MG CAP PO (12:29)
--- NOTE | 2021-03-09 13:24 | RESPIRATORY ---
Pt is requiring 1L nc at rest and 2L nc w/ambulation. Order faxed to [facility] for an oxygen conserving device.
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
--- NOTE | 2021-03-09 16:44 | PDOC.CMDIS ---
LACE Index Scoring Tool - Questions: Length of Stay (in days): 1 Acuity (Admit via E.D.?): Yes Comorbidities: Diabetes w/o Complication E.D. Visits: 3 - Answers: Total Score: 8 Risk of Readmission: Low Risk Care Management Discharge Reason for Hospitalization: Pneumonia, Hypoxemia, RADAMES, Obesity Discharge Plan: Na will return home when ready per MD and follow up with her PCP and plan of care as prescribed. Per RT she will have new O2 through [facility]. She will transport via private vehicle with family. Patient/Family Education Needs: Review discharge instructions, discuss Ask Me Three. Services Needed at Discharge: DME Agency (New O2)
== END 2021-03-09 17:38 | disposition home or self-care (01) | DRG 190 ==
LOC: ER 21:11 → MS 22:15
PROVIDERS: Nurse Practitioner Acute Care; Admitting Provider Family Medicine; Emergency Provider Registered Nurse Emergency; PCP Internal Medicine; Visit Provider Family Medicine
DX: J44.0 Chronic obstructive pulmonary disease with (acute) lower respiratory infection (principal); J18.9 Pneumonia, unspecified organism; Z68.43 Body mass index [BMI] 50.0-59.9, adult; R09.02 Hypoxemia; G47.33 Obstructive sleep apnea (adult) (pediatric); I25.10 Atherosclerotic heart disease of native coronary artery without angina pectoris; E11.9 Type 2 diabetes mellitus without complications; Z79.84 Long term (current) use of oral hypoglycemic drugs; E66.01 Morbid (severe) obesity due to excess calories; Z77.22 Contact with and (suspected) exposure to environmental tobacco smoke (acute) (chronic); F41.9 Anxiety disorder, unspecified; F32.9 Major depressive disorder, single episode, unspecified; G89.29 Other chronic pain; M54.5 Low back pain; K21.9 Gastro-esophageal reflux disease without esophagitis; G44.89 Other headache syndrome; M10.9 Gout, unspecified; I25.2 Old myocardial infarction; I10 Essential (primary) hypertension; E78.5 Hyperlipidemia, unspecified; E83.42 Hypomagnesemia; I27.20 Pulmonary hypertension, unspecified; M48.02 Spinal stenosis, cervical region; Z20.822 Contact with and (suspected) exposure to COVID-19
CPT/HCPCS: 36415; 71275; 80048; 80053; 87635; 93005; 94618; 94640; 96365; 96375; 97110; 97161; 99285; J1650; 71045; 83036; 83735; 83880; 84484; 85025; 85379; 93010; 94667; 99226; 99233; 99239; G0378; J0696; J2930; J3490; J7512; J7620

== ENCOUNTER 2021-05-15 15:32 | Inpatient (IN) | payer MEDICAID, SELFPAY ==
[2021-05-15] VITALS (9 sets, daily range): BP systolic 133–149; BP diastolic 76–91; PULSE 101–117; RESP 17–24; TEMP 36.3–37.5; O2SAT 92–99
[2021-05-15] MEDS: Lactated Ringers 500 ML 1000 ML IV (16:47)
[2021-05-15 16:50] LABS: Abs Immature Grans 0.24 10^3/uL (0.0-0.06); Absolute Eosinophil Count 0.08 10^3/uL (0.0-0.7); Absolute Monocyte Count 2.09 10^3/uL (0.1-0.8); Basophils % 0.3; Eosinophils % 0.4; HCT 33.2 % (36.0-46.0); HGB 10.1 g/dL (11.2-15.7); Immature Grans % 1.3; Lymphocytes % 5.4; MCH 25.9 pg (27.0-33.0); MCHC 30.4 % (32.0-36.0); MCV 85.1 fL (80-95); MPV 10.1 fL (8.0-11.0); Neutrophils % 81.6; Nucleated RBC 0 %; Platelet Count 196 10^3/uL (130-400); RDW 16.4 % (11.7-14.6); RDW-SD 50.9 fL; WBC 19.04 10^3/uL (4.4-10.8)
[2021-05-15 16:51] LABS: Absolute Basophil Count 0.06 10^3/uL (0.0-0.2); Absolute Lymphocyte Count 1.03 10^3/uL (1.2-3.4); Absolute Neutrophil Count 15.54 10^3/uL (1.2-6.7)
[2021-05-15 16:55] LABS: Lactate 2.3 mmol/L (0.6-1.4)
[2021-05-15 17:05] LABS: ALT 15 U/L (14-59); AST 15 U/L (15-37); Albumin 2.9 g/dL (3.4-5.0); Alkaline Phosphatase 176 U/L (46-116); Anion Gap 6.2 mmol/L (3-11); BUN 13 mg/dL (7-18); Bilirubin, Total 0.9 mg/dL (0.2-1.0); CO2 33.8 mmol/L (21.0-32.0); CREATININE 1.7 mg/dL (0.55-1.02); Chloride 99 mmol/L (98-107); Glucose 180 mg/dL (74-106); Sodium 139 mmol/L (136-145); Total Protein 7.8 g/dL (6.4-8.2)
[2021-05-15 17:08] LABS: Potassium 2.7 mmol/L (3.5-5.1)
[2021-05-15 17:09] LABS: Diff Comment Agrees w/ Instrument
[2021-05-15 17:10] LABS: Anisocytosis 1+; Hypochromasia 1+; Microcytosis 1+; Polychromasia Present
[2021-05-15 17:33] LABS: Source Nasal/Nares
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
[2021-05-15] MEDS: cefTRIAXone 2 GM/50 ML BAG IVPB (18:25)
[2021-05-15] MEDS: POTASSIUM CHLORIDE 20 MEQ/100 ML BAG 50 MEQ IVPB (18:26)
[2021-05-15] MEDS: Potassium Chloride 20 MEQ TABCR PO (18:27)
[2021-05-15] MEDS: Normal Saline Flush 10 ML SYR IVP (18:27)
[2021-05-15 18:31] LABS: COVID-19 PCR Negative (Negative)
--- NOTE | 2021-05-15 18:45 | DI.CT_ITS ---
Exam(s) CT RENAL COLIC WO EXAM: CT RENAL COLIC WO CLINICAL HISTORY: right flank pain, prior stone. TECHNIQUE: Imaging Protocol: Axial computed tomography images with coronal and sagittal reformatted images were created and reviewed. COMPARISON: CT CT CHEST PE CTA from 03/06/2021 FINDINGS: Examination is limited by patient body habitus. ABDOMEN: Lung Bases: Scarring in the lung bases. Liver: Normal density. No measurable mass. Gallbladder and biliary tract: Cholelithiasis. No biliary ductal dilatation. Pancreas: Normal density, no abnormal calcifications or inflammatory process. Spleen: Normal. Kidneys: Normal size, contour and axis.No radiodense stones or obstructive uropathy. No masses seen. The distal ureters and urinary bladder are limited due to the artifact from the patient's bilateral t otal hip replacements. Adrenal glands: No mass is seen. Lymph nodes: Within normal limits. Abdominal Aorta: Abdominal portion non-dilated. Atherosclerosis. PELVIS: Bladder:The urinary bladder is largely obscured by artifact from the patient's bilateral total hip re placements. Bowel: No obstruction or bowel wall thickening. No evidence of appendicitis. Peritoneal cavity: No ascites, collection or mesenteric inflammatory response. No free air. Reproductive organs: There is an IUD in position. Bones: Bilateral total hip replacements. Prior lumbar spine surgery. Soft Tissues: There is a small fat containing umbilical hernia. IMPRESSION: 1. Examination limited by patient body habitus and bilateral total hip replacements. 2. No evidence of hydronephrosis or nephrolithiasis. 3. Cholelithiasis. RADIATION DOSE DELIVERED: 285.04mGy.cm Total DLP DATA REPOSITORY: All CT scans at this facility are submitted to the National Radiology Data Registry (NRDR) Dose Index Registry (DIR) with the [employer] (A[employer]). RADIATION OPTIMIZATION: All CT scans at this facility use at least one of these dose optimization te chniques: automated exposure control; mA and/or kV adjustment per patient size (includes targeted exa ms where dose is matched to clinical indication); or iterative reconstruction.
[2021-05-15 18:48] LABS: Bilirubin Negative (Negative); Blood Small (Negative); Clarity Sl Cloudy (Clear); Glucose Negative (Negative); Ketones Negative (Negative); Leukocyte Esterase Moderate (Negative); Nitrite Negative (Negative)
[2021-05-15 19:01] LABS: Bacteria Many HPF (Negative); C & S Indicated? Yes; Crystals Negative HPF (Negative); Epithelial Cells Few HPF (Negative); Mucus Negative (Negative); Other Cells Mod Transitional (Negative); RBC 0-2 HPF (0-2); WBC >50 HPF (0-5)
--- NOTE | 2021-05-15 20:22 | DI.VRAD_ITS ---
PROCEDURE INFORMATION: Exam: CT Abdomen And Pelvis Without Contrast Exam date and time: 05/15/2021 7:00 PM Age: 55 years old Clinical indication: Other: Right flank pain, prior stone; Prior surgery TECHNIQUE: Imaging protocol: Computed tomography of the abdomen and pelvis without contrast. Total images: 1279 Radiation optimization: All CT scans at this facility use at least one of these dose optimization techniques: automated exposure control; mA and/or kV adjustment per patient size (includes targeted exams where dose is matched to clinical indication); or iterative reconstruction. COMPARISON: US ABDOMEN LIMITED 10/28/2019 1:00 PM FINDINGS: Liver: Normal. No mass. Gallbladder and bile ducts: There are gallstones in the gallbladder. Pancreas: Normal. No ductal dilation. Spleen: Normal. No splenomegaly. Adrenal glands: Normal. No mass. Kidneys and ureters: No renal, ureteral or bladder calculi. No hydronephrosis or hydroureter. Stomach and bowel: Unremarkable. No obstruction. No mucosal thickening. Appendix: No evidence of appendicitis. Intraperitoneal space: Unremarkable. No free air. No significant fluid collection. Vasculature: Unremarkable. No abdominal aortic aneurysm. Lymph nodes: Unremarkable. No enlarged lymph nodes. Urinary bladder: Unremarkable. Reproductive: There is an IUD in the uterus. Bones/joints: There is a right total hip arthroplasty. There is a left total hip arthroplasty. There is an L5-S1 interbody spacer. Soft tissues: There is a small fat containing umbilical hernia. IMPRESSION: 1. Cholelithiasis. 2. No renal, ureteral or bladder calculi. No hydronephrosis or hydroureter. Dictated and Authenticated by: Duglas Matos MD. Ordering:JOSE Mcclain MD
[2021-05-15 21:03] LABS: Lactate 1.1 mmol/L (0.6-1.4)
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
[2021-05-15 21:13] LABS: Anion Gap 7.2 mmol/L (3-11); BUN 12 mg/dL (7-18); CO2 32.8 mmol/L (21.0-32.0); CREATININE 1.5 mg/dL (0.55-1.02); Calcium 8.7 mg/dL (8.5-10.1); Chloride 99 mmol/L (98-107); Estimated GFR 36.05 (mL/min/1.73m2); Glucose 135 mg/dL (74-106); Potassium 3.1 mmol/L (3.5-5.1); Sodium 139 mmol/L (136-145)
[2021-05-15 21:23] LABS: Magnesium 1.7 mg/dL (1.8-2.4)
[2021-05-15] MEDS: Atorvastatin 40 MG TAB PO (21:42)
[2021-05-15] MEDS: Enoxaparin 30 MG/0.3 ML SYR SC (21:42)
[2021-05-15] MEDS: traZODone 100 MG TAB PO (21:46)
[2021-05-15] MEDS: Lactated Ringers 1,000 ML 150 ML IV (22:00)
[2021-05-15] MEDS: Acetaminophen 325 MG TAB 500 MG PO (22:35)
[2021-05-15] MEDS: Acetaminophen 500 MG TAB (22:40)
[2021-05-16] VITALS (10 sets, daily range): BP systolic 106–142; BP diastolic 68–86; PULSE 70–410; RESP 17–20; TEMP 36.3–37.4; O2SAT 94–96
[2021-05-16] MEDS: Lactated Ringers 1,000 ML 150 ML IV ×3 (05:08→20:14)
[2021-05-16 07:11] LABS: Abs Immature Grans 0.32 10^3/uL (0.0-0.06); Absolute Basophil Count 0.07 10^3/uL (0.0-0.2); Absolute Lymphocyte Count 1.38 10^3/uL (1.2-3.4); Absolute Monocyte Count 1.74 10^3/uL (0.1-0.8); Basophils % 0.4; Eosinophils % 1.2; HCT 31.4 % (36.0-46.0); HGB 9.5 g/dL (11.2-15.7); Immature Grans % 1.9; Lymphocytes % 8.4; MCH 26.2 pg (27.0-33.0); MCHC 30.3 % (32.0-36.0); MCV 86.7 fL (80-95); MPV 10.1 fL (8.0-11.0); Monocytes % 10.6; Neutrophils % 77.5; Nucleated RBC 0 %; Platelet Count 186 10^3/uL (130-400); RBC 3.62 10^6/uL (3.93-5.22); RDW 16.4 % (11.7-14.6); RDW-SD 52.3 fL; WBC 16.42 10^3/uL (4.4-10.8)
[2021-05-16 07:17] LABS: Absolute Neutrophil Count 12.73 10^3/uL (1.2-6.7)
[2021-05-16 07:28] LABS: ALT 13 U/L (14-59); AST 15 U/L (15-37); Albumin 2.4 g/dL (3.4-5.0); Alkaline Phosphatase 167 U/L (46-116); Anion Gap 2.2 mmol/L (3-11); BUN 11 mg/dL (7-18); Bilirubin, Total 0.6 mg/dL (0.2-1.0); CO2 34.8 mmol/L (21.0-32.0); CREATININE 1.4 mg/dL (0.55-1.02); Calcium 8.5 mg/dL (8.5-10.1); Chloride 103 mmol/L (98-107); Estimated GFR 39.04 (mL/min/1.73m2); Glucose 201 mg/dL (74-106); Magnesium 1.9 mg/dL (1.8-2.4); Sodium 140 mmol/L (136-145)
[2021-05-16 07:30] LABS: Anisocytosis 1+; Diff Comment Diff Reviewed
[2021-05-16 07:33] LABS: Potassium 2.9 mmol/L (3.5-5.1)
[2021-05-16] MEDS: amLODIPine 10 MG TAB PO (07:48)
[2021-05-16] MEDS: Loratidine 10 MG TAB PO (07:48)
[2021-05-16] MEDS: Docusate Sodium 100 MG CAP PO ×2 (07:48→20:27)
[2021-05-16] MEDS: Omeprazole 20 MG CAPCR PO (07:49)
[2021-05-16] MEDS: ALPRAZolam 0.5 MG TAB PO ×3 (07:49→20:27)
[2021-05-16] MEDS: Mirabegron 50 MG TABCR PO (07:49)
[2021-05-16] MEDS: Potassium Chloride 10 MEQ TABCR 20 MEQ PO ×2 (07:49→20:26)
[2021-05-16] MEDS: Aspirin E.C. 81 MG TABEC PO (07:49)
[2021-05-16] MEDS: Magnesium Lactate-SR 84 MG TABCR PO ×2 (07:49→20:27)
[2021-05-16] MEDS: Propranolol 40 MG TAB PO ×2 (07:49→20:27)
[2021-05-16] MEDS: Potassium Chloride 20 MEQ TABCR 40 MEQ PO ×3 (08:26→20:26)
[2021-05-16] MEDS: Budesonide/Formoterol 80/4.5 6.9 GM 60 PUFF INH IH ×2 (08:45→20:28)
[2021-05-16] MEDS: Tiotropium Bromide-Respimat 10 PUFF INH 2 PUFF IH (08:46)
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
[2021-05-16] MEDS: Normal Saline Flush 10 ML SYR IVP (09:58)
[2021-05-16] MEDS: cefTRIAXone 2 GM/50 ML BAG IVPB (09:58)
[2021-05-16] MEDS: Normal Saline 500 ML 30 ML IV (09:58)
--- NOTE | 2021-05-16 11:37 | W.PM.PROGNOT ---
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 mag repleted and normalized. discussed with Dr Sheppard Subjective Subjective Patient reports: still having pain and tolerating liquids well Interval history since last seen: max temp overnight of 37.4 no new c/o, still have some flank pain. Exam Const General: cooperative and no acute distress HENMT Head: normocephalic and atraumatic Eyes Conjunctivae: normal conjunctivae Sclera: normal sclerae Neck Neck: trachea midline and supple Resp Auscultation: clear to auscultation bilaterally, no rales, no rhonchi and no wheezes Cardio Rate: regular rate and not tachycardic Rhythm: regular rhythm GI Palpation: soft, not firm, no guarding, no masses, not rigid and nontender Back/Spine/Pelvis Back: CVA tenderness (rt) Skin General skin exam: no rashes or lesions noted Neuro General: patient alert, patient awake, patient oriented x3 and tone normal Extrem General: no edema Psych Appearance: grossly normal Mental Status: mental status grossly normal Speech and Movement: speech and movement normal Objective Last Vital Signs Temp 36.3 C L 05/16/21 08:13 Pulse 91 H 05/16/21 08:13 Resp 19 05/16/21 08:13 BP 126/82 05/16/21 08:13 Pulse Ox 95 05/16/21 08:13 Laboratory Results - last 24 hr 05/15/21 05/15/21 05/15/21 16:42 16:42 16:42 WBC 19.04 H RBC 3.90 L Hgb 10.1 L Hct 33.2 L MCV 85.1 MCH 25.9 L MCHC 30.4 L RDW 16.4 H Plt Count 196 MPV 10.1 Immature Gran % 1.3 Neutrophils % 81.6 Lymphocytes % 5.4 Monocytes % 11.0 Eosinophils % 0.4 Basophils % 0.3 Nucleated RBC % 0 Absolute Neutrophils 15.54 H Absolute Lymphocytes 1.03 L Absolute Monocytes 2.09 H Absolute Eosinophils 0.08 Absolute Basophils 0.06 RBC Morphology See Below Polychromasia Present Hypochromasia 1+ Anisocytosis 1+ Microcytosis 1+ VBG Lactate 2.3 H* Sodium 139 Potassium 2.7 L* Chloride 99 Carbon Dioxide 33.8 H Anion Gap 6.2 BUN 13 Creatinine 1.7 H Estimated GFR/1.73 m2 31.20 Glucose 180 H Calcium 9.0 Magnesium 1.7 L Total Bilirubin 0.9 AST 15 ALT 15 Alkaline Phosphatase 176 H Total Protein 7.8 Albumin 2.9 L Urine Color Urine Clarity Urine pH Ur Specific [place] Urine Protein Urine Ketones Urine Blood Urine Nitrite Urine Bilirubin Urine Urobilinogen Ur Leukocyte Esterase Urine RBC Urine WBC Ur Epithelial Cells Urine Crystals Urine Bacteria Urine Mucus Urine Other Ur Culture Indicated? Urine Glucose COVID-19 Source SARS-CoV-2 (PCR) 05/15/21 05/15/21 05/15/21 17:24 18:30 20:50 WBC RBC Hgb Hct MCV MCH MCHC RDW Plt Count MPV Immature Gran % Neutrophils % Lymphocytes % Monocytes % Eosinophils % Basophils % Nucleated RBC % Absolute Neutrophils Absolute Lymphocytes Absolute Monocytes Absolute Eosinophils Absolute Basophils RBC Morphology Polychromasia Hypochromasia Anisocytosis Microcytosis VBG Lactate Sodium 139 Potassium 3.1 L Chloride 99 Carbon Dioxide 32.8 H Anion Gap 7.2 BUN 12 Creatinine 1.5 H Estimated GFR/1.73 m2 36.05 Glucose 135 H Calcium 8.7 Magnesium Total Bilirubin AST ALT Alkaline Phosphatase Total Protein Albumin Urine Color Yellow Urine Clarity Sl Cloudy Urine pH 6.0 Ur Specific [place] 1.010 Urine Protein 100 H Urine Ketones Negative Urine Blood Small H Urine Nitrite Negative Urine Bilirubin Negative Urine Urobilinogen 1.0 H Ur Leukocyte Esterase Moderate H Urine RBC 0-2 Urine WBC >50 H Ur Epithelial Cells Few Urine Crystals Negative Urine Bacteria Many Urine Mucus Negative Urine Other Mod Transitional Ur Culture Indicated? Yes Urine Glucose Negative COVID-19 Source Nasal/Nares SARS-CoV-2 (PCR) Negative 05/15/21 05/16/21 05/16/21 20:50 06:45 06:45 WBC 16.42 H RBC 3.62 L Hgb 9.5 L Hct 31.4 L MCV 86.7 MCH 26.2 L MCHC 30.3 L RDW 16.4 H Plt Count 186 MPV 10.1 Immature Gran % 1.9 Neutrophils % 77.5 Lymphocytes % 8.4 Monocytes % 10.6 Eosinophils % 1.2 Basophils % 0.4 Nucleated RBC % 0 Absolute Neutrophils 12.73 H Absolute Lymphocytes 1.38 Absolute Monocytes 1.74 H Absolute Eosinophils 0.20 Absolute Basophils 0.07 RBC Morphology See Below Polychromasia Hypochromasia Anisocytosis 1+ Microcytosis VBG Lactate 1.1 Sodium 140 Potassium 2.9 L Chloride 103 Carbon Dioxide 34.8 H Anion Gap 2.2 L BUN 11 Creatinine 1.4 H Estimated GFR/1.73 m2 39.04 Glucose 201 H Calcium 8.5 Magnesium 1.9 Total Bilirubin 0.6 AST 15 ALT 13 L Alkaline Phosphatase 167 H Total Protein 7.0 Albumin 2.4 L Urine Color Urine Clarity Urine pH Ur Specific [place] Urine Protein Urine Ketones Urine Blood Urine Nitrite Urine Bilirubin Urine Urobilinogen Ur Leukocyte Esterase Urine RBC Urine WBC Ur Epithelial Cells Urine Crystals Urine Bacteria Urine Mucus Urine Other Ur Culture Indicated? Urine Glucose COVID-19 Source SARS-CoV-2 (PCR)
--- NOTE | 2021-05-16 14:42 | PHA.REVIEW ---
Pharmacy Admission Review - Admission Clinical Review (Last Reviewed 05/15/21 @ 19:10 by Johny Weir MD) Bacteremia due to Gram-negative bacteria (Acute) Cholelithiasis (Acute) Sepsis (Acute) Pyelonephritis (Acute) Acute hypokalemia (Acute) sertraline [From Zoloft] Allergy (Severe, Verified 05/15/21 15:55) Agitation lisinopril Allergy (Intermediate, Verified 05/15/21 15:55) lips swell Resuscitation Status Full Code Height 5 ft Weight 133.81 kg - Renal Dosing Renal Dosing: BUN 11 mg/dL (7-18) 05/16/21 06:45 Creatinine 1.4 mg/dL (0.55-1.02) H 05/16/21 06:45 Medications needing adjustments: Intervened List of meds needing interventions: eCrCl 57.89 using adj bw -- adjusted lmwh dose - Anticoagulation Anticoagulation: Hgb 9.5 g/dL (11.2-15.7) L 05/16/21 06:45 Hct 31.4 % (36.0-46.0) L 05/16/21 06:45 Plt Count 186 10^3/uL (130-400) 05/16/21 06:45 Creatinine 1.4 mg/dL (0.55-1.02) H 05/16/21 06:45 DVT Prophylaxis: Reviewed Medications: Enoxaparin - Opiate Usage Evaluate Pain Scale/Pains Meds: N/A - Relevant Labs Sodium 140 mmol/L (136-145) 05/16/21 06:45 Potassium 2.9 mmol/L (3.5-5.1) L 05/16/21 06:45 Chloride 103 mmol/L (98-107) 05/16/21 06:45 Magnesium 1.9 mg/dL (1.8-2.4) 05/16/21 06:45 Electrolytes, C-Reactive P, ESR: Reviewed - DM Control DM Control: Glucose 201 mg/dL (74-106) H 05/16/21 06:45 Finger Stick Blood Glucose 174 Finger Stick Blood Glucose 174 Finger Stick Blood Glucose 225 Finger Stick Blood Glucose 225 Insulin Dosing: Reviewed (not on any diabetic meds at home, no steroids, will monitor) - BP Control BP Control: Blood Pressure 109/74 Blood Pressure 126/82 Blood Pressure 142/86 Blood Pressure 106/68 If elevated: Reviewed - Qtc Review If Elevated: N/A - IV to PO Switch IV Medications: Reviewed - Home Meds Home Med List reviewed: Intervened Relevent Home Meds Not ordered & why?: reviewed -- Dr. Shook recently started patient on Breztri instead of symbicort + spiriva but we do not have that on formulary so will leave orders as is, med rec is updated accordingly - Current meds Current Medication Order Review: Reviewed (ceftriaxone 2 gm day 2 for GNR bacteremia, pyelonephritis)
[2021-05-16] MEDS: Lurasidone 40 MG TAB PO (20:26)
[2021-05-16] MEDS: Enoxaparin 40 MG/0.4 ML SYR SC (20:28)
[2021-05-16] MEDS: Atorvastatin 40 MG TAB PO (21:55)
[2021-05-16] MEDS: traZODone 100 MG TAB PO (21:55)
[2021-05-16] MEDS: Acetaminophen 500 MG TAB PO (22:06)
[2021-05-17] VITALS (7 sets, daily range): BP systolic 118–130; BP diastolic 68–83; PULSE 71–77; RESP 16–19; TEMP 36.4–36.9; O2SAT 90–96
[2021-05-17] MEDS: Lactated Ringers 1,000 ML 150 ML IV ×2 (02:34→09:08)
[2021-05-17 07:23] LABS: Abs Immature Grans 0.48 10^3/uL (0.0-0.06); Absolute Basophil Count 0.05 10^3/uL (0.0-0.2); Absolute Eosinophil Count 0.48 10^3/uL (0.0-0.7); Absolute Monocyte Count 1.16 10^3/uL (0.1-0.8); Absolute Neutrophil Count 8.17 10^3/uL (1.2-6.7); Basophils % 0.4; Eosinophils % 3.9; HCT 27.5 % (36.0-46.0); HGB 8.2 g/dL (11.2-15.7); Immature Grans % 3.9; Lymphocytes % 16.3; MCH 26.1 pg (27.0-33.0); MCHC 29.8 % (32.0-36.0); MCV 87.6 fL (80-95); MPV 10.9 fL (8.0-11.0); Monocytes % 9.4; Neutrophils % 66.1; Nucleated RBC 0 %; Platelet Count 219 10^3/uL (130-400); RBC 3.14 10^6/uL (3.93-5.22); RDW 16.7 % (11.7-14.6); RDW-SD 53.4 fL; WBC 12.36 10^3/uL (4.4-10.8)
[2021-05-17 07:24] LABS: Absolute Lymphocyte Count 2.01 10^3/uL (1.2-3.4)
[2021-05-17 07:39] LABS: Anion Gap 1.6 mmol/L (3-11); BUN 17 mg/dL (7-18); CO2 33.4 mmol/L (21.0-32.0); CREATININE 1.4 mg/dL (0.55-1.02); Calcium 8.7 mg/dL (8.5-10.1); Chloride 107 mmol/L (98-107); Estimated GFR 39.04 (mL/min/1.73m2); Glucose 138 mg/dL (74-106); Potassium 4.1 mmol/L (3.5-5.1); Sodium 142 mmol/L (136-145)
[2021-05-17 07:46] LABS: Anisocytosis 1+; Diff Comment Diff Reviewed
[2021-05-17] MEDS: Omeprazole 20 MG CAPCR PO (08:18)
[2021-05-17] MEDS: ALPRAZolam 0.5 MG TAB PO ×3 (08:18→20:55)
[2021-05-17] MEDS: amLODIPine 10 MG TAB PO (08:18)
[2021-05-17] MEDS: Docusate Sodium 100 MG CAP PO ×2 (08:18→20:54)
[2021-05-17] MEDS: Mirabegron 50 MG TABCR PO (08:18)
[2021-05-17] MEDS: Aspirin E.C. 81 MG TABEC PO (08:18)
[2021-05-17] MEDS: Loratidine 10 MG TAB PO (08:19)
[2021-05-17] MEDS: Potassium Chloride 10 MEQ TABCR 20 MEQ PO ×2 (08:19→20:55)
[2021-05-17] MEDS: Propranolol 40 MG TAB PO ×2 (08:19→20:55)
[2021-05-17] MEDS: Lactobacillus Acidophilus CAP 1 CAP PO (08:19)
[2021-05-17] MEDS: Magnesium Lactate-SR 84 MG TABCR PO ×2 (08:19→20:55)
[2021-05-17] MEDS: Tiotropium Bromide-Respimat 10 PUFF INH 2 PUFF IH (08:26)
[2021-05-17] MEDS: Budesonide/Formoterol 80/4.5 6.9 GM 60 PUFF INH IH ×2 (08:27→20:56)
--- NOTE | 2021-05-17 08:59 | CMPROGNOTE_ITS ---
Care Management Progress Note S/O: Na remains inpatient at this time, per MD she may require two weeks of IV ABX treatment; anticipate she will follow up at the [facility] Infusion room for treatment, once medically stable for discharge. CM continues to follow. A: 55 year old female admitted to [facility] 05/15/21 for Pyelonephritis, hypokalemia P: Na remains inpatient at this time, anticipate she will return home when ready per MD and follow up with her PCP and plan of care as prescribed. Anticipate if assisted IV ABX required, she will follow up at the [facility] infusion room. She will transport via private vehicle with family. CM continues to follow.
--- NOTE | 2021-05-17 10:04 | PGE_ITS ---
Date of Service Date of service: 05/17/21 Time of Service: 14:55 Assessment and Plan Assessment and plan (1) Bacteremia due to Gram-negative bacteria: Status: Acute Assessment and plan: growing in urine and blood continue ceftriaxone 2 gm IV daily repeat blood culture (2) Pyelonephritis: Status: Acute Assessment and plan: growing gram negative rods, blood and urine (3) Diabetes type 2, controlled: Status: Chronic Assessment and plan: hemoglobin A1C was 6.7 in February 2021 continue diabetic diet, add sliding scale coverage with meals Qualifiers: Diabetes mellitus complication status: without complication Diabetes mellitus extermination inspector insulin use: without extermination inspector use Qualified Code(s): E11.9 - Type 2 diabetes mellitus without complications (4) Acute hypokalemia: Status: Acute Assessment and plan: replete and follow. mag repleted and normalized. discussed with Dr Sheppard Subjective Subjective Patient reports: tolerating liquids well, tolerating a regular diet and afebrile Interval history since last seen: left hip pain which she reports is above her baseline. no fevers Exam Const General: cooperative and no acute distress [facility] Head: normocephalic and atraumatic Eyes Conjunctivae: normal conjunctivae Sclera: normal sclerae Neck Neck: trachea midline and supple Resp Auscultation: clear to auscultation bilaterally, no rales, no rhonchi and no wheezes Cardio Rate: regular rate and not tachycardic Rhythm: regular rhythm GI Palpation: soft, not firm, no guarding, no masses, not rigid and nontender Back/Spine/Pelvis Back: CVA tenderness (rt) Skin General skin exam: no rashes or lesions noted Neuro General: patient alert, patient awake, patient oriented x3 and tone normal Extrem General: no edema Psych Appearance: grossly normal Mental Status: mental status grossly normal Speech and Movement: speech and movement normal Objective Last Vital Signs Temp 36.7 C 05/17/21 07:34 Pulse 71 05/17/21 07:34 Resp 19 05/17/21 07:34 BP 127/79 05/17/21 07:34 Pulse Ox 94 05/17/21 07:34 Laboratory Results - last 24 hr 05/17/21 05/17/21 06:36 06:36 WBC 12.36 H RBC 3.14 L Hgb 8.2 L Hct 27.5 L MCV 87.6 MCH 26.1 L MCHC 29.8 L RDW 16.7 H Plt Count 219 MPV 10.9 Immature Gran % 3.9 Neutrophils % 66.1 Lymphocytes % 16.3 Monocytes % 9.4 Eosinophils % 3.9 Basophils % 0.4 Nucleated RBC % 0 Absolute Neutrophils 8.17 H Absolute Lymphocytes 2.01 Absolute Monocytes 1.16 H Absolute Eosinophils 0.48 Absolute Basophils 0.05 RBC Morphology See Below Anisocytosis 1+ Sodium 142 Potassium 4.1 D Chloride 107 Carbon Dioxide 33.4 H Anion Gap 1.6 L BUN 17 D Creatinine 1.4 H Estimated GFR/1.73 m2 39.04 Glucose 138 H Calcium 8.7
[2021-05-17] MEDS: Normal Saline Flush 10 ML SYR IVP ×2 (10:41→18:48)
[2021-05-17] MEDS: cefTRIAXone 2 GM/50 ML BAG IVPB (10:41)
[2021-05-17] MEDS: Normal Saline 500 ML 30 ML IV (10:41)
--- NOTE | 2021-05-17 14:00 | DI.RAD_ITS ---
Exam(s) XR HIP LT COMPLETE AP PELVIS EXAM: XR HIP LT COMPLETE AP PELVIS CLINICAL HISTORY: left hip pain TECHNIQUE: COMPARISON: CR XR HIP LT COMPLETE AP PELVIS from 10/27/2019 FINDINGS: Three views were obtained. There are total hip replacements in position bilaterally. The components all appear well seated. No other significant acute finding. IMPRESSION: RADIATION DOSE DELIVERED: Total DLP
--- NOTE | 2021-05-17 14:10 | DM INPTCON_ITS ---
Date of service: 05/17/21 Time of Service: 14:10 Diabetes Inpatient Consult DESCRIPTION/ASSESSMENT: 55 yr female admitted for acute hypokalemia, pyelonephritis with DMII as a significant nutrition-related PMH. Pt verbalizes she is unaware of her diabetes dx ? under the impression that she ?is borderline? when asked how long she has been managing it. Pertinent meds - 1000IU Vit D3, Colace, fish oil magnesium lactate, atorvastatin, LD aspirin, lisdexamfetamine. With k+ normalizing per labs and acute situation being addressed, Na?s management of her diabetes and weight should take priority to lower risk factors for future hospitalizations. Current nutrition needs assessed at 1612 kcals (REE X 1.3 PAL), 58-72g protein (.8-1 g/Kg) and 1612 mL fluid (1 mL/kcal). Most recent A1C (6.7 on 03/07/21) consistent with good Glu control. Good PO intake noted. Weight is stable. No physical findings which would impede her intake. Pt states usual diet is one large meal per day (dinner) and skips morning and daytime meals most days. Snacking in the evening, after dinner can be common. Pt interested in bariatric surgery and CGM trial. Admits she has no-showed for 2 appts prior with outpt dietitian. Diagnosis: Excessive energy intake related to nutrition knowledge deficits AEB by BMI >40 (morbid obesity). Food and nutrition-related knowledge deficit related to lack of prior education in diabetes management and CHO counting AEB pt confirming she didn?t know bananas have sugar in them and which type of bread is healthier during our education session. Intervention/evaluation: Reviewed a CHO counting education handout with education focusing on goal of 11 servings of CHO exchanges per day and balancing food choices by adding protein and fiber-rich foods to meals and snacks. Importance of meal planning and eating regular meals stressed during our conversation. Monitoring/evaluation Pt will remain on CHO consistent diet while admitted and will monitor for significant changes in weight, po intake and nutrition-related labs. Will look into eligibility for bariatric surgery (possibly will not be eligible due to Hx of suicide attempt noted in chart). Will contact pt prior to d/c to set up with CGM and outpt nutrition visit to review her Glu trends and provide appropriate education for support. This document created by Brenden Syed NDTR (communications intern). Time Spent in Nutritional Counseling and Treatment: 20
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
--- NOTE | 2021-05-17 19:15 | DI.VRAD_ITS ---
PROCEDURE INFORMATION: Exam: XR Left Hip Exam date and time: 05/17/2021 4:39 PM Age: 55 years old Clinical indication: Hip pain; Left hip; Prior surgery; Surgery date: 6+ months; Surgery type: Hip replacements TECHNIQUE: Imaging protocol: XR Left hip. Views: 2 or 3 views hip with pelvis when performed. COMPARISON: CT RENAL COLIC WO 05/15/2021 7:43 PM FINDINGS: Bones/joints: Bilateral total hip arthroplasties. The left acetabular and femoral components are well seated and aligned. No evidence of acute fracture or dislocation. Soft tissues: Unremarkable. IMPRESSION: No evidence of acute fracture or dislocation. Dictated and Authenticated by: Joni Leon MD. Ordering:HENRY Velasquez MD
[2021-05-17] MEDS: Enoxaparin 40 MG/0.4 ML SYR SC (20:54)
[2021-05-17] MEDS: Lurasidone 40 MG TAB PO (20:54)
[2021-05-17] MEDS: Insulin Aspart 300 UNITS/3 ML PEN SC (21:47)
[2021-05-17] MEDS: traZODone 100 MG TAB PO (21:48)
[2021-05-17] MEDS: Acetaminophen 500 MG TAB PO (21:48)
[2021-05-17] MEDS: Atorvastatin 40 MG TAB PO (21:49)
[2021-05-18 03:25] VITALS: BP 131/81; PULSE 76; RESP 16; TEMP 36.5; O2SAT 93
[2021-05-18 07:38] LABS: Abs Immature Grans 0.73 10^3/uL (0.0-0.06); HCT 29.3 % (36.0-46.0); HGB 8.5 g/dL (11.2-15.7); MCH 25.9 pg (27.0-33.0); MCV 89.3 fL (80-95); MPV 10.2 fL (8.0-11.0); Nucleated RBC 0 %; Platelet Count 236 10^3/uL (130-400); RBC 3.28 10^6/uL (3.93-5.22); RDW 16.6 % (11.7-14.6); RDW-SD 54.5 fL; WBC 10.69 10^3/uL (4.4-10.8)
[2021-05-18 07:55] LABS: ESR 67 mm/hr (0-30)
[2021-05-18] MEDS: ALPRAZolam 0.5 MG TAB PO (08:00)
[2021-05-18] MEDS: Potassium Chloride 10 MEQ TABCR 20 MEQ PO (08:00)
[2021-05-18] MEDS: Magnesium Lactate-SR 84 MG TABCR PO (08:00)
[2021-05-18] MEDS: Omeprazole 20 MG CAPCR PO (08:00)
[2021-05-18] MEDS: Loratidine 10 MG TAB PO (08:00)
[2021-05-18] MEDS: Docusate Sodium 100 MG CAP PO (08:00)
[2021-05-18] MEDS: amLODIPine 10 MG TAB PO (08:00)
[2021-05-18] MEDS: Aspirin E.C. 81 MG TABEC PO (08:00)
[2021-05-18] MEDS: Propranolol 40 MG TAB PO (08:00)
[2021-05-18] MEDS: Lactobacillus Acidophilus CAP 1 CAP PO (08:00)
[2021-05-18] MEDS: Mirabegron 50 MG TABCR PO (08:00)
[2021-05-18] MEDS: Normal Saline Flush 10 ML SYR IVP (08:01)
[2021-05-18] MEDS: Insulin Aspart 300 UNITS/3 ML PEN SC ×2 (08:03→11:54)
[2021-05-18 08:07] LABS: C-Reactive Protein 11.71 mg/dL (0.0-0.3)
[2021-05-18 08:29] VITALS: BP 110/75; PULSE 73; RESP 16; TEMP 36.7; O2SAT 95
[2021-05-18 08:30] LABS: Absolute Eosinophil Count 0.11 10^3/uL (0.0-0.7); Absolute Lymphocyte Count 2.67 10^3/uL (1.2-3.4); Absolute Monocyte Count 0.32 10^3/uL (0.1-0.8); Absolute Neutrophil Count 7.06 10^3/uL (1.2-6.7); Atypical Lymphocytes % N; Bands % 1; Diff Comment Manual Differential; Metamyelocytes % 4; Myelocytes % 1
[2021-05-18 08:31] LABS: Anisocytosis 1+; Polychromasia Present
[2021-05-18] MEDS: Budesonide/Formoterol 80/4.5 6.9 GM 60 PUFF INH IH (08:37)
[2021-05-18] MEDS: Tiotropium Bromide-Respimat 10 PUFF INH 2 PUFF IH (08:38)
--- NOTE | 2021-05-18 09:55 | CMPROGNOTE_ITS ---
- If Service Date Differs Date of service: 05/18/21 Time of Service: 09:55 Care Management Progress Note S/O: Na remains inpatient at this time, per MD she may require two weeks of IV ABX treatment; anticipate she will follow up at the [facility] Infusion room for treatment, once medically stable for discharge. CM continues to follow. A: 55 year old female admitted to [facility] 05/15/21 for Pyelonephritis, hypokalemia P: Na remains inpatient at this time, anticipate she will return home when ready per MD and follow up with her PCP and plan of care as prescribed. 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 She will transport via private vehicle with family. CM continues to follow.
[2021-05-18] MEDS: cefTRIAXone 2 GM/50 ML BAG IVPB (10:31)
[2021-05-18 11:21] VITALS: BP 119/77; PULSE 75; RESP 20; TEMP 36.5; O2SAT 90
[2021-05-18] MEDS: Acetaminophen 500 MG TAB PO (11:56)
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
--- NOTE | 2021-05-18 17:31 | PDOC.CMDIS ---
- If Service Date Differs Date of service: 05/18/21 Time of Service: 17:31 LACE Index Scoring Tool - Questions: Length of Stay (in days): 3 Acuity (Admit via E.D.?): Yes Comorbidities: Diabetes w/o Complication, Congestive Heart Failure, Chronic Pulmonary Disease E.D. Visits: 3 - Answers: Total Score: 14 Risk of Readmission: High Risk Care Management Discharge Reason for Hospitalization: Pylonephritis, acute hypokalemia, sepsis, cholelithiasis Discharge Plan: Discharge home on PO antibiotics with no new services via private vehicle with family. Follow up with PCP within 14 days and remain out of work until Friday. Patient/Family Education Needs: Review discharge instructions, limitations and plan to follow up with community providers. ask me three.
== END 2021-05-18 14:16 | disposition home or self-care (01) | DRG 872 ==
LOC: ER 19:06 → MS 19:43
PROVIDERS: Nurse Practitioner Acute Care; Student in an Organized Health Care Education/Training Program; Admitting Provider Family Medicine; Emergency Provider Student in an Organized Health Care Education/Training Program; PCP Student in an Organized Health Care Education/Training Program; Visit Provider Family Medicine
DX: A41.51 Sepsis due to Escherichia coli [E. coli] (principal); N10 Acute pyelonephritis; Z68.43 Body mass index [BMI] 50.0-59.9, adult; E87.6 Hypokalemia; Z96.643 Presence of artificial hip joint, bilateral; K80.20 Calculus of gallbladder without cholecystitis without obstruction; Z87.442 Personal history of urinary calculi; G89.29 Other chronic pain; E11.9 Type 2 diabetes mellitus without complications; M54.50 Low back pain, unspecified; J44.9 Chronic obstructive pulmonary disease, unspecified; F41.8 Other specified anxiety disorders; Z80.0 Family history of malignant neoplasm of digestive organs; Z80.3 Family history of malignant neoplasm of breast; R51.9 Headache, unspecified; K21.9 Gastro-esophageal reflux disease without esophagitis; M10.9 Gout, unspecified; I25.2 Old myocardial infarction; I10 Essential (primary) hypertension; E78.5 Hyperlipidemia, unspecified; E66.01 Morbid (severe) obesity due to excess calories; G47.62 Sleep related leg cramps; M48.02 Spinal stenosis, cervical region; N39.3 Stress incontinence (female) (male); Z98.1 Arthrodesis status; D25.9 Leiomyoma of uterus, unspecified; Z20.822 Contact with and (suspected) exposure to COVID-19; B96.20 Unspecified Escherichia coli [E. coli] as the cause of diseases classified elsewhere; M25.552 Pain in left hip; I25.10 Atherosclerotic heart disease of native coronary artery without angina pectoris; Z99.81 Dependence on supplemental oxygen
CPT/HCPCS: 36410; 36415; 80048; 80053; 85652; 87040; 87077; 87635; 94640; 96361; 96365; 96368; 99285; J1650; 73502; 74176; 81003; 81015; 83605; 83735; 85025; 86140; 87086; 87186; 99222; 99233; 99238; J3480; J3490

== ENCOUNTER 2021-08-07 02:05 | Outpatient (CLI) | payer MEDICAID, SELFPAY ==
--- NOTE | 2021-08-07 07:45 | DI.CT_ITS ---
Exam(s) CT CHEST WO EXAM: CT CHEST WO CLINICAL HISTORY: follow up nodular infiltrates seen on last scan,pulmonary nodules,r91.8 TECHNIQUE: CT examination of the chest was performed without contrast administration. COMPARISON: CT CT CHEST PE CTA from 03/06/2021 FINDINGS: Images obtained through the upper abdomen show unremarkable appearance of visualized portions of the liver and spleen. Note is made of cholelithiasis. Note is made of coronary artery calcification. There is no mediastinal or hilar adenopathy. Mediastinal vascular structures appear intact by noncon trast criteria. Tracheobronchial tree appears intact. No pleural effusion or pleural-based mass. Prior CT examination of March 06 showed predominantly peripheral patchy infiltrates in both lungs. These have largely resolved. Bilateral areas linear radiodensity persists consistent with scarring. No new consolidation or mass. IMPRESSION: Interval resolution of previously noted peripheral pulmonary consolidation. No acute findings. RADIATION DOSE DELIVERED: 825.61mGy.cm Total DLP 24.98mGy CTDIvol 825.61mGy.cm Total DLP 24.98mGy CTDIvol RADIATION OPTIMIZATION: All CT scans at this facility use at least one of these dose optimization te chniques: automated exposure control; mA and/or kV adjustment per patient size (includes targeted exa ms where dose is matched to clinical indication); or iterative reconstruction.
== END 2021-08-07 02:25 ==
PROVIDERS: PCP Student in an Organized Health Care Education/Training Program; Visit Provider Student in an Organized Health Care Education/Training Program
DX: R91.8 Other nonspecific abnormal finding of lung field (principal)
CPT/HCPCS: 71250

== ENCOUNTER 2021-11-13 04:38 | Outpatient (CLI) | payer MEDICAID, SELFPAY | END 2021-11-13 04:39 | disposition home or self-care (01) | LOC: LBO 04:38 | PROVIDERS: PCP Student in an Organized Health Care Education/Training Program; Visit Provider Student in an Organized Health Care Education/Training Program ==

== ENCOUNTER 2021-11-21 03:08 | Outpatient (CLI) | payer MEDICAID, SELFPAY ==
[2021-11-21 14:51] LABS: HCT 35.6 % (36.0-46.0); HGB 10.3 g/dL (11.2-15.7); MCH 25.7 pg (27.0-33.0); MCHC 28.9 % (32.0-36.0); MCV 88.8 fL (80-95); MPV 10.2 fL (8.0-11.0); Platelet Count 230 10^3/uL (130-400); RBC 4.01 10^6/uL (3.93-5.22); RDW 15.5 % (11.7-14.6); RDW-SD 50.6 fL; WBC 10.71 10^3/uL (4.4-10.8)
[2021-11-21 16:07] LABS: ALT 27 U/L (14-59); AST 19 U/L (15-37); Albumin 3.5 g/dL (3.4-5.0); Alkaline Phosphatase 153 U/L (46-116); Anion Gap 5.7 mmol/L (3-11); BUN 21 mg/dL (7-18); Bilirubin, Total 0.3 mg/dL (0.2-1.0); CO2 32.3 mmol/L (21.0-32.0); CREATININE 1.1 mg/dL (0.55-1.02); Calcium 8.5 mg/dL (8.5-10.1); Chloride 103 mmol/L (98-107); Estimated GFR 51.57 (mL/min/1.73m2); Glucose 150 mg/dL (74-106); Potassium 4.1 mmol/L (3.5-5.1); Sodium 141 mmol/L (136-145); Total Protein 7.2 g/dL (6.4-8.2)
== END 2021-11-21 03:09 | disposition home or self-care (01) ==
LOC: LBO 03:08
PROVIDERS: PCP Student in an Organized Health Care Education/Training Program; Visit Provider Student in an Organized Health Care Education/Training Program
DX: D64.9 Anemia, unspecified (principal); E11.9 Type 2 diabetes mellitus without complications; I10 Essential (primary) hypertension; I25.10 Atherosclerotic heart disease of native coronary artery without angina pectoris; N28.9 Disorder of kidney and ureter, unspecified; R63.5 Abnormal weight gain; K59.00 Constipation, unspecified; R79.89 Other specified abnormal findings of blood chemistry
CPT/HCPCS: 36415; 80053; 85027; 84443

== ENCOUNTER 2022-08-28 01:50 | Outpatient (CLI) | payer MEDICAID, SELFPAY ==
--- NOTE | 2022-08-28 07:45 | DI.MAMMO_ITS ---
Exam(s) MAMMO SCREENING EXAM: MAMMO SCREENING CLINICAL HISTORY: screening,Z12.39. TECHNIQUE: Bilateral full field digital CC and MLO mammographic images were obtained with 3D tomosyn thesis and utilizing computer aided detection (CAD). COMPARISON: Prior mammograms were reviewed. FINDINGS: There has been no significant change in the appearance and distribution of the fibroglandular tissue. There are no CAD designations. There are no new spiculated masses nor malignant appearing microcalcification groups. There is no significant architectural distortion nor skin thickening-retraction. IMPRESSION: No radiographic evidence of malignancy. BI-RADS Category 1 - Negative Breast Density - Category A - Almost entirely fatty Breast density Category C or D implies that the patient has dense breast tissue. Dense breast tissue can make it harder to find cancer on a mammogram. Dense breast tissue is also associated with an incr eased risk of breast cancer. This information about the result of the mammogram report was provided to the patient to raise their awareness. Use this report when you speak with the patient about their risks for breast cancer, which includes their family history. At that time, you may recommend additional screening tests (Ultrasoun d or MRI) as these tests may add significant information. A negative radiographic report should not delay biopsy if a dominant or clinically suspicious mass is present. Up to ten percent of cancers are not identified on mammography. A negative report may reinforce clinical impression. Adenosis and dense breasts may obscure an underlying neoplasm. False positive reports average 6 to 10%. Patient will receive a letter notifying them of these results.
== END 2022-08-28 02:10 ==
LOC: DI 01:50
PROVIDERS: PCP Student in an Organized Health Care Education/Training Program; Visit Provider Nurse Practitioner Family
DX: Z12.31 Encounter for screening mammogram for malignant neoplasm of breast (principal)
CPT/HCPCS: 77063; 77067

== ENCOUNTER 2022-08-28 02:52 | Outpatient (CLI) | payer MEDICAID, SELFPAY ==
[2022-08-28 15:36] LABS: Anion Gap 5.5 mmol/L (3-11); BUN 10 mg/dL (7-18); CO2 31.5 mmol/L (21.0-32.0); CREATININE 1.3 mg/dL (0.55-1.02); Calcium 9.6 mg/dL (8.5-10.1); Chloride 97 mmol/L (98-107); Estimated GFR 48.26 (mL/min/1.73m2); Glucose 123 mg/dL (74-106); Magnesium 1.7 mg/dL (1.8-2.4); Potassium 4.3 mmol/L (3.5-5.1); Sodium 134 mmol/L (136-145)
== END 2022-08-28 02:53 | disposition home or self-care (01) ==
LOC: LBO 02:52
PROVIDERS: PCP Student in an Organized Health Care Education/Training Program; Visit Provider Student in an Organized Health Care Education/Training Program
DX: R79.89 Other specified abnormal findings of blood chemistry (principal); Z86.39 Personal history of other endocrine, nutritional and metabolic disease
CPT/HCPCS: 36415; 80048; 83735

== ENCOUNTER 2022-09-30 02:40 | Outpatient (CLI) | payer MEDICAID, SELFPAY ==
[2022-09-30 16:02] LABS: Anion Gap 7.1 mmol/L (3-11); BUN 8 mg/dL (7-18); CO2 32.9 mmol/L (21.0-32.0); CREATININE 1.2 mg/dL (0.55-1.02); Calcium 9.7 mg/dL (8.5-10.1); Chloride 101 mmol/L (98-107); Estimated GFR 53.13 (mL/min/1.73m2); Glucose 110 mg/dL (74-106); Potassium 4.4 mmol/L (3.5-5.1); Sodium 141 mmol/L (136-145)
== END 2022-09-30 02:41 | disposition home or self-care (01) ==
LOC: LBO 02:40
PROVIDERS: PCP Student in an Organized Health Care Education/Training Program; Visit Provider Student in an Organized Health Care Education/Training Program
DX: R79.89 Other specified abnormal findings of blood chemistry (principal); R63.5 Abnormal weight gain; D64.9 Anemia, unspecified; F41.8 Other specified anxiety disorders; I10 Essential (primary) hypertension
CPT/HCPCS: 36415; 80048

== ENCOUNTER 2022-10-17 17:41 | Emergency (ER) | payer MEDICAID, SELFPAY ==
[2022-10-17 17:50] VITALS: BP 119/78; PULSE 72; RESP 18; TEMP 36.8; O2SAT 92
[2022-10-17 17:55] VITALS: RESP 18
--- NOTE | 2022-10-17 17:57 | NUR.NOTE ---
pt gave S[employer]UP MIXER and RN permission to cut her left ring finger ring off with vishnu scissors.
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
== END 2022-10-17 18:00 | disposition home or self-care (01) ==
LOC: ER 18:03
PROVIDERS: Emergency Provider Nurse Practitioner Family; PCP Student in an Organized Health Care Education/Training Program
DX: M79.89 Other specified soft tissue disorders (principal); I10 Essential (primary) hypertension; I25.2 Old myocardial infarction; Z79.82 Long term (current) use of aspirin
CPT/HCPCS: 99282

== ENCOUNTER 2022-11-26 13:12 | Outpatient (REF) | payer MEDICAID, SELFPAY | END 2022-11-26 13:13 | disposition home or self-care (01) | LOC: LBN 13:12 | PROVIDERS: PCP Student in an Organized Health Care Education/Training Program; Referring Provider Student in an Organized Health Care Education/Training Program; Visit Provider Student in an Organized Health Care Education/Training Program | DX: N39.0 Urinary tract infection, site not specified (principal) | CPT/HCPCS: 87077; 87086; 87186 ==

== ENCOUNTER 2022-12-12 14:51 | Emergency (ER) | payer MEDICAID, SELFPAY ==
[2022-12-12] VITALS (27 sets, daily range): BP systolic 101–152; BP diastolic 40–81; PULSE 63–77; RESP 19–29; TEMP 36.9; O2SAT 79–98
--- NOTE | 2022-12-12 15:30 | RT.EKG_ITS ---
APPROVED REPORT Exam: Resting ECG Reason for Exam: sob Patient Location: E HR:72 bpm ECG Measurements Heart Rate 72 AXIS DC 181 P 35 QRSd 88 QRS 21 QT 397 T 60 QTc 433 Conclusion Sinus rhythm...normal P axis, V-rate 60- 99. Sinus. Normal axis. No STEMI. I have reviewed and interpreted ECG and agree with software generated interpretation.
--- NOTE | 2022-12-12 15:30 | DI.RAD_ITS ---
Exam(s) XR CHEST 2V PA LATERAL EXAM: XR CHEST 2V PA LATERAL CLINICAL HISTORY: cough, sob, r/o acute disease TECHNIQUE: 2D digital imaging was performed of the chest. Two images were obtained. PA and lateral views were obtained. COMPARISON: CR,XR XR PORTABLE CHEST AP from 03/06/2021 FINDINGS: MEDIASTINUM: Normal. HEART: Normal. PULMONARY VASCULATURE: Normal. LUNGS: Clear. PLEURAL SPACE: No pleural effusion or pneumothorax. BONE:Within normal limits for the patient's age. OTHER FINDINGS:Normal. IMPRESSION: No acute pulmonary findings. DATA REPOSITORY: RADIATION DOSE DELIVERED:
--- NOTE | 2022-12-12 15:39 | W.ED.GENAD ---
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 Myocardial infarct from [place] at age 68 Paternal Grandmother Heart disease Paternal Grandfather Myocardial infarct fatal [place] at age 20 Social History Smoking/Tobacco Use Status: Never Smoking risk assessment performed?: Yes Alcohol Intake: never Drug use: Daily Substance use type: marijuana Details: marijuana: edibles Adopted: No Caregiver/Support person: No Foster care: No Household members: significant other and none Housing: apartment Number of Children: 3 number of grandchildren: 2 Communication Needs: None Education Level: high school Do you need help understanding health information?: Rarely current occupation: disabled Pets and animals: No Sexually active: No Do you think of yourself as: straight/heterosexual Current gender identity: female What is your relationship status?: living with partner How often do you talk on the phone with friends or family?: three or more times per week How often do you get together with friends or relatives?: once per week Do you belong to any clubs or organized social groups?: no Panel score (0-1 are the most socially isolated patients): 2 What type of physical activity do you participate in: additional Details: Body Groove exercises Duration: < 15 minutes/day Frequency: 1-2 times per week Nurys/Evangelical: Mu-Ism Special nurys needs: No Do you feel safe at home: Yes Do you feel safe in your relationship?: Yes Exam Const General: cooperative and no acute distress Nutritional Appearance: obese morbidly obese Orientation: alert, awake and oriented x3 HENMT Head: normal to inspection Face and sinus: normal facial exam Eyes General: appearance normal, both eyes and all related structures Pupils: PERRL EOM: EOM intact bilaterally Neck Neck: normal visual inspection and No submandibular swelling Lymphatic: no lymphadenopathy noted Chest Chest: normal inspection of the chest and no tenderness Resp Effort & Inspection: normal respiratory effort and able to speak in complete sentences Auscultation: diminished lung sounds bilaterally throughout Cardio Rate: regular rate Rhythm: regular rhythm GI Inspection: normal to inspection and obesity Palpation: soft, not firm, not rigid and nontender Auscultation: hypoactive bowel sounds Back/Spine/Pelvis Thoracic/Lumbar Spine: thoracic and lumbar spine normal to inspection Skin General skin exam: no rashes or lesions noted Neuro General: patient alert, patient awake and patient oriented x3 Cognition: normal cognition Speech: speech normal Motor: muscle tone normal throughout Sensory Exam: no sensory deficits noted Extrem General: normal to inspection, full ROM and no edema Psych Appearance: grossly normal Mental Status: mental status grossly normal Speech and Movement: speech and movement normal Affect: normal affect Course Vital Signs Vital signs: Vital Signs Temperature 98.4 F 12/12/22 14:57 Pulse 72 12/12/22 14:57 Respiratory Rate 20 12/12/22 14:57 Blood Pressure 118/81 12/12/22 14:57 Pulse Oximetry 79 L 12/12/22 14:57 Temperature 98.4 F 12/12/22 14:57 Temperature Source Tympanic 12/12/22 14:57 Pulse 71 12/12/22 15:31 Pulse 68 12/12/22 15:31 Respiratory Rate 29 H 12/12/22 15:31 Respiratory Effort Short of Breath, Labored 12/12/22 14:58 Blood Pressure 115/71 12/12/22 15:31 Blood Pressure Mean 80 12/12/22 15:31 Blood Pressure Position Sitting 12/12/22 14:57 Pulse Oximetry 79 L 12/12/22 14:57 Oxygen Delivery Method Room Air 12/12/22 14:57 Oxygen Flow Rate 0 12/12/22 14:57 Pain Level 0 12/12/22 14:57
[2022-12-12 16:04] LABS: Abs Immature Grans 0.12 10^3/uL (0.0-0.06); Absolute Basophil Count 0.04 10^3/uL (0.0-0.2); Absolute Eosinophil Count 0.22 10^3/uL (0.0-0.7); Absolute Lymphocyte Count 2.47 10^3/uL (1.2-3.4); Absolute Monocyte Count 0.82 10^3/uL (0.1-0.8); Basophils % 0.3; Eosinophils % 1.7; HGB 11.4 g/dL (11.2-15.7); Immature Grans % 0.9; Lymphocytes % 19.1; MCH 27.3 pg (27.0-33.0); MCHC 30.8 % (32.0-36.0); MCV 89 fL (80-95); MPV 9.9 fL (8.0-11.0); Monocytes % 6.3; Neutrophils % 71.7; Nucleated RBC 0.2 % (0.0-0.3); Platelet Count 223 10^3/uL (130-400); RBC 4.17 10^6/uL (3.93-5.22); RDW 15.3 % (11.7-14.6); RDW-SD 49.3 fL; WBC 12.94 10^3/uL (4.4-10.8)
[2022-12-12 16:06] LABS: Absolute Neutrophil Count 9.28 10^3/uL (1.2-6.7)
[2022-12-12 16:18] LABS: ALT 21 U/L (14-59); AST 15 U/L (15-37); Albumin 3.4 g/dL (3.4-5.0); Alkaline Phosphatase 135 U/L (46-116); Anion Gap 2.7 mmol/L (3-11); BUN 7 mg/dL (7-18); Bilirubin, Total 0.5 mg/dL (0.2-1.0); CO2 36.3 mmol/L (21.0-32.0); Calcium 9.3 mg/dL (8.5-10.1); Chloride 102 mmol/L (98-107); Estimated GFR 66.12 (mL/min/1.73m2); Glucose 98 mg/dL (74-106); Magnesium 1.7 mg/dL (1.8-2.4); Potassium 4.1 mmol/L (3.5-5.1); Sodium 141 mmol/L (136-145); Total Protein 7.7 g/dL (6.4-8.2); Troponin I < 50 ng/L (<or=60)
[2022-12-12 16:39] LABS: COVID-19 PCR Negative (Negative); Influenza A PCR Negative (Negative); Influenza B PCR Negative (Negative); RSV PCR Negative (Negative)
[2022-12-12 16:44] LABS: Source Nasopharynx
[2022-12-12] MEDS: MAGNESIUM SULFATE 1 GM/100 ML BAG IVPB (16:57)
[2022-12-12] MEDS: Albuterol/Ipratropium 3 ML UPD VIAL UPD (17:09)
[2022-12-12] MEDS: methylPREDNISolone SUCC 125 MG VIAL IVP (17:43)
[2022-12-12] MEDS: Albuterol 2.5 MG/3 ML INH SOLN VIAL 5 MG UPD (17:43)
[2022-12-12 17:53] LABS: D-Dimer 594 ng/mlFEU (<500)
--- NOTE | 2022-12-12 18:15 | DI.CT_ITS ---
Exam(s) CT CHEST PE CTA EXAM: CT CHEST PE CTA CLINICAL HISTORY: hypoxia, r/o acute disease/PE. TECHNIQUE: Imaging Protocol: CT angiography of the chest was performed using pulmonary embolus natividad col. Multi planar reconstructions were performed. CONTRAST MATERIAL: Intravenous: Omnipaque 350 Contrast volume: 100 cc COMPARISON: CT CT CHEST WO from 08/07/2021 FINDINGS: CHEST: PULMONARY ARTERIES: There are no obvious intraluminal filling defects to suggest acute pulmonary embo li. LUNGS: There is pleural based nodular infiltrate in the right upper lobe anterior segment, not previo usly present. This measures 1.3 x 1.4 cm., and is just above the minor fissure. Also some patchy mi ld infiltrate in the right lower lobe, most prominent in the posterior basal segment. Increased from the previous study. No associated pleural effusion. On the opposite-left side there is mild peripheral patchy infiltrate in the left upper lobe. Also ar eas of platelike atelectasis. Also some mild pleural based increased markings in the posterior basal segment of the left lower lobe, more so than previous. There is no pleural effusion on either side. . No pneumothorax. MEDIASTINUM: There is no hilar nor mediastinal adenopathy. Visualized thyroid unremarkable. CARDIAC: Heart size is upper normal. There is no pericardial effusion.Caliber of the thoracic aorta is within normal limits. No dissection. There is no significant shift of the interventricular septum . PARTIALLY VISUALIZED UPPERMOST ABDOMEN: Cholelithiasis noted. No adrenal masses. No splenomegaly. Hepatic steatosis evident.. OSSEOUS: No significant osseous lesions.No fractures.. IMPRESSION: 1. No evidence of acute pulmonary emboli. No evidence of aortic dissection. No pericardial effusion . No pleural effusions. No intrathoracic adenopathy. 2. Bilateral patchy infiltrates. Most significant infiltrate is pleural based in the right upper lob e anterior segment measuring 1.3 x 1.4 cm. Recommend follow-up CT scan after appropriate clinical in terval. 3. Cholelithiasis noted. RADIATION DOSE DELIVERED: 598.6mGy.cm Total DLP DATA REPOSITORY: All CT scans at this facility are submitted to the National Radiology Data Registry (NRDR) Dose Index Registry (DIR) with the [employer] (ACR). RADIATION OPTIMIZATION: All CT scans at this facility use at least one of these dose optimization te chniques: automated exposure control; mA and/or kV adjustment per patient size (includes targeted exa ms where dose is matched to clinical indication); or iterative reconstruction.
[2022-12-12] MEDS: Normal Saline 1,000 ML 1000 ML IV (18:32)
[2022-12-12] MEDS: Normal Saline - Diluent 50 ML VIAL IJ (19:23)
[2022-12-12] MEDS: Omnipaque 350 MG/ML 100 ML BTL IJ (19:23)
--- NOTE | 2022-12-12 19:46 | DI.VRAD_ITS ---
PROCEDURE INFORMATION: Exam: CTA Chest With Contrast Exam date and time: 12/12/2022 19:23 Age: 56 years old Clinical indication: Other: Hypoxia, R/O acute disease/pe TECHNIQUE: Imaging protocol: Computed tomographic angiography of the chest with contrast. 3D rendering (Not supervised by radiologist): MIP and/or 3D reconstructed images were created by the technologist. Contrast material: 350; Contrast volume: 100 ml; Contrast route: INTRAVENOUS (IV); COMPARISON: CT CHEST PE CTA 03/06/2021 19:04 FINDINGS: Pulmonary arteries: No pulmonary emboli. Aorta: No aortic aneurysm. No aortic dissection. Lungs: Mild scattered subsegmental atelectasis. No airspace consolidation. Pleural spaces: No pneumothorax. No pleural effusion. Heart: Moderate cardiomegaly. Lymph nodes: No enlarged lymph nodes. Gallbladder and bile ducts: Cholelithiasis. Bones/joints: Cervical spine fixation hardware is partially assessed. Degenerative changes in the spine. Upper thoracic chronic appearing central canal stenosis. No acute fracture or subluxation. Soft tissues: No suspicious lesions. IMPRESSION: 1. No pulmonary emboli are seen. 2. Mild scattered subsegmental atelectasis. 3. Additional findings as described. Dictated and Authenticated by: Dania Hawkins MD. Ordering:MARSHA Dietz MD
--- NOTE | 2022-12-12 19:55 | NUR.NOTE ---
Pt placed on care management list for pulmonary for SOB /COPD
[2022-12-12] MEDS: Amoxicillin 875/Clav. 125 TAB PO (20:15)
== END 2022-12-12 20:26 | disposition home or self-care (01) ==
PROVIDERS: Emergency Provider Physician Assistant; PCP Student in an Organized Health Care Education/Training Program
DX: J20.9 Acute bronchitis, unspecified (principal); J44.0 Chronic obstructive pulmonary disease with (acute) lower respiratory infection; E11.9 Type 2 diabetes mellitus without complications; R06.02 Shortness of breath; R05.9 Cough, unspecified; E83.42 Hypomagnesemia; Z99.81 Dependence on supplemental oxygen
CPT/HCPCS: 71275; 80053; 87637; 93005; 96361; 96365; 96375; 99285; 71046; 83735; 84484; 85025; 85379; 93010; 99284; J2930; J3475; J3490; J7613; J7620

== ENCOUNTER 2022-12-27 02:57 | Outpatient (CLI) | payer MEDICAID, SELFPAY ==
[2022-12-27 13:00] LABS: Abs Immature Grans 0.12 10^3/uL (0.0-0.06); Absolute Basophil Count 0.05 10^3/uL (0.0-0.2); Absolute Eosinophil Count 0.23 10^3/uL (0.0-0.7); Absolute Lymphocyte Count 2.22 10^3/uL (1.2-3.4); Absolute Neutrophil Count 13.51 10^3/uL (1.2-6.7); Basophils % 0.3; Eosinophils % 1.3; HGB 11.8 g/dL (11.2-15.7); Immature Grans % 0.7; Lymphocytes % 12.8; MCH 26.9 pg (27.0-33.0); MCHC 30.3 % (32.0-36.0); MCV 89 fL (80-95); MPV 10.4 fL (8.0-11.0); Monocytes % 6.9; Platelet Count 258 10^3/uL (130-400); RBC 4.38 10^6/uL (3.93-5.22); RDW 14.7 % (11.7-14.6); RDW-SD 47.8 fL; WBC 17.32 10^3/uL (4.4-10.8)
[2022-12-27 13:41] LABS: ALT 23 U/L (14-59); AST 16 U/L (15-37); Albumin 3.4 g/dL (3.4-5.0); Alkaline Phosphatase 139 U/L (46-116); Anion Gap 4.5 mmol/L (3-11); BUN 12 mg/dL (7-18); Bilirubin, Total 0.5 mg/dL (0.2-1.0); CO2 36.5 mmol/L (21.0-32.0); CREATININE 1.3 mg/dL (0.55-1.02); Calcium 9.3 mg/dL (8.5-10.1); Chloride 100 mmol/L (98-107); Estimated GFR 47.96 (mL/min/1.73m2); Glucose 115 mg/dL (74-106); Potassium 4.8 mmol/L (3.5-5.1); Sodium 141 mmol/L (136-145); Total Protein 7.7 g/dL (6.4-8.2)
== END 2022-12-27 02:58 | disposition home or self-care (01) ==
LOC: LBO 02:57
PROVIDERS: PCP Student in an Organized Health Care Education/Training Program; Visit Provider Student in an Organized Health Care Education/Training Program
DX: N18.30 Chronic kidney disease, stage 3 unspecified (principal); E11.9 Type 2 diabetes mellitus without complications; I10 Essential (primary) hypertension; F41.8 Other specified anxiety disorders
CPT/HCPCS: 36415; 80053; 85025

== ENCOUNTER 2023-01-01 17:43 | Outpatient (REF) | payer MEDICAID, SELFPAY ==
[2023-01-01 21:23] LABS: Bilirubin Negative (Negative); Blood Trace-intact (Negative); Clarity Cloudy (Clear); Glucose Negative (Negative); Ketones Negative (Negative); Leukocyte Esterase Moderate (Negative); Nitrite Negative (Negative); Specific Gravity 1.015 (1.005-1.025); Urobilinogen 0.2 mg/dL (Up to 0.2)
[2023-01-01 22:20] LABS: Bacteria Few HPF (Negative); C & S Indicated? No/Sq. Contamination; Casts 0-2 Hyaline LPF (Negative); Crystals Negative HPF (Negative); Epithelial Cells Many HPF (Negative); Mucus Negative (Negative); Other Cells Rare Transitional (Negative); RBC 0-2 HPF (0-2); WBC >50 HPF (0-5)
== END 2023-01-01 17:44 | disposition home or self-care (01) ==
LOC: LBN 17:43
PROVIDERS: PCP Student in an Organized Health Care Education/Training Program; Visit Provider Physician Assistant
DX: R39.89 Other symptoms and signs involving the genitourinary system (principal); R30.0 Dysuria; R39.15 Urgency of urination
CPT/HCPCS: 81003; 81015

== ENCOUNTER 2023-03-28 12:41 | Outpatient (CLI) | payer MEDICAID, SELFPAY ==
--- NOTE | 2023-03-28 12:30 | RT.EKG_ITS ---
APPROVED REPORT Exam: Resting ECG Reason for Exam: CAD, HTN Patient Location: O HR:65 bpm ECG Measurements Heart Rate 65 AXIS WI 180 P 25 QRSd 92 QRS 5 QT 398 T 46 QTc 414 Conclusion Sinus rhythm...normal P axis, V-rate 50- 99 Low voltage, precordial leads...precordial leads <1.0mV Baseline wander in lead(s) V1 Otherwise normal ECG
== END 2023-03-28 12:42 | disposition home or self-care (01) ==
LOC: DI.CARD 12:43
PROVIDERS: PCP Student in an Organized Health Care Education/Training Program; Visit Provider Internal Medicine Cardiovascular Disease
DX: I10 Essential (primary) hypertension (principal); I25.10 Atherosclerotic heart disease of native coronary artery without angina pectoris
CPT/HCPCS: 93010

== ENCOUNTER 2023-04-07 02:41 | Outpatient (CLI) | payer MEDICAID, SELFPAY ==
[2023-04-07 12:19] LABS: HGB 11.7 g/dL (11.2-15.7)
[2023-04-07 12:34] LABS: Anion Gap 7.6 mmol/L (3-11); BUN 8 mg/dL (7-18); CO2 31.4 mmol/L (21.0-32.0); CREATININE 1.2 mg/dL (0.55-1.02); Calcium 9.3 mg/dL (8.5-10.1); Chloride 102 mmol/L (98-107); Glucose 172 mg/dL (74-106); Potassium 3.5 mmol/L (3.5-5.1); Sodium 141 mmol/L (136-145); TSH (W/Ref FT4) 2.64 uIU/mL (0.36-3.74)
== END 2023-04-07 02:42 | disposition home or self-care (01) ==
LOC: LOS 02:41
PROVIDERS: PCP Student in an Organized Health Care Education/Training Program; Visit Provider Student in an Organized Health Care Education/Training Program
DX: E11.9 Type 2 diabetes mellitus without complications (principal); N18.30 Chronic kidney disease, stage 3 unspecified; D64.9 Anemia, unspecified
CPT/HCPCS: 36415; 80048; 84443; 85018

== ENCOUNTER 2023-06-02 11:36 | Emergency (ER) | payer MEDICAID, SELFPAY ==
[2023-06-02 11:39] VITALS: BP 139/70; PULSE 67; RESP 15; TEMP 36.6; O2SAT 94
== END 2023-06-02 13:19 | disposition left against medical advice (07) ==
LOC: ER 13:24
PROVIDERS: PCP Student in an Organized Health Care Education/Training Program
DX: Z53.21 Procedure and treatment not carried out due to patient leaving prior to being seen by health care provider (principal)

== ENCOUNTER 2023-10-10 12:16 | Outpatient (REF) | payer MEDICAID, SELFPAY ==
[2023-10-10 15:23] LABS: HCT 37.1 % (36.0-46.0); HGB 12.2 g/dL (11.2-15.7); MCH 28.6 pg (27.0-33.0); MCHC 32.9 % (32.0-36.0); MCV 87 fL (80-95); MPV 12.1 fL (8.0-11.0); Platelet Count 212 10^3/uL (130-400); RBC 4.26 10^6/uL (3.93-5.22); RDW 12.6 % (11.7-14.6); RDW-SD 39.8 fL; WBC 9.68 10^3/uL (4.4-10.8)
[2023-10-10 15:45] LABS: ALT 14 U/L (14-59); AST 11 U/L (15-37); Albumin 3.6 g/dL (3.4-5.0); Alkaline Phosphatase 128 U/L (46-116); Anion Gap 6.9 mmol/L (3-11); BUN 14 mg/dL (7-18); Bilirubin, Total 0.4 mg/dL (0.2-1.0); CO2 32.1 mmol/L (21.0-32.0); CREATININE 1.1 mg/dL (0.55-1.02); Calcium 9.3 mg/dL (8.5-10.1); Calculated LDL 95 mg/dL (<100); Chloride 105 mmol/L (98-107); Cholesterol 173 mg/dL (<200); Estimated GFR 58.61 (mL/min/1.73m2); Glucose 101 mg/dL (74-106); HDL Cholesterol 47 mg/dL (40-60); Potassium 4.3 mmol/L (3.5-5.1); Sodium 144 mmol/L (136-145); TSH (W/Ref FT4) 1.14 uIU/mL (0.36-3.74); Total Protein 7.1 g/dL (6.4-8.2); Triglyceride 155 mg/dL (<150)
== END 2023-10-10 12:17 | disposition home or self-care (01) ==
LOC: LBN 12:16
PROVIDERS: PCP Student in an Organized Health Care Education/Training Program; Visit Provider Student in an Organized Health Care Education/Training Program
DX: E11.9 Type 2 diabetes mellitus without complications (principal); I10 Essential (primary) hypertension; D64.9 Anemia, unspecified; N18.30 Chronic kidney disease, stage 3 unspecified
CPT/HCPCS: 80053; 80061; 85027; 84443

== ENCOUNTER 2025-07-05 16:30 | Outpatient (REF) | payer MEDICAID, SELFPAY ==
--- NOTE | 2025-07-05 14:00 | SKI_PTH ---
PATIENT: Na Matson LOC: [facility] U#:[id number] AGE/SX: 59/F ROOM: RE07/05/[address]: Akosua Ac : 1965 BED: DIS: 07/05/2025 SPEC #: [id number] RECD: 07/05/25 17:56 STATUS: SHUBHAM REShahzad #: [id number] DENISA: 07/05/25 14:[address]: Akosua Ac DEPT: Surgical Specimen RECD BY: Yaneth Park ENTERED: 07/05/25 17:57 SP TYPE: LIZETT SANDOVAL DR: Hu Torres DO Tissues: 1 - SKIN BIOPSY(SHAVE/PUNCH) Procedures: IMMUNOPEROXIDASE STAIN SKIN LEVEL 4 Comments: [id number]
== END 2025-07-05 16:31 | disposition home or self-care (01) ==
LOC: LBN 16:30
PROVIDERS: PCP Family Medicine; Visit Provider Registered Nurse Maternal Newborn
DX: C43.39 Malignant melanoma of other parts of face (principal)
CPT/HCPCS: 88305; 88361